=== PATIENT | female | born 1940 | race Caucasian/White ===

== ENCOUNTER 2016-10-22 19:35 | Inpatient (IN) ==
[2016-10-22] MEDS ORDERED: Ipratropium/Albuterol Neb 3 ML IH ONE (20:01)
--- NOTE | 2016-10-22 20:38 | Emergency Department Note ---
Disposition Clinical Impression: Pneumonia Qualifiers: Pneumonia type: due to unspecified organism Laterality: right Lung location: unspecified part of lung Qualified Code(s): J18.9 - Pneumonia, unspecified organism Disposition: Admitted As Inpatient Condition: Good Time of Disposition: 22:49 SOB HPI - General Chief Complaint: ED Shortness of Breath/Dyspnea Stated Complaint: "BHARGAVI/Pneumonia" Time Seen by Provider: 10/22/16 19:54 Source: patient Mode of arrival: ambulatory Limitations: no limitations Nursing Notes Reviewed: Yes Vital Signs Reviewed: Yes - History of Present Illness 76-year-old female presents with persistent productive cough and shortness of breath in the context of hospitalization for pneumonia 2 weeks ago. She was discharged with azithromycin and also given prednisone without significant improvement. She has significant antibiotic allergies which is why she is only taking azithromycin. She does not have fevers, but does complain of chills. She denies any chest pain. She denies nausea, vomiting, abdominal pain, change in urination or bowel movements, rashes, lower extremity swelling or pain. Patient admits to tobacco abuse and history of COPD. No alcohol or drug use. Pt Subjective Complaint: shortness of breath, cough - Related Data Home Medications Medication Instructions Recorded Confirmed Aspirin [Adult Low Dose Aspirin EC] 81 mg PO BID 05/30/15 10/22/16 Labetalol [Trandate] 300 mg PO BID 05/30/15 10/22/16 Sertraline [Zoloft] 100 mg PO HS 05/30/15 10/22/16 HydrALAZINE 25 mg PO BID 10/22/16 10/22/16 Oxygen 2.5 l NS CONT 10/22/16 10/22/16 Potassium Chloride [K-Tab ER] 10 meq PO DAILY 10/22/16 10/22/16 Triamterene/HCTZ 37.5/25mg 1 each PO DAILY 10/22/16 10/22/16 [Dyazide] Vitamin E (Dl,Tocopheryl Acet) 400 unit PO DAILY 10/22/16 10/22/16 [Vitamin E] Previous Rx's Medication Instructions Recorded Ipratropium/Albuterol Neb [Duoneb] 3 ml IH [id number] PRN #0 inhsol 07/20/16 Allopurinol [Zyloprim 100 MG] 200 mg PO DAILY #60 tablet 10/11/16 Ascorbic Acid [Vitamin C] 500 mg PO DAILY@0630 #30 tablet 10/11/16 CloNIDine HCl 0.3 mg PO BID #180 tablet 10/11/16 Cyanocobalamin (B-12) [Vitamin B12] 1,000 mcg PO DAILY #30 tablet 10/11/16 Ferrous Sulfate 325 mg PO DAILY@0630 #30 tablet 10/11/16 Allergies Allergy/AdvReac Type Severity Reaction Status Date / Time amlodipine [From Norvasc] Allergy Hives Verified 10/07/16 12:10 Amoxicillin Allergy Hives Verified 10/07/16 12:10 atorvastatin [From Lipitor] Allergy Hives Verified 10/07/16 12:10 cefdinir [From Omnicef] Allergy Hives Verified 10/07/16 12:10 cefuroxime [From Ceftin] Allergy Hives Verified 10/07/16 12:10 cephalexin [From Keflex] Allergy Hives Verified 10/07/16 12:10 ciprofloxacin [From Cipro] Allergy Hives Verified 10/07/16 12:10 doxycycline Allergy Hives Verified 10/07/16 12:10 fluoxetine [From Prozac] Allergy Hives Verified 10/07/16 12:10 iodine Allergy Hives Verified 10/07/16 12:10 levofloxacin [From Levaquin] Allergy Hives Verified 10/07/16 12:10 metoprolol Allergy Hives Verified 10/07/16 12:10 nifedipine Allergy Hives Verified 10/07/16 12:10 Paroxetine [From Paxil] Allergy Hives Verified 10/07/16 12:10 Prazosin Allergy Hives Verified 10/07/16 12:10 Saxagliptin [From Onglyza] Allergy Hives Verified 10/07/16 12:10 simvastatin [From Zocor] Allergy Hives Verified 10/07/16 12:10 sitagliptin [From Januvia] Allergy Hives Verified 10/07/16 12:10 sulfamethoxazole Allergy Hives Verified 10/07/16 12:10 [From Bactrim] trimethoprim [From Bactrim] Allergy Hives Verified 10/07/16 12:10 Oxycodone AdvReac Headache Verified 10/07/16 12:10 All systems ED: reviewed and negative except as stated. Constitutional: Denies: fever Cardiovascular: Denies: chest pain Respiratory: Reports: cough, dyspnea, wheezes Gastrointestinal: Denies: nausea, vomiting Neurological: Reports: weakness Endocrine: Reports: fatigue Past Medical History - Past Medical History Attestation: Yes The following information was validated with the patient. Source: patient Medical history: Reports: arthritis, asthma, cancer, CHF, COPD, GERD, hyperlipidemia, hypertension, kidney stones, malignancy, osteoporosis, peripheral artery disease, renal disease, venous stasis, other Surgical history: Reports: appendectomy, cancer surgery, cholecystectomy, knee replacement, other Psychiatric history: Reports: anxiety, depression, other MEDICAL OFFICE ASST history: Reports: no MEDICAL OFFICE ASST history - Social History Smoking Status: Former smoker Smokeless Tobacco Status: No Alcohol use: Reports: none Drug use: Reports: none Physical Exam - Head Head exam: atraumatic, normocephalic, normal inspection - Eye Eye exam: Present: normal appearance, PERRL, EOMI - ENT ENT exam: normal exam, normal oropharynx, mucous membranes moist - Neck Neck exam: Present: normal inspection, full ROM, trachea midline - Chest Chest inspection: Present: normal inspection, symmetric chest wall rise - Respiratory Lungs mild wheezing bilaterally with good air movement throughout Cardiovascular Cardiovascular exam: Present: regular rate, normal rhythm, normal heart sounds - Abdominal Exam Abdominal exam: Present: soft, Non-Tender. Absent: tenderness, distention, guarding, rebound, rigidity - Extremities Exam Extremities exam: Present: normal inspection, full ROM - Expanded Lower Extremity Exam Hip/Pelvis exam: Present: normal inspection, full ROM - Back Exam Back exam: Present: normal inspection, full ROM. Absent: tenderness, CVA tenderness (R), CVA tenderness (L) - Neurological Exam Neurological exam: Present: alert, oriented X3, CN II-XII intact - Psychiatric Psychiatric exam: Present: normal affect, normal mood - Skin Skin exam: Present: warm, dry, intact, normal color - General Limitations: no limitations General appearance: alert Course - Reevaluation(s) Reevaluation #1: CT scan shows pneumonia without any obvious mass. Patient failed outpatient antibiotics. She has normal vitals, but will need admitted for healthcare associated pneumonia given her recent hospitalization. Case discussed with hospitalist on-call Dr. Kirby. He would like aztreonam and vancomycin for antibiotics. Time: 22:50 Vital Signs Temperature 98.4 F 10/22/16 19:42 Pulse Rate 85 10/22/16 19:42 Respiratory Rate 20 10/22/16 19:42 Blood Pressure 200/76 10/22/16 19:42 O2 Sat by Pulse Oximetry 96 10/22/16 19:42 Temperature 97.8 F 10/23/16 15:55 Pulse Rate 58 10/23/16 15:55 Respiratory Rate 14 10/23/16 15:55 Blood Pressure 190/76 10/23/16 15:55 O2 Sat by Pulse Oximetry 98 10/23/16 15:55 Oxygen Delivery Oxygen Delivery Nasal Cannula Shortness of Breath/Dyspnea - Lab Data Result diagrams: 10/23/16 05:50 10/23/16 05:50 Lab Results 10/22/16 10/22/16 10/22/16 Range/Units 21:18 21:18 21:18 WBC 13.5 H (4.3-11.1) K/mcL RBC 4.30 (3.82-4.97) M/mcL Hgb 11.0 L (11.5-15.4) g/dL Hct 35.9 (35.3-44.9) % MCV 83.5 (83.0-100.0) fL MCH 25.6 L (28.0-33.3) pg MCHC 30.6 L (31.6-35.5) g/dL RDW 15.9 H (11.5-14.5) % Plt Count 163 (140-400) K/mcL MPV 11.0 (9.4-12.4) fL Immature Gran % 1.5 (0-4) % Seg Neutrophils % 80.8 % Lymphocytes % 10.3 % Monocytes % 7.3 % Eosinophils % 0.0 % Basophils % 0.1 % Neutrophils # 10.9 H (1.6-8.9) K/mcL Lymphocytes # 1.4 (0.6-4.6) K/mcL Monocytes # 1.0 (0.0-1.3) K/mcL Eosinophils # 0.0 (0.0-0.6) K/mcL Basophils # 0.0 (0.0-0.2) K/mcL PT (9.4-12.1) Seconds INR Sodium 140 (136-145) mEq/L Potassium 4.0 (3.5-4.5) mEq/L Chloride 101 (98-109) mEq/L Carbon Dioxide 27 (19-29) mEq/L BUN 33 H (7-20) mg/dL Creatinine 1.29 H (0.57-1.11) mg/dL Est GFR ( Amer) 49 L (> 60) Est GFR (Non-Af Amer) 40 L (> 60) BUN/Creatinine Ratio 26 (6-26) Glucose 155 H (70-99) mg/dL Calculated Osmolality 300 (280-300) Calcium 8.6 (8.6-10.8) mg/dL Troponin I 0.02 (0-0.03) ng/mL B-Natriuretic Peptide (0-100) pg/mL 10/22/16 10/23/16 10/23/16 Range/Units 21:18 05:50 05:50 WBC 11.7 H (4.3-11.1) K/mcL RBC 4.07 (3.82-4.97) M/mcL Hgb 10.3 L (11.5-15.4) g/dL Hct 33.9 L (35.3-44.9) % MCV 83.3 (83.0-100.0) fL MCH 25.3 L (28.0-33.3) pg MCHC 30.4 L (31.6-35.5) g/dL RDW 15.9 H (11.5-14.5) % Plt Count 128 L (140-400) K/mcL MPV 10.7 (9.4-12.4) fL Immature Gran % (0-4) % Seg Neutrophils % % Lymphocytes % % Monocytes % % Eosinophils % % Basophils % % Neutrophils # (1.6-8.9) K/mcL Lymphocytes # (0.6-4.6) K/mcL Monocytes # (0.0-1.3) K/mcL Eosinophils # (0.0-0.6) K/mcL Basophils # (0.0-0.2) K/mcL PT 11.5 (9.4-12.1) Seconds INR 1.1 Sodium (136-145) mEq/L Potassium (3.5-4.5) mEq/L Chloride (98-109) mEq/L Carbon Dioxide (19-29) mEq/L BUN (7-20) mg/dL Creatinine (0.57-1.11) mg/dL Est GFR ( Amer) (> 60) Est GFR (Non-Af Amer) (> 60) BUN/Creatinine Ratio (6-26) Glucose (70-99) mg/dL Calculated Osmolality (280-300) Calcium (8.6-10.8) mg/dL Troponin I (0-0.03) ng/mL B-Natriuretic Peptide 124 H (0-100) pg/mL 10/23/16 Range/Units 05:50 WBC (4.3-11.1) K/mcL RBC (3.82-4.97) M/mcL Hgb (11.5-15.4) g/dL Hct (35.3-44.9) % MCV (83.0-100.0) fL MCH (28.0-33.3) pg MCHC (31.6-35.5) g/dL RDW (11.5-14.5) % Plt Count (140-400) K/mcL MPV (9.4-12.4) fL Immature Gran % (0-4) % Seg Neutrophils % % Lymphocytes % % Monocytes % % Eosinophils % % Basophils % % Neutrophils # (1.6-8.9) K/mcL Lymphocytes # (0.6-4.6) K/mcL Monocytes # (0.0-1.3) K/mcL Eosinophils # (0.0-0.6) K/mcL Basophils # (0.0-0.2) K/mcL PT (9.4-12.1) Seconds INR Sodium 141 (136-145) mEq/L Potassium 3.1 L (3.5-4.5) mEq/L Chloride 102 (98-109) mEq/L Carbon Dioxide 30 H (19-29) mEq/L BUN 32 H (7-20) mg/dL Creatinine 1.12 H (0.57-1.11) mg/dL Est GFR ( Amer) 57 L (> 60) Est GFR (Non-Af Amer) 47 L (> 60) BUN/Creatinine Ratio 29 H (6-26) Glucose 119 H (70-99) mg/dL Calculated Osmolality 300 (280-300) Calcium 8.1 L (8.6-10.8) mg/dL Troponin I (0-0.03) ng/mL B-Natriuretic Peptide (0-100) pg/mL - Radiology Data Chest CT 10/22/16 20:13 IMPRESSION: Small region of ground-glass opacity posteriorly in the right upper lobe. Findings may be infectious or inflammatory. Recommend follow-up in 3 months to ensure resolution. Otherwise, no substantial change since the previous exam. Scattered calcified granuloma as well as scarring in the right middle lobe. A few 5 mm or less pulmonary nodules which are similar to previous exam. D/ / Izabela Walters MD / Izabela Walters MD Interpreting Provider: Izabela Walters MD - EKG Data EKG attestation: Yes I reviewed and interpreted this EKG. EKG results narrative: EKG shows normal sinus rhythm at 67 with normal axis and intervals. No ST elevation or depression. No T-wave inversions or flattening. Attestation Statement - Attestation Attestation: I examined this patient and my medical decision-making was reviewed with the ACQUISITION CONSULTANT/PA/Advanced Practice Nurse/Resident Physician. I agree with the documented findings, disposition and treatment plan as described except to the extent set forth below. Patient presents to the emergency department with a chief complaint of shortness of breath. Patient states she feels worse and she was discharged from [facility] 2 weeks ago. She has been taking Zithromax with no relief. On exam she is awake and alert. Diffuse expiratory wheezing. Abdomen soft. Plan. Cardiac workup. Steroids and DuoNeb's. Likely readmission. Check CT chest.
[2016-10-22 21:37] LABS: Basophils % 0.1 %; Hematocrit 35.9 % (35.3-44.9); Immature Granulocytes % 1.5 % (0-4); Lymphocytes # 1.4 K/mcL (0.6-4.6); Lymphocytes % 10.3 %; Mean Corpuscular HGB Conc 30.6 g/dL (31.6-35.5); Mean Corpuscular Hemoglobin 25.6 pg (28.0-33.3); Mean Corpuscular Volume 83.5 fL (83.0-100.0); Monocytes % 7.3 %; Neutrophils # 10.9 K/mcL (1.6-8.9); Platelet Count 163 K/mcL (140-400); Red Cell Distribution Width 15.9 % (11.5-14.5); Segmented Neutrophils % 80.8 %
[2016-10-22 21:51] LABS: Calcium 8.6 mg/dL (8.6-10.8)
[2016-10-22] MEDS ORDERED: Aztreonam 1,000 MG in D5% in Water (Mini-Bag+) 100 ML IVPB STA (22:39)
[2016-10-22] MEDS ORDERED: Vancomycin (wt based) 1,000 MG VIAL IV STA (22:40)
[2016-10-22] MEDS ORDERED: Vancomycin 1,500 MG in D5% in Water 250 ML IVPB ONE (23:40)
--- NOTE | 2016-10-23 01:49 | Internal Med History&Physical ---
Date of Encounter: 10/23/16 Time of Encounter: 01:47 Assessment and Plan (1) Acute exacerbation of chronic obstructive airways disease Current visit: No Status: Acute Given her wheezing, increased oxygen demands and sputum, she likely has exacerbation of COPD Start on IV steroids, scheduled and PRN breathing treatments, and supplemental oxygen She is requesting Mucinex to help her expel sputum, which we will start (2) HCAP (healthcare-associated pneumonia) Current visit: Yes Status: Acute Her pneumonia still persists in the right lower lobe and she is at risk for HCAP given her recent hospitalization 2 weeks ago at [facility] Given her complicated allergy list, will start patient on Vancomycin and Aztreonam for MRSA and pseudmonas coverage Cultures obtained, await sensitivities prior to de-escalation She met 1/4 SIRS criteria with her WBC (3) CKD (chronic kidney disease) stage 3, GFR 30-59 ml/min Current visit: Yes Status: Chronic Stable, patient's Cr at 1.29 near her baseline Continue to trend kidney function, avoid nephrotoxic agents (4) CAD (coronary artery disease), [place] coronary artery Current visit: No Status: Chronic Stable, no current chest pain and negative troponin Will continue home dose of ASA and Labetalol Qualifiers: [place] vs. transplanted heart: [place] heart Associated angina: without angina Qualified Code(s): I25.10 - Atherosclerotic heart disease of [place] coronary artery without angina pectoris (5) Hypertension Current visit: No Status: Chronic Blood pressure slightly elevated since admission Will continue home of Hydralazine, Clonidine, and Labetalol Qualifiers: Hypertension type: essential hypertension Qualified Code(s): I10 - Essential (primary) hypertension (6) DVT prophylaxis Current visit: Yes Status: Acute Heparin 5000 units BID Internal Medicine - H&P: HPI Chief complaint: Shortness of breath Admitted From: Home Plans for Post Hospital Care: Home History of present illness: Ms. Howard is a 76 year old female presents with shortness of breath over the past 5 weeks. She describes a persistent productive cough and increased shortness of breath which caused her to be hospitalized 2 weeks ago at [facility]. She was found to have bilateral lower lobe pneumonia and was treated with Zithromax while inpatient and additionally was given oral Zithromax and prednisone upon discharge. She claims that she never felt better during her hospital stay and she continued to worsen throughout these last 2 weeks after being discharged. She does have history of COPD and uses 2 L of oxygen at home day and night. She also has breathing treatments which do help her, although only temporarily. Patient also complains of low-grade fever of 99.5 a few days ago associated with nausea and vomiting. She does admit to having a productive cough, but is unable to describe the sputum appearance as she swallows them. Patient denies any chest pain, lightheadedness, headaches, diarrhea, constipation, or history of blood clots. She lives alone and is independent with ADL. She uses an electric wheelchair for mobility as she cannot walk due arthritis and has a history of frequent falls in the past. Past Med Surg Social Fam HX - Past Medical History Medical history: arthritis, asthma, cancer, CHF, COPD, diabetes, GERD, hyperlipidemia, hypertension, kidney stones, malignancy, osteoporosis, peripheral artery disease, renal disease, venous stasis, other Psychiatric history: anxiety, depression - Past Surgical History Surgical History: appendectomy, cancer surgery, cholecystectomy, knee replacement, other - Social History Smoking Status: Former smoker Smokeless Tobacco Status: No Alcohol use: none Drug use: none - Family History Mother Name: MAURICIO Family Member Ethnicity: Non- Living Status: Age at : 62 Cause of : COMPLICATIONS FROM HEART SX Hx Family Cardiac Disorders: Yes Hx Family Respiratory Disorders: No Hx Family Cancer: No Hx Family GI Disorders: No Hx Family Endocrine Disorder: No Hx Family Neuromuscular Disorders: No Hx Family Neurologic Disorders: No Hx Family HEENT Disorders: No Hx Family Autoimmune Disorders: No Internal Medicine - H&P: Meds Aspirin [Adult Low Dose Aspirin EC] 81 mg PO BID 05/30/15 [History] Labetalol [Trandate] 300 mg PO BID 05/30/15 [History] Sertraline [Zoloft] 100 mg PO HS 05/30/15 [History] Ipratropium/Albuterol Neb [Duoneb] 3 ml IH [id number] PRN #0 inhsol 07/20/16 [Rx] Allopurinol [Zyloprim 100 MG] 200 mg PO DAILY #60 tablet 10/11/16 [Rx] Ascorbic Acid [Vitamin C] 500 mg PO DAILY@0630 #30 tablet 10/11/16 [Rx] CloNIDine HCl 0.3 mg PO BID #180 tablet 10/11/16 [Rx] Cyanocobalamin (B-12) [Vitamin B12] 1,000 mcg PO DAILY #30 tablet 10/11/16 [Rx] Ferrous Sulfate 325 mg PO DAILY@0630 #30 tablet 10/11/16 [Rx] HydrALAZINE 25 mg PO BID 10/22/16 [History] Oxygen 2.5 l NS CONT 10/22/16 [History] Potassium Chloride [K-Tab ER] 10 meq PO DAILY 10/22/16 [History] Triamterene/HCTZ 37.5/25mg [Dyazide] 1 each PO DAILY 10/22/16 [History] Vitamin E (Dl,Tocopheryl Acet) [Vitamin E] 400 unit PO DAILY 10/22/16 [History] Allergies amlodipine [From Norvasc] Allergy (Verified 10/07/16 12:10) Hives Amoxicillin Allergy (Verified 10/07/16 12:10) Hives atorvastatin [From Lipitor] Allergy (Verified 10/07/16 12:10) Hives cefdinir [From Omnicef] Allergy (Verified 10/07/16 12:10) Hives cefuroxime [From Ceftin] Allergy (Verified 10/07/16 12:10) Hives cephalexin [From Keflex] Allergy (Verified 10/07/16 12:10) Hives ciprofloxacin [From Cipro] Allergy (Verified 10/07/16 12:10) Hives doxycycline Allergy (Verified 10/07/16 12:10) Hives fluoxetine [From Prozac] Allergy (Verified 10/07/16 12:10) Hives iodine Allergy (Verified 10/07/16 12:10) Hives levofloxacin [From Levaquin] Allergy (Verified 10/07/16 12:10) Hives metoprolol Allergy (Verified 10/07/16 12:10) Hives nifedipine Allergy (Verified 10/07/16 12:10) Hives Paroxetine [From Paxil] Allergy (Verified 10/07/16 12:10) Hives Prazosin Allergy (Verified 10/07/16 12:10) Hives Saxagliptin [From Onglyza] Allergy (Verified 10/07/16 12:10) Hives simvastatin [From Zocor] Allergy (Verified 10/07/16 12:10) Hives sitagliptin [From Januvia] Allergy (Verified 10/07/16 12:10) Hives sulfamethoxazole [From Bactrim] Allergy (Verified 10/07/16 12:10) Hives trimethoprim [From Bactrim] Allergy (Verified 10/07/16 12:10) Hives Oxycodone Adverse Reaction (Verified 10/07/16 12:10) Headache All Systems PM: A 10-system review of systems was performed and is negative for pertinent findings except as documented above in the HPI. - Constitutional Constitutional: chills, fever(s), falls, no night sweats - EENT Eyes: no change in vision, no discharge, no pain, no photophobia Ears: no ear discharge, no ear pain, no tinnitus Nose, mouth and throat: no dysphagia, no nasal discharge, no neck pain, no sore throat - Cardiovascular Cardiovascular ROS IM: dyspnea, dyspnea on exertion, edema, no chest pain, no diaphoresis, no irregular heart rhythm, no lightheadedness, no palpitations, no syncope - Respiratory Respiratory: cough, wheezing, chest congestion, excessive phlegm production, no dyspnea, no pain with cough - Gastrointestinal Gastrointestinal: no abdominal pain, no diarrhea, no hematemesis, no hematochezia, no melena, no nausea, no vomiting - Genitourinary Genitourinary: no change in urinary stream, no dysuria, no flank pain, no hematuria - Musculoskeletal Musculoskeletal ROS IM: no numbness, no tingling - Integumentary Integumentary IM: no rash, no unusual bruising - Neurological Neurological ROS: no confusion, no convulsions, no focal weakness, no numbness, no tingling, no tremor(s) - Hematologic/Lymphatic Hematologic/Lymphatic: no easy bruising - Constitutional Vitals: Temp Pulse Resp BP Pulse Ox 98.5 F 74 16 160/75 97 10/23/16 01:05 10/23/16 01:05 10/23/16 01:05 10/23/16 01:05 10/23/16 01:05 General appearance: Present: cooperative, pleasant, no acute distress, obese, answers questions appropriately - Head Head exam: Present: atraumatic, normocephalic - Eye Eye exam: Present: PERRL, conjuntiva pink, sclera anicteric - Neck Neck exam general surgery: Present: supple, trachea midline. Absent: lymphadenopathy - Respiratory Respiratory exam: Present: wheezes (R > L). Absent: accessory muscle use, rales , respiratory distress, rhonchi - Cardiovascular Cardiovascular exam: Present: RRR, +S1, +S2. Absent: diastolic murmur, gallop, rubs, systolic murmur - GI/Abdominal GI/Abdominal exam: Present: normal bowel sounds, soft, no peritoneal signs. Absent: distended, guarding, hernia, rebound, rigid, tenderness - Extremities Exam Extremities exam: Present: pedal edema (2+ pitting BL LE), warm, radial pulses palpable and symetrical. Absent: calf tenderness, cyanotic - Neurological Exam Neurological exam: Present: alert, no focal deficits. Absent: facial droop, speech deficit - Skin Skin exam: Present: dry, intact Internal Med - H&P Results - Labs CBC & Chem 7: 10/22/16 21:18 10/22/16 21:18
[2016-10-23] MEDS ORDERED: Ondansetron ODT 4 MG TAB.RAPDIS SL PRN (02:03)
[2016-10-23] MEDS ORDERED: Acetaminophen 325 MG TABLET PO PRN (02:03)
[2016-10-23] MEDS ORDERED: Naloxone 0.4 MG/ML INJ IVP PRN (02:03)
[2016-10-23] MEDS ORDERED: Albuterol 2.5 MG/3 ML NEBULIZER IH PRN (02:07)
--- NOTE | 2016-10-23 03:15 | Event Note ---
Date of Encounter: 10/23/16 Time of Encounter: 03:15 Patients examined with medical advisor. Agree with assessment and plan
[2016-10-23] MEDS ORDERED: Vancomycin 1,250 MG in D5% in Water 250 ML IVPB SCH (04:00)
[2016-10-23] MEDS: Ipratropium/Albuterol Neb 3 ML IH SCH ×4 (04:05→22:07)
[2016-10-23] MEDS: Ascorbic Acid 500 MG TABLET PO SCH (05:14)
[2016-10-23] MEDS: *HR* Heparin 5,000 UNIT/ML VIAL SQ SCH ×2 (05:14→16:52)
[2016-10-23 06:09] LABS: Hematocrit 33.9 % (35.3-44.9); Hemoglobin 10.3 g/dL (11.5-15.4); Mean Corpuscular HGB Conc 30.4 g/dL (31.6-35.5); Mean Corpuscular Hemoglobin 25.3 pg (28.0-33.3); Mean Corpuscular Volume 83.3 fL (83.0-100.0); Mean Platelet Volume 10.7 fL (9.4-12.4); Platelet Count 128 K/mcL (140-400); Red Blood Count 4.07 M/mcL (3.82-4.97); Red Cell Distribution Width 15.9 % (11.5-14.5)
[2016-10-23 06:29] LABS: Calcium 8.1 mg/dL (8.6-10.8); Potassium 3.1 mEq/L (3.5-4.5)
[2016-10-23 06:44] LABS: INR 1.1; Prothrombin Time 11.5 Seconds (9.4-12.1)
[2016-10-23] MEDS: Aztreonam 1,000 MG in D5% in Water (Mini-Bag+) 100 ML IVPB SCH ×3 (07:40→23:17)
[2016-10-23] MEDS: Aspirin Enteric Coated 81 MG Tablet PO SCH ×2 (07:41→21:35)
[2016-10-23] MEDS: methylPREDNISolone 125 MG/2 ML VIAL IVP SCH ×3 (07:41→23:17)
[2016-10-23] MEDS: cloNIDine HCl 0.1 MG TABLET PO SCH ×2 (07:41→21:35)
[2016-10-23] MEDS: Cyanocobalamin (B-12) 1,000 MCG TABLET PO SCH (07:41)
[2016-10-23] MEDS ORDERED: hydrALAZINE 25 MG TABLET PO SCH (09:00)
--- NOTE | 2016-10-23 09:53 | Internal Med Progress Note ---
<AmadouMurtaza paredes - Last Filed: 10/23/16 15:53> Date of Encounter: 10/23/16 Time of Encounter: 09:00 - Assessment and plan (1) HCAP (healthcare-associated pneumonia) Current Visit: Yes Status: Acute Assessment and plan: Patient was recently at [place] for pneumonia 2 weeks ago. She came in with fever, productive cough. Chest CT showed small region of ground glass opacity posteriorly in the right upper lobe, along with nodules. Continue vancomycin and Aztreonam. blood cultures x2 pending. induced sputum culture pending. (2) Acute exacerbation of chronic obstructive airways disease Current Visit: No Status: Acute Assessment and plan: Etiology likely secondary to HCAP DuoNebs scheduled Q6HR Solumedrol 80mg Q8HR with low dose sliding scale insulin, ACHS accuchecks. incentive spirometry supplemental oxygen. (3) CKD (chronic kidney disease) stage 3, GFR 30-59 ml/min Current Visit: Yes Status: Chronic Assessment and plan: Stable, Cr at baseline Continue to monitor. (4) CAD (coronary artery disease), [place] coronary artery Current Visit: No Status: Chronic Assessment and plan: Continue home med ASA and lebatolol. Chest pain free. troponins negative. Qualifiers: [place] vs. transplanted heart: [place] heart Associated angina: without angina Qualified Code(s): I25.10 - Atherosclerotic heart disease of [place] coronary artery without angina pectoris (5) Hypertension Current Visit: No Status: Chronic Assessment and plan: continue home med clonidine, hydralazine, lebatolol. Qualifiers: Hypertension type: essential hypertension Qualified Code(s): I10 - Essential (primary) hypertension (6) DVT prophylaxis Current Visit: Yes Status: Acute Assessment and plan: Heparin SQ - Subjective Interval history: 76 year old female evaluated at bedside. She reports some nausea, but no vomiting, diarrhea, fever, chills. Patient was sitting up on the chair resting comfortably. - Constitutional Vitals: Temp Pulse Resp BP Pulse Ox 98.0 F 72 16 188/79 95 10/23/16 06:53 10/23/16 06:53 10/23/16 06:53 10/23/16 06:53 10/23/16 06:53 General appearance: Present: cooperative, A&O X 3, pleasant, no acute distress, obese, answers questions appropriately - Head Head exam: Present: atraumatic, normocephalic - Neck Neck exam general surgery: Present: supple, trachea midline - Respiratory Respiratory exam: Present: rales, rhonchi, wheezes - Cardiovascular Cardiovascular exam: Present: systolic murmur - GI/Abdominal GI/Abdominal exam: Present: hernia (umbillical), normal bowel sounds, soft. Absent: guarding, tenderness Additional comments: scars present from previous surgeries. - Extremities Exam Extremities exam: Absent: cyanotic, pedal edema - Neurological Exam Neurological exam: Present: alert, oriented X3, no focal deficits - Psychiatric Psychiatric exam: Present: normal affect, normal mood Internal Medicine: Result - Labs CBC & Chem 7: 10/23/16 05:50 10/23/16 05:50 - ABG Interpretation ABG results: PT/INR, D-dimer PT 11.5 Seconds (9.4-12.1) 10/23/16 05:50 Consult Discharge Plan - Plan Referrals: Gisselle Jeffery, AUDIT LEAD [Primary Care Provider] - <Jamar Mejia - Last Filed: 10/23/16 17:54> - Constitutional Vitals: Temp Pulse Resp BP Pulse Ox 97.8 F 58 16 190/76 98 10/23/16 15:55 10/23/16 15:55 10/23/16 16:42 10/23/16 15:55 10/23/16 16:42 Internal Medicine: Result - Labs CBC & Chem 7: 10/23/16 05:50 10/23/16 05:50 - ABG Interpretation ABG results: PT/INR, D-dimer PT 11.5 Seconds (9.4-12.1) 10/23/16 05:50 - Attending Attestation I examined this patient and my medical decision-making was reviewed with the RASPER MACHINE OPERATOR/PA/Advanced Practice Nurse/Resident Physician. I agree with the documented findings, disposition and treatment plan as described except to the extent set forth below 76 year old female Patient is being managed for COPDE and HCAP She has a PMH of arthritis, asthma, CHFpEF, COPD, diabetes, GERD, hyperlipidemia , hypertension, kidney stones, malignancy, osteoporosis, peripheral artery disease, renal disease, venous stasis She is seen at bedside, sitting out of bed to chair with the team She reports clinical improvement Physical exam remarkable for diffuse corase breath sounds and rhonchi in RUL Labs and Imaging reviewed. Continue current management, follow microbiology Obtain sputum and send for culture She is high risk due to Vancomycin which needs serum level monitoring for toxicity
[2016-10-23] MEDS ORDERED: D5% in Water 1,000 ML IV PRN (10:54)
[2016-10-23] MEDS ORDERED: Dextrose Gel 15 GM PO PRN ×2 (10:54)
[2016-10-23] MEDS ORDERED: *HR* Dextrose 50 % in Water (Syg) 50 ML SYRINGE IVP PRN (10:54)
[2016-10-23] MEDS: Insulin LISPRO 300 UNITS/3 ML VIAL SQ SCH ×3 (11:31→21:30)
[2016-10-23] MEDS: Budesonide/Formoterol 160/4.5 MDI IH SCH ×2 (11:44→22:08)
--- NOTE | 2016-10-23 13:51 | Electrocardiograph Report ---
[place] [id number] Test Date: 2016-10-22 Pat Name: Sherice Howard Department: 105 Room: [facility] Gender: F Fnp: : 1940 Requested By: Josh Waterman Order Number: [id number] Reading MD: Grant Angulo MD Measurements Intervals [place] Rate: 67 P: 62 LA: 142 QRS: 85 QRSD: 97 T: 48 QT: 409 QTc: 424 Interpretive Statements SINUS RHYTHM Poor R wave progression Electronically Signed On 10-23-2016 13:50:10 EST by Grant Angulo MD
[2016-10-23] MEDS: hydrALAZINE 25 MG TABLET PO SCH ×2 (14:13→21:35)
[2016-10-23] MEDS: Vancomycin 1,000 MG in D5% in Water 250 ML IVPB SCH (23:58)
[2016-10-24] MEDS: Ipratropium/Albuterol Neb 3 ML IH SCH ×4 (04:21→22:41)
[2016-10-24 05:26] LABS: Basophils % 0.1 %; Hematocrit 39.2 % (35.3-44.9); Immature Granulocytes % 2.1 % (0-4); Lymphocytes # 0.7 K/mcL (0.6-4.6); Lymphocytes % 4.9 %; Mean Corpuscular HGB Conc 30.6 g/dL (31.6-35.5); Mean Corpuscular Hemoglobin 25.2 pg (28.0-33.3); Mean Corpuscular Volume 82.2 fL (83.0-100.0); Mean Platelet Volume 10.8 fL (9.4-12.4); Monocytes # 0.1 K/mcL (0.0-1.3); Neutrophils # 13.1 K/mcL (1.6-8.9); Platelet Count 153 K/mcL (140-400); Red Blood Count 4.77 M/mcL (3.82-4.97); Segmented Neutrophils % 91.9 %
[2016-10-24] MEDS: Ascorbic Acid 500 MG TABLET PO SCH (05:29)
[2016-10-24] MEDS: *HR* Heparin 5,000 UNIT/ML VIAL SQ SCH ×2 (05:29→16:54)
[2016-10-24 05:35] LABS: Calcium 8.6 mg/dL (8.6-10.8); Magnesium 1.7 mg/dL (1.6-2.6); Potassium 4.1 mEq/L (3.5-4.5)
--- NOTE | 2016-10-24 08:54 | Internal Med Progress Note ---
<AmadouMurtaza paredes - Last Filed: 10/24/16 08:48> Date of Encounter: 10/24/16 Time of Encounter: 08:58 - Assessment and plan (1) HCAP (healthcare-associated pneumonia) Current Visit: Yes Status: Acute Assessment and plan: Patient was recently at [place] for pneumonia 2 weeks ago. She came in with fever, productive cough. Chest CT showed small region of ground glass opacity posteriorly in the right upper lobe, along with nodules. Continue vancomycin and Aztreonam. blood cultures x2 pending. induced sputum culture pending. 10/24 Preliminary blood cultures showed no growth. Prelim sputum culture showed gram positive cocci. lowered IV steroids to 40 Q12 vancomycin, Atreonam day 2. (2) Acute exacerbation of chronic obstructive airways disease Current Visit: No Status: Acute Assessment and plan: Etiology likely secondary to HCAP DuoNebs scheduled Q6HR Solumedrol 40 A12 with low dose sliding scale insulin, ACHS accuchecks. incentive spirometry supplemental oxygen. (3) CKD (chronic kidney disease) stage 3, GFR 30-59 ml/min Current Visit: Yes Status: Chronic Assessment and plan: Stable, Cr at baseline Continue to monitor. (4) CAD (coronary artery disease), [place] coronary artery Current Visit: No Status: Chronic Assessment and plan: Continue home med ASA and lebatolol. Chest pain free. troponins negative. Qualifiers: [place] vs. transplanted heart: [place] heart Associated angina: without angina Qualified Code(s): I25.10 - Atherosclerotic heart disease of [place] coronary artery without angina pectoris (5) Hypertension Current Visit: No Status: Chronic Assessment and plan: continue home med clonidine, hydralazine, lebatolol. Have added IV hydralazine PRN Qualifiers: Hypertension type: essential hypertension Qualified Code(s): I10 - Essential (primary) hypertension (6) DVT prophylaxis Current Visit: Yes Status: Acute Assessment and plan: Heparin SQ - Subjective Interval history: 76 year old female evaluated at bedside. SHe denies nausea, vomiting, diarrhea, fever, chills. She also denies shortness of breath and lightheadedness. - Constitutional Vitals: Temp Pulse Resp BP Pulse Ox 97.6 F 95 16 156/76 94 L 10/24/16 07:20 10/24/16 07:20 10/24/16 07:20 10/24/16 07:20 10/24/16 07:20 General appearance: Present: cooperative, A&O X 3, pleasant, no acute distress, obese, answers questions appropriately - Head Head exam: Present: atraumatic, normocephalic - Neck Neck exam general surgery: Present: supple, trachea midline - Respiratory Respiratory exam: Present: rhonchi, wheezes - Cardiovascular Cardiovascular exam: Present: RRR - GI/Abdominal GI/Abdominal exam: Present: normal bowel sounds, soft. Absent: tenderness - Extremities Exam Additional comments: trace lower extremity bilateral edema. - Neurological Exam Neurological exam: Present: alert, oriented X3, no focal deficits Internal Medicine: Result - Labs CBC & Chem 7: 10/24/16 04:55 10/24/16 04:55 Labs: Short CBC 10/24/16 Range/Units 04:55 WBC 14.2 H (4.3-11.1) K/mcL Hgb 12.0 D (11.5-15.4) g/dL Hct 39.2 (35.3-44.9) % Plt Count 153 (140-400) K/mcL Neutrophils # 13.1 H (1.6-8.9) K/mcL BMP 10/24/16 04:55 Sodium 137 Potassium 4.1 D Chloride 99 Carbon Dioxide 28 BUN 38 H Creatinine 1.12 H Glucose 209 H Calcium 8.6 - ABG Interpretation ABG results: PT/INR, D-dimer PT 11.5 Seconds (9.4-12.1) 10/23/16 05:50 Consult Discharge Plan - Plan Referrals: Gisselle Jeffery, FINANCIAL QUANTITATIVE ANALYST [Primary Care Provider] - <Jamar Mejia - Last Filed: 10/24/16 16:57> - Constitutional Vitals: Temp Pulse Resp BP Pulse Ox 98.5 F 89 16 136/68 96 10/24/16 15:33 10/24/16 15:33 10/24/16 15:33 10/24/16 15:33 10/24/16 15:33 Internal Medicine: Result - Labs CBC & Chem 7: 10/24/16 04:55 10/24/16 04:55 Labs: Short CBC 10/24/16 Range/Units 04:55 WBC 14.2 H (4.3-11.1) K/mcL Hgb 12.0 D (11.5-15.4) g/dL Hct 39.2 (35.3-44.9) % Plt Count 153 (140-400) K/mcL Neutrophils # 13.1 H (1.6-8.9) K/mcL BMP 10/24/16 04:55 Sodium 137 Potassium 4.1 D Chloride 99 Carbon Dioxide 28 BUN 38 H Creatinine 1.12 H Glucose 209 H Calcium 8.6 - ABG Interpretation ABG results: PT/INR, D-dimer PT 11.5 Seconds (9.4-12.1) 10/23/16 05:50 - Attending Attestation I examined this patient and my medical decision-making was reviewed with the HAND VIOLIN MAKER/PA/Advanced Practice Nurse/Resident Physician. I agree with the documented findings, disposition and treatment plan as described except to the extent set forth below 76 year old female Patient is being managed for COPDE and HCAP She has a PMH of arthritis, asthma, CHFpEF, COPD, diabetes, GERD, hyperlipidemia , hypertension, kidney stones, malignancy, osteoporosis, peripheral artery disease, renal disease, venous stasis She is seen at bedside, sitting out of bed to chair She reports clinical improvement Physical exam remarkable for diffuse coarse breath sounds and rhonchi in RUL Labs and Imaging reviewed. Worsening leukocytosis, possibly from steroids as patient looks clinically stable Continue current management, taper steroids, follow microbiology She is high risk due to Vancomycin which needs serum level monitoring for toxicity
[2016-10-24] MEDS: Insulin LISPRO 300 UNITS/3 ML VIAL SQ SCH ×4 (09:07→21:33)
[2016-10-24] MEDS: Aztreonam 1,000 MG in D5% in Water (Mini-Bag+) 100 ML IVPB SCH ×2 (09:07→15:17)
[2016-10-24] MEDS: Aspirin Enteric Coated 81 MG Tablet PO SCH ×2 (09:08→21:11)
[2016-10-24] MEDS: Cyanocobalamin (B-12) 1,000 MCG TABLET PO SCH (09:08)
[2016-10-24] MEDS: hydrALAZINE 25 MG TABLET PO SCH ×3 (09:08→21:11)
[2016-10-24] MEDS: cloNIDine HCl 0.1 MG TABLET PO SCH ×2 (09:09→21:11)
[2016-10-24] MEDS: methylPREDNISolone 125 MG/2 ML VIAL IVP SCH ×2 (09:31→21:11)
[2016-10-24] MEDS: Budesonide/Formoterol 160/4.5 MDI IH SCH ×2 (11:32→22:41)
[2016-10-24] MEDS: Benzonatate 100 MG CAPSULE PO PRN (15:42)
[2016-10-25] MEDS: Aztreonam 1,000 MG in D5% in Water (Mini-Bag+) 100 ML IVPB SCH ×2 (00:02→07:48)
[2016-10-25] MEDS: Vancomycin 1,000 MG in D5% in Water 250 ML IVPB SCH (00:05)
[2016-10-25] MEDS: Benzonatate 100 MG CAPSULE PO PRN ×3 (00:49→14:50)
[2016-10-25] MEDS: Ipratropium/Albuterol Neb 3 ML IH SCH ×4 (04:19→21:06)
[2016-10-25 04:47] LABS: Basophils % 0.1 %; Hematocrit 35.4 % (35.3-44.9); Immature Granulocytes % 1.4 % (0-4); Lymphocytes # 0.7 K/mcL (0.6-4.6); Lymphocytes % 3.7 %; Mean Corpuscular HGB Conc 31.1 g/dL (31.6-35.5); Mean Corpuscular Hemoglobin 25.8 pg (28.0-33.3); Mean Corpuscular Volume 82.9 fL (83.0-100.0); Mean Platelet Volume 11.5 fL (9.4-12.4); Monocytes # 0.5 K/mcL (0.0-1.3); Monocytes % 2.5 %; Neutrophils # 16.8 K/mcL (1.6-8.9); Platelet Count 169 K/mcL (140-400); Red Blood Count 4.27 M/mcL (3.82-4.97); Red Cell Distribution Width 16.4 % (11.5-14.5); Segmented Neutrophils % 92.3 %
[2016-10-25] MEDS: *HR* Heparin 5,000 UNIT/ML VIAL SQ SCH ×2 (04:52→16:49)
[2016-10-25] MEDS: Ascorbic Acid 500 MG TABLET PO SCH (04:57)
[2016-10-25 05:18] LABS: Calcium 8.1 mg/dL (8.6-10.8); Potassium 4.2 mEq/L (3.5-4.5)
[2016-10-25] MEDS: predniSONE 20 MG TABLET PO SCH (07:47)
[2016-10-25] MEDS: hydrALAZINE 25 MG TABLET PO SCH ×3 (07:47→20:19)
[2016-10-25] MEDS: Cyanocobalamin (B-12) 1,000 MCG TABLET PO SCH (07:48)
[2016-10-25] MEDS: Insulin LISPRO 300 UNITS/3 ML VIAL SQ SCH ×4 (07:48→20:21)
[2016-10-25] MEDS: cloNIDine HCl 0.1 MG TABLET PO SCH ×2 (07:48→20:20)
[2016-10-25] MEDS: Aspirin Enteric Coated 81 MG Tablet PO SCH ×2 (07:48→20:19)
[2016-10-25] MEDS: Acetylcysteine 10% 2 ML INHSOL IH SCH ×3 (11:46→21:07)
[2016-10-25] MEDS: Budesonide/Formoterol 160/4.5 MDI IH SCH ×2 (11:46→21:06)
--- NOTE | 2016-10-25 14:39 | Internal Med Progress Note ---
<AmadouMurtaza paredes - Last Filed: 10/25/16 14:37> Date of Encounter: 10/25/16 Time of Encounter: 09:45 - Assessment and plan (1) HCAP (healthcare-associated pneumonia) Current Visit: Yes Status: Acute Assessment and plan: Patient was recently at [place] for pneumonia 2 weeks ago. She came in with fever, productive cough. Chest CT showed small region of ground glass opacity posteriorly in the right upper lobe, along with nodules. Continue vancomycin and Aztreonam. blood cultures x2 pending. induced sputum culture pending. 10/24 Preliminary blood cultures showed no growth. Prelim sputum culture showed gram positive cocci. lowered IV steroids to 40 Q12 vancomycin, Atreonam day 2. 10/25: sputum culture report showed presumptively identified as S.aureus species. vanc/aztronam stopped, Linezolid started. (2) Acute exacerbation of chronic obstructive airways disease Current Visit: No Status: Acute Assessment and plan: Etiology likely secondary to HCAP DuoNebs scheduled Q6HR low dose sliding scale insulin, ACHS accuchecks. incentive spirometry supplemental oxygen. 10/25: solumedrol stopped, patient started on Prednisone PO daily. (3) CKD (chronic kidney disease) stage 3, GFR 30-59 ml/min Current Visit: Yes Status: Chronic Assessment and plan: Cr increaed to 1.5 today, likely due to vancomycin. (4) CAD (coronary artery disease), [place] coronary artery Current Visit: No Status: Chronic Assessment and plan: Continue home med ASA and lebatolol. Chest pain free. troponins negative. Qualifiers: [place] vs. transplanted heart: [place] heart Associated angina: without angina Qualified Code(s): I25.10 - Atherosclerotic heart disease of [place] coronary artery without angina pectoris (5) Hypertension Current Visit: No Status: Chronic Assessment and plan: continue home med clonidine, hydralazine, lebatolol. Have added IV hydralazine PRN Qualifiers: Hypertension type: essential hypertension Qualified Code(s): I10 - Essential (primary) hypertension (6) DVT prophylaxis Current Visit: Yes Status: Acute Assessment and plan: Heparin SQ - Subjective Interval history: 76 year old female evaluated at bedside. patient was sitting up in her chair and eating breakfast during examination. - Constitutional Vitals: Temp Pulse Resp BP Pulse Ox 97.5 F L 70 18 111/66 93 L 10/25/16 11:36 10/25/16 11:36 10/25/16 11:46 10/25/16 11:36 10/25/16 11:46 General appearance: Present: cooperative, A&O X 3, pleasant, no acute distress, obese, answers questions appropriately - Head Head exam: Present: atraumatic, normocephalic - Neck Neck exam general surgery: Present: supple, trachea midline - Respiratory Respiratory exam: Present: rhonchi, wheezes - Cardiovascular Cardiovascular exam: Present: RRR, +S1, +S2 - GI/Abdominal GI/Abdominal exam: Present: normal bowel sounds, soft. Absent: distended, tenderness - Extremities Exam Additional comments: trace edema present. - Neurological Exam Neurological exam: Present: alert, oriented X3 Internal Medicine: Result - Labs CBC & Chem 7: 10/25/16 04:29 10/25/16 04:29 Labs: Short CBC 10/25/16 Range/Units 04:29 WBC 18.2 H (4.3-11.1) K/mcL Hgb 11.0 L (11.5-15.4) g/dL Hct 35.4 (35.3-44.9) % Plt Count 169 (140-400) K/mcL Neutrophils # 16.8 H (1.6-8.9) K/mcL BMP 10/25/16 04:29 Sodium 136 Potassium 4.2 Chloride 100 Carbon Dioxide 25 BUN 56 H D Creatinine 1.50 H Glucose 229 H Calcium 8.1 L - ABG Interpretation ABG results: PT/INR, D-dimer PT 11.5 Seconds (9.4-12.1) 10/23/16 05:50 Consult Discharge Plan - Plan Referrals: Gisselle Jeffery, DUMPCART DRIVER [Primary Care Provider] - <Jamar Mejia - Last Filed: 10/25/16 16:38> - Assessment and plan (1) Acute kidney injury superimposed on CKD Current Visit: No Status: Acute Assessment and plan: Possibly drug induced from Vancomycin Hold Vancomycin - Constitutional Vitals: Temp Pulse Resp BP Pulse Ox 97.9 F 83 24 126/66 98 10/25/16 14:43 10/25/16 14:43 10/25/16 15:49 10/25/16 14:43 10/25/16 15:49 Internal Medicine: Result - Labs CBC & Chem 7: 10/25/16 04:29 10/25/16 04:29 Labs: Short CBC 10/25/16 Range/Units 04:29 WBC 18.2 H (4.3-11.1) K/mcL Hgb 11.0 L (11.5-15.4) g/dL Hct 35.4 (35.3-44.9) % Plt Count 169 (140-400) K/mcL Neutrophils # 16.8 H (1.6-8.9) K/mcL BMP 10/25/16 04:29 Sodium 136 Potassium 4.2 Chloride 100 Carbon Dioxide 25 BUN 56 H D Creatinine 1.50 H Glucose 229 H Calcium 8.1 L - ABG Interpretation ABG results: PT/INR, D-dimer PT 11.5 Seconds (9.4-12.1) 10/23/16 05:50 - Attending Attestation I examined this patient and my medical decision-making was reviewed with the CHICKEN CUTTER/PA/Advanced Practice Nurse/Resident Physician. I agree with the documented findings, disposition and treatment plan as described except to the extent set forth below 76 year old female Patient is being managed for COPDE and HCAP She has a PMH of arthritis, asthma, CHFpEF, COPD, diabetes, GERD, hyperlipidemia , hypertension, kidney stones, malignancy, osteoporosis, peripheral artery disease, renal disease, venous stasis She is seen at bedside, sitting out of bed to chair She reports clinical improvement Physical exam remarkable for diffuse coarse breath sounds and rhonchi in RUL Labs and Imaging reviewed. Worsening leukocytosis, possibly from steroids as patient looks clinically stable Sputum culture with gram positive cocci, sensitivity is pending Patient's creatinine today is 1.50(1.12 on 10/24) and her GFR 34 (47 on 10/24) Due to MARTIN, Will stop vancomycin, will switch to linezolid Due to sputum growing GPC preliminary reading of STAPH not STREP, will hold aztreonam BP is controlled, continue same meds
[2016-10-25] MEDS: Linezolid 600 MG TABLET PO SCH (20:20)
[2016-10-26] MEDS: Ipratropium/Albuterol Neb 3 ML IH SCH ×4 (04:45→22:38)
[2016-10-26] MEDS: Acetylcysteine 10% 2 ML INHSOL IH SCH ×4 (04:46→22:38)
[2016-10-26 05:37] LABS: Basophils % 0.1 %; Hematocrit 35.4 % (35.3-44.9); Immature Granulocytes % 1.2 % (0-4); Lymphocytes # 1.3 K/mcL (0.6-4.6); Lymphocytes % 9.6 %; Mean Corpuscular HGB Conc 31.1 g/dL (31.6-35.5); Mean Corpuscular Hemoglobin 25.9 pg (28.0-33.3); Mean Corpuscular Volume 83.3 fL (83.0-100.0); Mean Platelet Volume 10.9 fL (9.4-12.4); Monocytes % 7.3 %; Neutrophils # 11.4 K/mcL (1.6-8.9); Platelet Count 151 K/mcL (140-400); Red Blood Count 4.25 M/mcL (3.82-4.97); Red Cell Distribution Width 16.8 % (11.5-14.5); Segmented Neutrophils % 81.8 %
[2016-10-26 05:51] LABS: Calcium 7.9 mg/dL (8.6-10.8); Potassium 3.7 mEq/L (3.5-4.5)
[2016-10-26] MEDS: *HR* Heparin 5,000 UNIT/ML VIAL SQ SCH ×2 (06:12→17:08)
[2016-10-26] MEDS: Ascorbic Acid 500 MG TABLET PO SCH (06:13)
[2016-10-26] MEDS: Insulin LISPRO 300 UNITS/3 ML VIAL SQ SCH ×4 (07:52→21:10)
[2016-10-26] MEDS: cloNIDine HCl 0.1 MG TABLET PO SCH ×2 (09:28→21:10)
[2016-10-26] MEDS: Linezolid 600 MG TABLET PO SCH ×2 (09:28→21:10)
[2016-10-26] MEDS: Cyanocobalamin (B-12) 1,000 MCG TABLET PO SCH (09:29)
[2016-10-26] MEDS: Aspirin Enteric Coated 81 MG Tablet PO SCH ×2 (09:30→21:10)
[2016-10-26] MEDS: predniSONE 20 MG TABLET PO SCH (09:30)
[2016-10-26] MEDS: hydrALAZINE 25 MG TABLET PO SCH ×3 (09:30→21:09)
--- NOTE | 2016-10-26 09:42 | Internal Med Progress Note ---
Date of Encounter: 10/26/16 Time of Encounter: 09:39 - Assessment and plan (1) HCAP (healthcare-associated pneumonia) Current Visit: Yes Status: Acute Assessment and plan: Patient was recently at [place] for pneumonia 2 weeks ago. She came in with fever, productive cough. Chest CT showed small region of ground glass opacity posteriorly in the right upper lobe, along with nodules. sputum culture report showed presumptively identified as S.aureus species. This will be day 3 of antibiotics. Day 2 of linezolid Continue Linezolid. Patient has allergies to other antibiotics that Staphylococcus aureus is sensitive to. (2) CKD (chronic kidney disease) stage 3, GFR 30-59 ml/min Current Visit: Yes Status: Chronic Assessment and plan: Patient and creatinine is from 1.1-1.2. In the past 2 days she has had worsening of her creatinine likely secondary to vancomycin use. Vancomycin was discontinued. Today at 1.41 We will continue monitoring. Avoid nephrotoxic drugs. (3) Acute exacerbation of chronic obstructive airways disease Current Visit: No Status: Acute Assessment and plan: Etiology likely secondary to HCAP DuoNebs scheduled Q6HR incentive spirometry supplemental oxygen. Continue prednisone (4) CAD (coronary artery disease), [place] coronary artery Current Visit: No Status: Chronic Assessment and plan: Continue home med ASA and lebatolol. Chest pain free. troponins negative. Qualifiers: [place] vs. transplanted heart: [place] heart Associated angina: without angina Qualified Code(s): I25.10 - Atherosclerotic heart disease of [place] coronary artery without angina pectoris (5) Hypertension Current Visit: No Status: Chronic Assessment and plan: Controlled continue home med clonidine, hydralazine, lebatolol. Have added IV hydralazine PRN Qualifiers: Hypertension type: essential hypertension Qualified Code(s): I10 - Essential (primary) hypertension (6) DVT prophylaxis Current Visit: Yes Status: Acute Assessment and plan: Heparin SQ - Subjective Interval history: Patient has no complaints this morning. - Constitutional Vitals: Temp Pulse Resp BP Pulse Ox 98.4 F 56 16 148/97 98 10/26/16 06:58 10/26/16 06:58 10/26/16 06:58 10/26/16 06:58 10/26/16 06:58 General appearance: Present: cooperative, A&O X 3, pleasant, no acute distress, obese, answers questions appropriately - Respiratory Respiratory exam: Present: rhonchi, wheezes Additional comments: Improved from yesterday - Cardiovascular Cardiovascular exam: Present: RRR, +S1, +S2. Absent: diastolic murmur, gallop, rubs, systolic murmur - GI/Abdominal GI/Abdominal exam: Present: normal bowel sounds, soft, no peritoneal signs. Absent: distended, tenderness - Extremities Exam Extremities exam: Present: pedal edema (Trace), radial pulses palpable and symetrical. Absent: tenderness Internal Medicine: Result - Labs CBC & Chem 7: 10/26/16 05:17 10/26/16 05:17 Labs: Short CBC 10/26/16 Range/Units 05:17 WBC 14.0 H (4.3-11.1) K/mcL Hgb 11.0 L (11.5-15.4) g/dL Hct 35.4 (35.3-44.9) % Plt Count 151 (140-400) K/mcL Neutrophils # 11.4 H (1.6-8.9) K/mcL BMP 10/26/16 05:17 Sodium 140 Potassium 3.7 Chloride 102 Carbon Dioxide 27 BUN 64 H Creatinine 1.41 H Glucose 147 H Calcium 7.9 L - ABG Interpretation ABG results: PT/INR, D-dimer PT 11.5 Seconds (9.4-12.1) 10/23/16 05:50 Consult Discharge Plan - Plan Referrals: Gisselle Jeffery, CONTROL PANEL OPERATOR CRUDE UNIT [Primary Care Provider] -
[2016-10-26] MEDS: Budesonide/Formoterol 160/4.5 MDI IH SCH ×2 (10:34→22:38)
--- NOTE | 2016-10-26 14:19 | Discharge Summary ---
Date of Encounter: 10/26/16 Time of Encounter: 14:11 - Discharge Diagnosis (1) HCAP (healthcare-associated pneumonia) Priority: Primary Status: Acute (2) CKD (chronic kidney disease) stage 3, GFR 30-59 ml/min Priority: Secondary Status: Chronic (3) Acute exacerbation of chronic obstructive airways disease Priority: Secondary Status: Acute (4) CAD (coronary artery disease), [place] coronary artery Priority: Secondary Status: Chronic Qualifiers: [place] vs. transplanted heart: [place] heart Associated angina: without angina Qualified Code(s): I25.10 - Atherosclerotic heart disease of [place] coronary artery without angina pectoris (5) Hypertension Priority: Secondary Status: Chronic Qualifiers: Hypertension type: essential hypertension Qualified Code(s): I10 - Essential (primary) hypertension (6) DVT prophylaxis Priority: Secondary Status: Acute - Discharge Medications Prescriptions: Linezolid [Zyvox] 600 mg PO BID #20 tablet PredniSONE 40 mg PO DAILY #4 tablet Home Medications: Aspirin [Adult Low Dose Aspirin EC] 81 mg PO BID 05/30/15 [History] Labetalol [Trandate] 300 mg PO BID 05/30/15 [History] Sertraline [Zoloft] 100 mg PO HS 05/30/15 [History] Ipratropium/Albuterol Neb [Duoneb] 3 ml IH [id number] PRN #0 inhsol 07/20/16 [Rx] Allopurinol [Zyloprim 100 MG] 200 mg PO DAILY #60 tablet 10/11/16 [Rx] Ascorbic Acid [Vitamin C] 500 mg PO DAILY@0630 #30 tablet 10/11/16 [Rx] CloNIDine HCl 0.3 mg PO BID #180 tablet 10/11/16 [Rx] Cyanocobalamin (B-12) [Vitamin B12] 1,000 mcg PO DAILY #30 tablet 10/11/16 [Rx] Ferrous Sulfate 325 mg PO DAILY@0630 #30 tablet 10/11/16 [Rx] HydrALAZINE 25 mg PO BID 10/22/16 [History] Oxygen 2.5 l NS CONT 10/22/16 [History] Potassium Chloride [K-Tab ER] 10 meq PO DAILY 10/22/16 [History] Triamterene/HCTZ 37.5/25mg [Dyazide] 1 each PO DAILY 10/22/16 [History] Vitamin E (Dl,Tocopheryl Acet) [Vitamin E] 400 unit PO DAILY 10/22/16 [History] Linezolid [Zyvox] 600 mg PO BID #20 tablet 10/26/16 [Rx] PredniSONE 40 mg PO DAILY #4 tablet 10/26/16 [Rx] Allergies/Adverse Reactions: Allergies amlodipine [From Norvasc] Allergy (Verified 10/07/16 12:10) Hives Amoxicillin Allergy (Verified 10/07/16 12:10) Hives atorvastatin [From Lipitor] Allergy (Verified 10/07/16 12:10) Hives cefdinir [From Omnicef] Allergy (Verified 10/07/16 12:10) Hives cefuroxime [From Ceftin] Allergy (Verified 10/07/16 12:10) Hives cephalexin [From Keflex] Allergy (Verified 10/07/16 12:10) Hives ciprofloxacin [From Cipro] Allergy (Verified 10/07/16 12:10) Hives doxycycline Allergy (Verified 10/07/16 12:10) Hives fluoxetine [From Prozac] Allergy (Verified 10/07/16 12:10) Hives iodine Allergy (Verified 10/07/16 12:10) Hives levofloxacin [From Levaquin] Allergy (Verified 10/07/16 12:10) Hives metoprolol Allergy (Verified 10/07/16 12:10) Hives nifedipine Allergy (Verified 10/07/16 12:10) Hives Paroxetine [From Paxil] Allergy (Verified 10/07/16 12:10) Hives Prazosin Allergy (Verified 10/07/16 12:10) Hives Saxagliptin [From Onglyza] Allergy (Verified 10/07/16 12:10) Hives simvastatin [From Zocor] Allergy (Verified 10/07/16 12:10) Hives sitagliptin [From Januvia] Allergy (Verified 10/07/16 12:10) Hives sulfamethoxazole [From Bactrim] Allergy (Verified 10/07/16 12:10) Hives trimethoprim [From Bactrim] Allergy (Verified 10/07/16 12:10) Hives Oxycodone Adverse Reaction (Verified 10/07/16 12:10) Headache Date of admission: 10/23/16 08:15 Primary care physician: Gisselle Jeffery CNP Consults: 10/23/16 15:53 Consult to Respiratory Therapy [CONS] Stat Reason for Consult: please do an induced sputum culture. Call Completed: Yes Discharging clinician: Chavo Govea Anticipated date of discharge: 10/26/16 - Patient Status Disposition: Home, Self-Care Condition: Good Functional capacity at discharge: uses cane/walker - Discharge Instructions Follow Up With: Gisselle Jeffery CNP [Primary Care Provider] - - Diet and Activity Activity: as per physical therapy, wear oxygen at all times (2L) Diet: advance to your usual diet Hospital course: Ms. Howard is a 76 year old female presented with sob for 5 weeks. She was hospialized two weeks ago at [facility] and found to have bilateral lower lobe pneumonia and treated with zithormax. She never got better and presented to [facility]. She was admitted and treated for HCAP. She was stared on vancomycin and aztreonam for psuedomonal coverage. She also recieved O2 supplementation, steroids and bronchodialators. Sputum culutres positive for MSSA. She was transitioned to linezolid. Her sob improved. Leukocytosis is resolving (now 14) . Tody patient has minimal wheezing on exam, cough has resolved. She is able to ambulate and has good oral intake. SHe is on her home dose of O2. She can follow up with PCP. - Time Spent with Patient Total time spent providing and/or coordinating discharge services: - Constitutional Vitals: Temp Pulse Resp BP Pulse Ox 97.7 F 59 18 107/56 99 10/26/16 10:38 10/26/16 10:38 10/26/16 10:40 10/26/16 10:38 10/26/16 10:40 General appearance: Present: cooperative, A&O X 3, pleasant, no acute distress, obese, answers questions appropriately
[2016-10-26] MEDS ORDERED: Doxycycline 100 MG CAPSULE PO SCH ×2 (21:00)
[2016-10-27] MEDS: Ipratropium/Albuterol Neb 3 ML IH SCH ×2 (04:19→09:45)
[2016-10-27] MEDS: Acetylcysteine 10% 2 ML INHSOL IH SCH ×2 (04:19→09:45)
[2016-10-27] MEDS: Ascorbic Acid 500 MG TABLET PO SCH (06:26)
[2016-10-27] MEDS: *HR* Heparin 5,000 UNIT/ML VIAL SQ SCH (06:26)
[2016-10-27 06:42] VITALS: BP 146/73
[2016-10-27 06:50] LABS: Calcium 7.8 mg/dL (8.6-10.8); Potassium 3.8 mEq/L (3.5-4.5)
[2016-10-27 07:03] LABS: Hematocrit 33.4 % (35.3-44.9); Hemoglobin 10.2 g/dL (11.5-15.4); Immature Granulocytes % 1.7 % (0-4); Lymphocytes % 8.5 %; Mean Corpuscular HGB Conc 30.5 g/dL (31.6-35.5); Mean Corpuscular Hemoglobin 25.2 pg (28.0-33.3); Mean Corpuscular Volume 82.5 fL (83.0-100.0); Mean Platelet Volume 11.1 fL (9.4-12.4); Monocytes # 0.8 K/mcL (0.0-1.3); Monocytes % 6.8 %; Neutrophils # 9.3 K/mcL (1.6-8.9); Platelet Count 138 K/mcL (140-400); Red Blood Count 4.05 M/mcL (3.82-4.97); Red Cell Distribution Width 16.6 % (11.5-14.5)
--- NOTE | 2016-10-27 07:53 | Internal Med Progress Note ---
<Chavo Govea - Last Filed: 10/27/16 07:51> Date of Encounter: 10/27/16 Time of Encounter: 07:51 - Assessment and plan (1) HCAP (healthcare-associated pneumonia) Status: Acute Assessment and plan: Patient was recently at [facility] for pneumonia 2 weeks ago. She came in with fever, productive cough. Chest CT showed small region of ground glass opacity posteriorly in the right upper lobe, along with nodules. sputum culture report showed presumptively identified as S.aureus species. This will be day 4 of antibiotics. Day 3 of linezolid Continue Linezolid. Patient has allergies to other antibiotics that Staphylococcus aureus is sensitive to. d/c today (2) CKD (chronic kidney disease) stage 3, GFR 30-59 ml/min Status: Chronic Assessment and plan: Patient and creatinine is from 1.1-1.2. In the past 2 days she has had worsening of her creatinine likely secondary to vancomycin use. Vancomycin was discontinued. Today at 1.45 We will continue monitoring. Avoid nephrotoxic drugs. outpatient BMP (3) Acute exacerbation of chronic obstructive airways disease Status: Resolved Assessment and plan: Etiology likely secondary to HCAP DuoNebs scheduled Q6HR incentive spirometry supplemental oxygen. Continue prednisone resolved. (4) CAD (coronary artery disease), [place] coronary artery Status: Chronic Assessment and plan: Continue home med ASA and lebatolol. Chest pain free. troponins negative. Qualifiers: [place] vs. transplanted heart: [place] heart Associated angina: without angina Qualified Code(s): I25.10 - Atherosclerotic heart disease of [place] coronary artery without angina pectoris (5) Hypertension Status: Chronic Assessment and plan: Controlled continue home med clonidine, hydralazine, lebatolol. d/c on home meds. Qualifiers: Hypertension type: essential hypertension Qualified Code(s): I10 - Essential (primary) hypertension (6) DVT prophylaxis Status: Acute Assessment and plan: Heparin SQ - Subjective Interval history: Patient has no complaints this morning. - Constitutional Vitals: Temp Pulse Resp BP Pulse Ox 97.8 F 64 16 146/73 99 10/27/16 06:42 10/27/16 06:42 10/27/16 06:42 10/27/16 06:42 10/27/16 06:42 General appearance: Present: cooperative, A&O X 3, pleasant, no acute distress, obese, answers questions appropriately - Head Head exam: Present: atraumatic, normocephalic - Eye Eye exam: Present: PERRL, conjuntiva pink, sclera anicteric - Neck Neck exam general surgery: Present: supple, trachea midline. Absent: lymphadenopathy - Respiratory Respiratory exam: Present: CTAB. Absent: accessory muscle use, rales, rhonchi, wheezes - Cardiovascular Cardiovascular exam: Present: RRR, +S1, +S2. Absent: diastolic murmur, gallop, rubs, systolic murmur - GI/Abdominal GI/Abdominal exam: Present: normal bowel sounds, soft, no peritoneal signs. Absent: distended, tenderness - Extremities Exam Extremities exam: Present: warm, radial pulses palpable and symetrical. Absent : calf tenderness, cyanotic, pedal edema - Neurological Exam Neurological exam: Present: CN II-XII intact, oriented X3, no focal deficits. Absent: pronater drift, facial droop, speech deficit - Skin Skin exam: Present: dry, intact Internal Medicine: Result - Labs CBC & Chem 7: 10/27/16 05:15 10/27/16 05:15 Labs: Short CBC 10/27/16 Range/Units 05:15 WBC 11.2 H (4.3-11.1) K/mcL Hgb 10.2 L (11.5-15.4) g/dL Hct 33.4 L (35.3-44.9) % Plt Count 138 L (140-400) K/mcL Neutrophils # 9.3 H (1.6-8.9) K/mcL BMP 10/27/16 05:15 Sodium 138 Potassium 3.8 Chloride 102 Carbon Dioxide 25 BUN 64 H Creatinine 1.54 H Glucose 169 H Calcium 7.8 L - ABG Interpretation ABG results: PT/INR, D-dimer PT 11.5 Seconds (9.4-12.1) 10/23/16 05:50 Consult Discharge Plan - Plan Instructions: Prednisone (By mouth), Linezolid (By mouth) Referrals: Gisselle Jeffery, STRETCHING MACHINE OPERATOR [Primary Care Provider] - Prescriptions: Linezolid [Zyvox] 600 mg PO BID #20 tablet PredniSONE 40 mg PO DAILY #4 tablet <Jamar Mejia - Last Filed: 10/27/16 11:46> - Assessment and plan (1) Acute kidney injury superimposed on CKD Status: Acute - Constitutional Vitals: Temp Pulse Resp BP Pulse Ox 97.8 F 64 16 146/73 99 10/27/16 06:42 10/27/16 06:42 10/27/16 06:42 10/27/16 06:42 10/27/16 08:30 Internal Medicine: Result - Labs CBC & Chem 7: 10/27/16 05:15 10/27/16 05:15 Labs: Short CBC 10/27/16 Range/Units 05:15 WBC 11.2 H (4.3-11.1) K/mcL Hgb 10.2 L (11.5-15.4) g/dL Hct 33.4 L (35.3-44.9) % Plt Count 138 L (140-400) K/mcL Neutrophils # 9.3 H (1.6-8.9) K/mcL BMP 10/27/16 05:15 Sodium 138 Potassium 3.8 Chloride 102 Carbon Dioxide 25 BUN 64 H Creatinine 1.54 H Glucose 169 H Calcium 7.8 L - ABG Interpretation ABG results: PT/INR, D-dimer PT 11.5 Seconds (9.4-12.1) 10/23/16 05:50 - Attending Attestation I examined this patient and my medical decision-making was reviewed with the [employer]/PA/Advanced Practice Nurse/Resident Physician. I agree with the documented findings, disposition and treatment plan as described except to the extent set forth below. Patient seen at bedside, much more improved, has no new complains, CTAB, stable for discharge home Rest as in resident's documentation.
[2016-10-27] MEDS: Cyanocobalamin (B-12) 1,000 MCG TABLET PO SCH (08:33)
[2016-10-27] MEDS: Insulin LISPRO 300 UNITS/3 ML VIAL SQ SCH (08:33)
[2016-10-27] MEDS: Aspirin Enteric Coated 81 MG Tablet PO SCH (08:34)
[2016-10-27] MEDS: cloNIDine HCl 0.1 MG TABLET PO SCH (08:34)
[2016-10-27] MEDS: Linezolid 600 MG TABLET PO SCH (08:35)
[2016-10-27] MEDS: predniSONE 20 MG TABLET PO SCH (08:35)
[2016-10-27] MEDS: hydrALAZINE 25 MG TABLET PO SCH (08:35)
[2016-10-27] MEDS: Benzonatate 100 MG CAPSULE PO PRN (08:43)
[2016-10-27] MEDS: Budesonide/Formoterol 160/4.5 MDI IH SCH (09:45)
[2016-10-27] MEDS ORDERED: Aminoglycoside Consult 1 EACH MC ONE (11:14)
--- NOTE | 2016-10-28 16:21 | Event Note ---
Date of Encounter: 10/28/16 Time of Encounter: 08:00 I have called this patient's insurance company for pre-authorization for Zyvox And as at this time, i have not had a feedback Patient has MSSA pneumonia sensitive to Augmentin I called the patient to verify what her adverse reaction to Augmentin is, she states "maybe itching" I will go ahead and prescribe augementin po 875mg po bid in place of Zyvox for the main time Patient understands the risks of this
== END 2016-10-27 11:15 | disposition home or self-care (01) | DRG 190 ==
LOC: 3NENU 19:35 → EMEROO 19:35 → SUATTDRO 22:47 → 3NENU 10-23 00:05
PROVIDERS: ADMIT Hospitalist; ATTEND Internal Medicine

== ENCOUNTER 2017-07-17 04:55 | Inpatient (IN) ==
--- NOTE | 2017-07-17 09:49 | Internal Med History&Physical ---
Date of Encounter: 07/17/17 Time of Encounter: 09:42 Assessment and Plan (1) Community acquired pneumonia Current visit: No Status: Acute 77/female Was no [facility] emergency room for worsening shortness of breath. Underwent CT scan of the chest which shows left-sided multifocal pneumonia. Polyphonic wheezing associated with accessory muscles of respiration in use. CT chest: Left-sided multifocal pneumonia. Patient is allergic to multiple antibiotics. [facility] emergency room started patient on aztreonam/azithromycin. Blood cultures were drawn at [facility] emergency room. Plan: Admit as inpatient. Continue aztreonam/azithromycin. Intravenous Solu-Medrol 40 mg every 8. Inhaled bronchodilators with DuoNeb every 4 hours. Close monitoring of the respiratory status. If clinically worsens then we will get an ABG. Plan of care explained to the patient at length. Qualifiers: Laterality: left Lung location: unspecified part of lung Qualified Code(s ): J18.9 - Pneumonia, unspecified organism (2) Acute exacerbation of chronic obstructive airways disease Current visit: No Status: Resolved See above (3) CAD (coronary artery disease), [place] coronary artery Current visit: No Status: Chronic Patient is known to have a coronary artery disease. Patient is stable at this point from the CAD point of view. Patient does not have any active chest pain. Qualifiers: [place] vs. transplanted heart: [place] heart Associated angina: without angina Qualified Code(s): I25.10 - Atherosclerotic heart disease of [place] coronary artery without angina pectoris (4) Type 2 diabetes mellitus Current visit: No Status: Chronic Patient is known to have a diabetes mellitus. We will continue with subcutaneous insulin orders set. We will follow the recommendations from the order Set. Qualifiers: Diabetes mellitus complication status: with kidney complications Diabetes mellitus complication detail: with chronic kidney disease Diabetes mellitus retirement insulin use: unspecified terminal block assembler insulin use status Chronic kidney disease stage: stage 3 (moderate) Qualified Code(s): E11.22 - Type 2 diabetes mellitus with diabetic chronic kidney disease; N18.3 - Chronic kidney disease, stage 3 (moderate); N18.3 - Chronic kidney disease, stage 3 (moderate) (5) Hypokalemia Current visit: No Status: Resolved replaced. (6) Dyslipidemia Current visit: No Status: Chronic statin DVT prophylaxis: Medical decision making: This patient has a moderate to severe risk of worsening in spite of being on appropriate antibiotics due to the underlying chronic complexity of the comorbid condition Internal Medicine - H&P: HPI Chief complaint: Shortness of breath Admitted From: Intrahospital Transfer Plans for Post Hospital Care: Home History of present illness: Ms. Howard, she is a 77-year-old female, who was in a [facility] emergency room for worsening shortness of breath last night. Patient was seen couple of days back by her primary care doctor and primary care doctor started patient on oral antibiotics along with steroids and informed patient that if she does not get better then to follow-up with the emergency department. Patient slept well last night around 10 PM and superintendent terminal around 3 AM patient realizes that short of breath along with that she is coughing mucopurulent expectoration. This short of breath as not acute onset it was ongoing for past 2-3 days. But it worsened since last evening. Patient called her son for help. Patient was taken to the [facility] emergency room by her son for further evaluation. Patient was evaluated in the [facility]. Basic labs were drawn. X- ray chest was done. X-ray chest was suggestive of a multifocal pneumonia. She underwent CT scan of the chest [facility] and that confirmed the finding. Labs from [facility] as follows. WBC: 17.7, hemoglobin: 11.8, platelet: 148, sodium: 141, potassium: 3, BUN: 31, creatinine: 1.39, lactic acid was not elevated. patient was given aztreonam/azithromycin and was transferred to this hospital for further evaluation. Past Med Surg Social Fam HX - Past Medical History Medical history: arthritis, asthma, cancer, CHF, COPD, diabetes, hyperlipidemia , hypertension, kidney stones, malignancy, osteoporosis, peripheral artery disease, renal disease, venous stasis Psychiatric history: anxiety, depression - Past Surgical History Surgical History: appendectomy, cancer surgery, cholecystectomy, knee replacement - Social History Smoking Status: Former smoker Smokeless Tobacco Status: No Alcohol use: none Drug use: none - Family History Mother Adopted: No Family Member Ethnicity: Non- Living Status: Hx Family Cardiac Disorders: Yes (Open heart surgery, valve problem.) Hx Family Respiratory Disorders: No Hx Family Cancer: No Hx Family GI Disorders: No Hx Family Endocrine Disorder: No Hx Family Neuromuscular Disorders: No Hx Family Neurologic Disorders: No Hx Family HEENT Disorders: No Hx Family Autoimmune Disorders: No Internal Medicine - H&P: Meds Labetalol [Trandate] 200 mg PO BID 05/30/15 [History] cloNIDine HCl [CloNIDine HCl] 0.3 mg PO BID #180 tablet 10/11/16 [Rx] Oxygen 2 l NS AD 10/22/16 [History] hydrALAZINE [HydrALAZINE] 25 mg PO BID 10/22/16 [History] Allopurinol [Zyloprim 100 MG] 100 mg PO DAILY 01/16/17 [History] Albuterol Sulfate [Ventolin Hfa] 2 puff IH Q6H PRN 07/17/17 [History] Aspirin 81 mg PO BID 07/17/17 [History] Fluticasone Propionate Nasal [Flonase] 2 spr NS QAM 07/17/17 [History] Fluticasone/Salmeterol [Advair 250-50 Diskus] 1 puff IH BID 07/17/17 [History] Furosemide [Lasix] 20 mg PO DAILY 07/17/17 [History] Potassium Chloride [K-Tab ER] 40 meq PO DAILY 07/17/17 [History] PredniSONE [Deltasone] See Taper PO AD 07/17/17 [History] Sertraline [Zoloft] 100 mg PO DAILY 07/17/17 [History] Triamterene/HCTZ 37.5/25mg [Dyazide] 1 tab PO DAILY 07/17/17 [History] 3 Allergy/AdvReac Type Severity Reaction Status Date / Time Amoxicillin Allergy Rash Verified 07/17/17 09:42 atorvastatin [From Lipitor] Allergy See Verified 07/17/17 09:42 Comments cephalexin [From Keflex] Allergy See Verified 07/17/17 09:42 Comments iodine Allergy SHAKING Verified 07/17/17 09:42 levofloxacin [From Levaquin] Allergy LIP Verified 07/17/17 09:42 SWELLING sitagliptin [From Januvia] Allergy Difficulty Verified 07/17/17 09:42 Breathing sulfamethoxazole Allergy Rash Verified 07/17/17 09:42 [From Bactrim] trimethoprim [From Bactrim] Allergy Rash Verified 07/17/17 09:42 amlodipine [From Norvasc] AdvReac SEE COMMENT Verified 07/17/17 09:42 cefuroxime [From Ceftin] AdvReac MUSCLE Verified 07/17/17 09:42 CRAMPS fluoxetine [From Prozac] AdvReac SEE COMMENT Verified 07/17/17 09:42 metoprolol AdvReac Dizziness Verified 07/17/17 09:42 nifedipine AdvReac Headache Verified 07/17/17 09:42 Oxycodone AdvReac Headache Verified 07/12/17 23:21 Paroxetine [From Paxil] AdvReac CHILLS AND Verified 07/17/17 09:42 ITCH Prazosin AdvReac TACHYCARDIA Verified 07/17/17 09:42 Saxagliptin [From Onglyza] AdvReac UNKNOWN Verified 07/17/17 09:42 PER PT sertraline [From Zoloft] AdvReac Hallucinati Verified 07/17/17 02:25 ng simvastatin [From Zocor] AdvReac MUSCLE Verified 07/17/17 09:42 WEAKNESS All Systems PM: A 10-system review of systems was performed and is negative for pertinent findings except as documented above in the HPI. - Constitutional Constitutional: no chills, no fever(s), no night sweats - EENT Eyes: no change in vision, no discharge, no pain, no photophobia Ears: no ear discharge, no ear pain, no tinnitus Nose, mouth and throat: no dysphagia, no nasal discharge, no neck pain, no sore throat - Cardiovascular Cardiovascular ROS IM: no chest pain, no diaphoresis, no dyspnea, no lightheadedness, no palpitations, no syncope - Respiratory Respiratory: cough, dyspnea, stridor, excessive phlegm production, change in phlegm color, no wheezing - Gastrointestinal Gastrointestinal: no abdominal pain, no diarrhea, no hematemesis, no hematochezia, no melena, no nausea, no vomiting - Genitourinary Genitourinary: no change in urinary stream, no dysuria, no flank pain, no hematuria - Musculoskeletal Musculoskeletal ROS IM: no numbness, no tingling - Integumentary Integumentary IM: no rash, no unusual bruising - Neurological Neurological ROS: no confusion, no convulsions, no focal weakness, no numbness, no tingling, no tremor(s) - Hematologic/Lymphatic Hematologic/Lymphatic: no easy bruising - Constitutional Vitals: Temp Pulse Resp BP Pulse Ox 98.2 F 68 20 158/72 95 07/17/17 07:45 07/17/17 07:45 07/17/17 07:45 07/17/17 07:45 07/17/17 07:45 General appearance: Present: A&O X 3, pleasant, no acute distress, answers questions appropriately - Head Head exam: Present: atraumatic, normocephalic - Eye Eye exam: Present: PERRL, conjuntiva pink, sclera anicteric Pupils: Present: PERRL - Neck Neck exam general surgery: Present: supple, trachea midline. Absent: lymphadenopathy - Respiratory Respiratory exam: Present: accessory muscle use, CTAB, rhonchi, wheezes. Absent : rales - Cardiovascular Cardiovascular exam: Present: RRR, +S1, +S2. Absent: diastolic murmur, gallop, rubs, systolic murmur - GI/Abdominal GI/Abdominal exam: Present: normal bowel sounds, soft, no peritoneal signs. Absent: distended, tenderness - Extremities Exam Extremities exam: Present: warm, radial pulses palpable and symmetrical. Absent : calf tenderness, cyanotic, pedal edema - Neurological Exam Neurological exam: Present: CN II-XII intact, oriented X3, no focal deficits. Absent: pronater drift, facial droop, speech deficit - Skin Skin exam: Present: dry, intact
[2017-07-17] MEDS ORDERED: Naloxone 0.4 MG/ML INJ IVP PRN (09:51)
[2017-07-17] MEDS ORDERED: *HR* Morphine 2 MG/ML SYRINGE IVP PRN (10:54)
[2017-07-17] MEDS: *HR* Morphine 2 MG/ML SYRINGE IVP PRN (12:11)
[2017-07-17] MEDS: Ipratropium/Albuterol Neb 3 ML IH PRN ×3 (12:30→19:53)
[2017-07-17] MEDS: MethylPREDNISolone 40 MG/ML VIAL IVP SCH (16:36)
[2017-07-17] MEDS: Aztreonam 1,000 MG in Water for inj. (sterile) 10 ML IVP SCH (16:38)
--- NOTE | 2017-07-17 19:36 | Event Note ---
Date of Encounter: 07/17/17 Time of Encounter: 19:35 I was informed about elevated troponin in the morning. Noted that the next troponin is negative. THis elevated troponin is likely secondary to demand ischemia.
[2017-07-17] MEDS: *HR* Heparin 5,000 UNIT/ML VIAL SQ SCH (19:56)
[2017-07-17] MEDS: cloNIDine HCl 0.1 MG TABLET PO SCH (20:17)
[2017-07-17] MEDS: Aspirin 81 MG TAB.CHEW PO SCH (20:18)
[2017-07-17] MEDS: hydrALAZINE 25 MG TABLET PO SCH (20:18)
[2017-07-18] MEDS: Aztreonam 1,000 MG in Water for inj. (sterile) 10 ML IVP SCH ×4 (00:34→23:16)
[2017-07-18] MEDS: *HR* Heparin 5,000 UNIT/ML VIAL SQ SCH ×4 (00:36→23:30)
[2017-07-18] MEDS: MethylPREDNISolone 40 MG/ML VIAL IVP SCH ×4 (00:36→23:30)
[2017-07-18 03:54] LABS: Basophils % 0.1 %; Hemoglobin 11.3 g/dL (11.5-15.4); Immature Granulocytes % 1.1 % (0-4); Lymphocytes # 0.5 K/mcL (0.6-4.6); Lymphocytes % 3.5 %; Mean Corpuscular HGB Conc 30.5 g/dL (31.6-35.5); Mean Corpuscular Hemoglobin 26.8 pg (28.0-33.3); Mean Corpuscular Volume 87.7 fL (83.0-100.0); Mean Platelet Volume 10.9 fL (9.4-12.4); Monocytes # 0.2 K/mcL (0.0-1.3); Monocytes % 1.7 %; Neutrophils # 12.5 K/mcL (1.6-8.9); Platelet Count 117 K/mcL (140-400); Red Blood Count 4.22 M/mcL (3.82-4.97); Red Cell Distribution Width 15.7 % (11.5-14.5); Segmented Neutrophils % 93.6 %
[2017-07-18 03:56] LABS: INR 1.2; Prothrombin Time 12.5 Seconds (9.4-12.1)
[2017-07-18 03:59] LABS: Activated Partial Thrombo Time 25.6 Seconds (26.0-36.0)
[2017-07-18 04:09] LABS: Albumin 2.4 g/dL (3.5-5.0); Albumin/Globulin Ratio 0.7 (1.1-2.2); Bilirubin,Total 0.2 mg/dL (0.2-1.2); Calcium 8.1 mg/dL (8.6-10.8); Chol/HDL Ratio 4.1 (0-4.9); Globulin 3.6 g/dL (2.4-3.5); Potassium 3.6 mEq/L (3.5-4.5)
[2017-07-18] MEDS: Azithromycin 500 MG in D5% in Water 250 ML IVPB SCH (05:28)
[2017-07-18] MEDS: cloNIDine HCl 0.1 MG TABLET PO SCH ×2 (09:04→20:17)
[2017-07-18] MEDS: Furosemide 20 MG TABLET PO SCH ×2 (09:04→09:23)
[2017-07-18] MEDS: Aspirin 81 MG TAB.CHEW PO SCH ×2 (09:05→20:17)
[2017-07-18] MEDS: hydrALAZINE 25 MG TABLET PO SCH ×2 (09:05→20:17)
--- NOTE | 2017-07-18 09:48 | Internal Med Progress Note ---
Date of Encounter: 07/18/17 Time of Encounter: 09:46 - Assessment and plan (1) Community acquired pneumonia Current Visit: No Status: Acute Assessment and plan: Patient does have left lower lobe community-acquired pneumonia. Blood cultures negative so far. Aztreonam/Azithromycin: Day 2 We will continue present antibiotics. We will repeat labs tomorrow: Watch for renal function. Qualifiers: Laterality: left Lung location: unspecified part of lung Qualified Code(s ): J18.9 - Pneumonia, unspecified organism (2) Acute exacerbation of chronic obstructive airways disease Current Visit: No Status: Resolved Assessment and plan: Patient has acute exacerbation of her chronic obstructive disease likely secondary to the left lower lobe pneumonia. Patient is presently on antibiotics as mentioned above. Patient is receiving Solu-Medrol 40 mg every 8 hours. Patient is receiving inhaled bronchodilators every 4 hours. Plan: At this point we will add Tessalon Perles. We will continue present treatment. We will start tapering steroids from tomorrow if she has a clinical significant improvement. Plan discussed with the patient and she verbalized understanding. (3) CAD (coronary artery disease), [place] coronary artery Current Visit: No Status: Chronic Assessment and plan: Patient is known to have a coronary artery disease. Noted that her troponin was elevated. But the successive troponins were within normal limits. This elevated troponin is likely secondary to demand ischemia. Patient does not need cardiology evaluation at this point. Qualifiers: [place] vs. transplanted heart: [place] heart Associated angina: without angina Qualified Code(s): I25.10 - Atherosclerotic heart disease of [place] coronary artery without angina pectoris (4) Type 2 diabetes mellitus Current Visit: No Status: Chronic Assessment and plan: Patient is known to have type 2 diabetes mellitus. Presently we are monitoring her sugars with the subcut insulin order set protocol We will follow the recommendations from the protocol. Qualifiers: Diabetes mellitus complication status: with kidney complications Diabetes mellitus complication detail: with chronic kidney disease Diabetes mellitus chcf insulin use: unspecified keno terminal operator insulin use status Chronic kidney disease stage: stage 3 (moderate) Qualified Code(s): E11.22 - Type 2 diabetes mellitus with diabetic chronic kidney disease; N18.3 - Chronic kidney disease, stage 3 (moderate); N18.3 - Chronic kidney disease, stage 3 (moderate) (5) Hypokalemia Current Visit: No Status: Resolved Assessment and plan: Resolved Patient informed us that she does not take Lasix at home. We will discontinue Lasix. (6) Dyslipidemia Current Visit: No Status: Chronic (7) DVT prophylaxis Current Visit: Yes Status: Acute Assessment and plan: Heparin Medical decision making: This patient is a moderate to severe risk of worsening in spite of eating an appropriate medication due to the complex nature of her underlying comorbid conditions. - Subjective Interval history: Patient seen and examined. Chart reviewed. Patient is comfortably lying in bed. Patient feels a little better as compared to yesterday. Patient denies chest pain, abdominal pain, nausea, vomiting, dizziness and diarrhea. - Constitutional Vitals: Temp Pulse Resp BP Pulse Ox 98.2 F 86 19 163/86 96 07/18/17 07:00 07/18/17 07:00 07/18/17 07:00 07/18/17 07:00 07/18/17 09:15 General appearance: Present: A&O X 3, pleasant, no acute distress, answers questions appropriately - Head Head exam: Present: atraumatic, normocephalic - Eye Eye exam: Present: PERRL, conjuntiva pink, sclera anicteric Pupils: Present: PERRL - Neck Neck exam general surgery: Present: supple, trachea midline. Absent: lymphadenopathy - Respiratory Respiratory exam: Present: CTAB, wheezes. Absent: accessory muscle use, rales, rhonchi Additional comments: Patient is still using accessory muscles of respiration. - Cardiovascular Cardiovascular exam: Present: RRR, +S1, +S2. Absent: diastolic murmur, gallop, rubs, systolic murmur - GI/Abdominal GI/Abdominal exam: Present: normal bowel sounds, soft, no peritoneal signs. Absent: distended, tenderness - Extremities Exam Extremities exam: Present: warm, radial pulses palpable and symmetrical. Absent : calf tenderness, cyanotic, pedal edema - Neurological Exam Neurological exam: Present: CN II-XII intact, oriented X3, no focal deficits. Absent: pronater drift, facial droop, speech deficit - Skin Skin exam: Present: dry, intact Internal Medicine: Result - Labs CBC & Chem 7: 07/18/17 03:10 07/18/17 03:10 Labs: Short CBC 07/17/17 07/17/17 07/17/17 Range/Units 10:15 15:32 22:13 WBC (4.3-11.1) K/mcL RBC (3.82-4.97) M/mcL Hgb (11.5-15.4) g/dL Hct (35.3-44.9) % MCV (83.0-100.0) fL MCH (28.0-33.3) pg MCHC (31.6-35.5) g/dL RDW (11.5-14.5) % Plt Count (140-400) K/mcL MPV (9.4-12.4) fL Immature Gran % (0-4) % Seg Neutrophils % % Lymphocytes % % Monocytes % % Eosinophils % % Basophils % % Neutrophils # (1.6-8.9) K/mcL Lymphocytes # (0.6-4.6) K/mcL Monocytes # (0.0-1.3) K/mcL Eosinophils # (0.0-0.6) K/mcL Basophils # (0.0-0.2) K/mcL PT (9.4-12.1) Seconds INR APTT (26.0-36.0) Seconds Sodium (136-145) mEq/L Potassium (3.5-4.5) mEq/L Chloride (98-109) mEq/L Carbon Dioxide (19-29) mEq/L BUN (7-20) mg/dL Creatinine (0.57-1.11) mg/dL Est GFR ( Amer) (> 60) Est GFR (Non-Af Amer) (> 60) BUN/Creatinine Ratio (6-26) Glucose (70-99) mg/dL Calculated Osmolality (280-300) Calcium (8.6-10.8) mg/dL Phosphorus (2.3-4.7) mg/dL Magnesium (1.6-2.6) mg/dL Total Bilirubin (0.2-1.2) mg/dL AST (5-34) Units/L ALT (0-55) Units/L Alkaline Phosphatase (38-126) Units/L Troponin I 0.05 H* 0.03 0.02 (0-0.03) ng/mL B-Natriuretic Peptide (0-100) pg/mL Serum Total Protein (6.0-8.3) g/dL Albumin (3.5-5.0) g/dL Globulin (2.4-3.5) g/dL Albumin/Globulin Ratio (1.1-2.2) Triglycerides (< 150) mg/dL Cholesterol (< 200) mg/dL LDL Cholesterol, Calc (0-99) mg/dL VLDL Cholesterol, Calc (< 31) mg/dL HDL Cholesterol (40-59) mg/dL Cholesterol/HDL Ratio (0-4.9) 07/18/17 07/18/17 07/18/17 Range/Units 03:10 03:10 03:10 WBC 13.3 H (4.3-11.1) K/mcL RBC 4.22 (3.82-4.97) M/mcL Hgb 11.3 L (11.5-15.4) g/dL Hct 37.0 (35.3-44.9) % MCV 87.7 (83.0-100.0) fL MCH 26.8 L (28.0-33.3) pg MCHC 30.5 L (31.6-35.5) g/dL RDW 15.7 H (11.5-14.5) % Plt Count 117 L (140-400) K/mcL MPV 10.9 (9.4-12.4) fL Immature Gran % 1.1 (0-4) % Seg Neutrophils % 93.6 % Lymphocytes % 3.5 % Monocytes % 1.7 % Eosinophils % 0.0 % Basophils % 0.1 % Neutrophils # 12.5 H (1.6-8.9) K/mcL Lymphocytes # 0.5 L (0.6-4.6) K/mcL Monocytes # 0.2 (0.0-1.3) K/mcL Eosinophils # 0.0 (0.0-0.6) K/mcL Basophils # 0.0 (0.0-0.2) K/mcL PT 12.5 H (9.4-12.1) Seconds INR 1.2 APTT 25.6 L (26.0-36.0) Seconds Sodium 139 (136-145) mEq/L Potassium 3.6 (3.5-4.5) mEq/L Chloride 100 (98-109) mEq/L Carbon Dioxide 31 H (19-29) mEq/L BUN 35 H (7-20) mg/dL Creatinine 1.67 H (0.57-1.11) mg/dL Est GFR ( Amer) 36 L (> 60) Est GFR (Non-Af Amer) 30 L (> 60) BUN/Creatinine Ratio 21 (6-26) Glucose 397 H (70-99) mg/dL Calculated Osmolality 313 H (280-300) Calcium 8.1 L (8.6-10.8) mg/dL Phosphorus 4.0 (2.3-4.7) mg/dL Magnesium 2.0 (1.6-2.6) mg/dL Total Bilirubin 0.2 (0.2-1.2) mg/dL AST 9 (5-34) Units/L ALT 11 (0-55) Units/L Alkaline Phosphatase 117 (38-126) Units/L Troponin I (0-0.03) ng/mL B-Natriuretic Peptide (0-100) pg/mL Serum Total Protein 6.0 (6.0-8.3) g/dL Albumin 2.4 L D (3.5-5.0) g/dL Globulin 3.6 H (2.4-3.5) g/dL Albumin/Globulin Ratio 0.7 L (1.1-2.2) Triglycerides 160 H (< 150) mg/dL Cholesterol 248 H (< 200) mg/dL LDL Cholesterol, Calc 155 H (0-99) mg/dL VLDL Cholesterol, Calc 32 H (< 31) mg/dL HDL Cholesterol 61 H (40-59) mg/dL Cholesterol/HDL Ratio 4.1 (0-4.9) 07/18/17 Range/Units 03:10 WBC (4.3-11.1) K/mcL RBC (3.82-4.97) M/mcL Hgb (11.5-15.4) g/dL Hct (35.3-44.9) % MCV (83.0-100.0) fL MCH (28.0-33.3) pg MCHC (31.6-35.5) g/dL RDW (11.5-14.5) % Plt Count (140-400) K/mcL MPV (9.4-12.4) fL Immature Gran % (0-4) % Seg Neutrophils % % Lymphocytes % % Monocytes % % Eosinophils % % Basophils % % Neutrophils # (1.6-8.9) K/mcL Lymphocytes # (0.6-4.6) K/mcL Monocytes # (0.0-1.3) K/mcL Eosinophils # (0.0-0.6) K/mcL Basophils # (0.0-0.2) K/mcL PT (9.4-12.1) Seconds INR APTT (26.0-36.0) Seconds Sodium (136-145) mEq/L Potassium (3.5-4.5) mEq/L Chloride (98-109) mEq/L Carbon Dioxide (19-29) mEq/L BUN (7-20) mg/dL Creatinine (0.57-1.11) mg/dL Est GFR ( Amer) (> 60) Est GFR (Non-Af Amer) (> 60) BUN/Creatinine Ratio (6-26) Glucose (70-99) mg/dL Calculated Osmolality (280-300) Calcium (8.6-10.8) mg/dL Phosphorus (2.3-4.7) mg/dL Magnesium (1.6-2.6) mg/dL Total Bilirubin (0.2-1.2) mg/dL AST (5-34) Units/L ALT (0-55) Units/L Alkaline Phosphatase (38-126) Units/L Troponin I (0-0.03) ng/mL B-Natriuretic Peptide 265 H (0-100) pg/mL Serum Total Protein (6.0-8.3) g/dL Albumin (3.5-5.0) g/dL Globulin (2.4-3.5) g/dL Albumin/Globulin Ratio (1.1-2.2) Triglycerides (< 150) mg/dL Cholesterol (< 200) mg/dL LDL Cholesterol, Calc (0-99) mg/dL VLDL Cholesterol, Calc (< 31) mg/dL HDL Cholesterol (40-59) mg/dL Cholesterol/HDL Ratio (0-4.9) BMP 07/18/17 03:10 Sodium 139 Potassium 3.6 Chloride 100 Carbon Dioxide 31 H BUN 35 H Creatinine 1.67 H Glucose 397 H Calcium 8.1 L Cardiac Enzymes 07/17/17 07/17/17 07/17/17 Range/Units 10:15 15:32 22:13 Troponin I 0.05 H* 0.03 0.02 (0-0.03) ng/mL Liver Function 07/18/17 Range/Units 03:10 Total Bilirubin 0.2 (0.2-1.2) mg/dL AST 9 (5-34) Units/L ALT 11 (0-55) Units/L Alkaline Phosphatase 117 (38-126) Units/L Albumin 2.4 L D (3.5-5.0) g/dL - ABG Interpretation ABG results: PT/INR, D-dimer PT 12.5 Seconds (9.4-12.1) H 07/18/17 03:10 Consult Discharge Plan - Plan Referrals: Gisselle Jeffery, HOSTLER HELPER [Primary Care Provider] -
[2017-07-18] MEDS: *HR* Morphine 2 MG/ML SYRINGE IVP PRN (10:22)
[2017-07-18] MEDS: Benzonatate 100 MG CAPSULE PO PRN (10:23)
[2017-07-18] MEDS: Ipratropium/Albuterol Neb 3 ML IH PRN ×3 (11:12→19:34)
[2017-07-19] MEDS: Azithromycin 500 MG in D5% in Water 250 ML IVPB SCH (03:51)
[2017-07-19] MEDS: Ipratropium/Albuterol Neb 3 ML IH PRN ×3 (03:58→19:59)
[2017-07-19] MEDS: Benzonatate 100 MG CAPSULE PO PRN (04:23)
[2017-07-19 04:56] LABS: Albumin 2.5 g/dL (3.5-5.0); Albumin/Globulin Ratio 0.7 (1.1-2.2); Bilirubin,Total 0.2 mg/dL (0.2-1.2); Calcium 8.5 mg/dL (8.6-10.8); Globulin 3.8 g/dL (2.4-3.5); Potassium 3.7 mEq/L (3.5-4.5); Total Protein 6.3 g/dL (6.0-8.3)
[2017-07-19 05:01] LABS: Basophils % 0.3 %; Hemoglobin 10.9 g/dL (11.5-15.4); Immature Granulocytes % 2.7 % (0-4); Lymphocytes # 0.6 K/mcL (0.6-4.6); Mean Corpuscular HGB Conc 30.3 g/dL (31.6-35.5); Mean Corpuscular Hemoglobin 26.2 pg (28.0-33.3); Mean Corpuscular Volume 86.5 fL (83.0-100.0); Mean Platelet Volume 11.4 fL (9.4-12.4); Monocytes # 0.5 K/mcL (0.0-1.3); Monocytes % 3.4 %; Neutrophils # 14.2 K/mcL (1.6-8.9); Platelet Count 148 K/mcL (140-400); Red Blood Count 4.16 M/mcL (3.82-4.97); Red Cell Distribution Width 15.4 % (11.5-14.5); Segmented Neutrophils % 89.6 %
[2017-07-19] MEDS: *HR* Heparin 5,000 UNIT/ML VIAL SQ SCH ×2 (07:43→16:46)
[2017-07-19] MEDS: hydrALAZINE 25 MG TABLET PO SCH ×2 (07:45→22:23)
[2017-07-19] MEDS: cloNIDine HCl 0.1 MG TABLET PO SCH ×2 (07:45→22:23)
[2017-07-19] MEDS: Aztreonam 1,000 MG in Water for inj. (sterile) 10 ML IVP SCH ×2 (07:46→22:23)
[2017-07-19] MEDS: Aspirin 81 MG TAB.CHEW PO SCH ×2 (07:46→22:23)
[2017-07-19] MEDS: MethylPREDNISolone 40 MG/ML VIAL IVP SCH ×2 (07:49→16:46)
[2017-07-19] MEDS: ALPRAZolam 0.25 MG TABLET PO PRN (09:25)
--- NOTE | 2017-07-19 10:11 | Internal Med Progress Note ---
Date of Encounter: 07/19/17 Time of Encounter: 10:07 - Assessment and plan (1) Community acquired pneumonia Current Visit: No Status: Acute Assessment and plan: Patient does have left lower lobe community-acquired pneumonia. Blood cultures negative so far. Aztreonam/Azithromycin: Day 2 We will continue present antibiotics. We will repeat labs tomorrow: Watch for renal function. 07/19/2017. Left lower lobe community-acquired pneumonia. Blood cultures drawn at the referring facility did not grow any organism. Aztreonam/azithromycin: Day 3 We will continue present antibiotics. Renal function stable. I explained at length to patient and her daughter regarding nature of illness. I kaden that illustrated diagrams on the board and explained about COPD. Patient appreciated efforts to explain her in detail Qualifiers: Laterality: left Lung location: unspecified part of lung Qualified Code(s ): J18.9 - Pneumonia, unspecified organism (2) Acute exacerbation of chronic obstructive airways disease Current Visit: No Status: Resolved Assessment and plan: Patient has acute exacerbation of her chronic obstructive disease likely secondary to the left lower lobe pneumonia. Patient is presently on antibiotics as mentioned above. Patient is receiving Solu-Medrol 40 mg every 8 hours. Patient is receiving inhaled bronchodilators every 4 hours. Plan: At this point we will add Tessalon Perles. We will continue present treatment. We will start tapering steroids from tomorrow if she has a clinical significant improvement. Plan discussed with the patient and she verbalized understanding. 07/19/2017. Day 2 of hospitalization. Presently on antibiotics/steroids/bronchodilators. Patient's cough is much better as compared to yesterday. She still has persistent wheezing and using accessory muscles of respiration. We will continue same dose of steroid today. We will reassess her tomorrow and then we will plan regarding tapering of steroids. Plan discussed with the patient/her daughter. The verbalize understanding (3) CAD (coronary artery disease), [place] coronary artery Current Visit: No Status: Chronic Assessment and plan: Patient is known to have a coronary artery disease. Noted that her troponin was elevated. But the successive troponins were within normal limits. This elevated troponin is likely secondary to demand ischemia. Patient does not need cardiology evaluation at this point. 07/19/2017. We will get echocardiogram done. Qualifiers: [place] vs. transplanted heart: [place] heart Associated angina: without angina Qualified Code(s): I25.10 - Atherosclerotic heart disease of [place] coronary artery without angina pectoris (4) Type 2 diabetes mellitus Current Visit: No Status: Chronic Assessment and plan: Patient is known to have type 2 diabetes mellitus. Presently we are monitoring her sugars with the subcut insulin order set protocol We will follow the recommendations from the protocol. Qualifiers: Diabetes mellitus complication status: with kidney complications Diabetes mellitus complication detail: with chronic kidney disease Diabetes mellitus mcc insulin use: unspecified mcc insulin use status Chronic kidney disease stage: stage 3 (moderate) Qualified Code(s): E11.22 - Type 2 diabetes mellitus with diabetic chronic kidney disease; N18.3 - Chronic kidney disease, stage 3 (moderate); N18.3 - Chronic kidney disease, stage 3 (moderate) (5) Hypokalemia Current Visit: No Status: Resolved Assessment and plan: Resolved Patient informed us that she does not take Lasix at home. We will discontinue Lasix. 07/19/2017 Potassium: 3.7 Renal function stable (6) Dyslipidemia Current Visit: No Status: Chronic (7) DVT prophylaxis Current Visit: Yes Status: Acute Assessment and plan: Heparin Medical decision making: This patient is a moderate to severe risk of worsening in spite of eating an appropriate medication due to the complex nature of her underlying comorbid conditions. - Subjective Interval history: Patient seen and examined. Chart reviewed. Patient is comfortably lying in bed. Patient feels a little better as compared to yesterday. Patient denies chest pain, abdominal pain, nausea, vomiting, dizziness and diarrhea. 07/19/2017. Patient seen and examined. Chart reviewed. Patient is comfortably sitting in chair. Patient's family at bedside. Patient still complains of shortness of breath. Patient denies chest pain, nausea, vomiting, dizziness - Constitutional Vitals: Temp Pulse Resp BP Pulse Ox 97.4 F L 96 16 170/92 94 07/19/17 06:54 07/19/17 06:54 07/19/17 06:54 07/19/17 06:54 07/19/17 06:54 General appearance: Present: A&O X 3, pleasant, no acute distress, answers questions appropriately - Head Head exam: Present: atraumatic, normocephalic - Eye Eye exam: Present: PERRL, conjuntiva pink, sclera anicteric Pupils: Present: PERRL - Neck Neck exam general surgery: Present: supple, trachea midline. Absent: lymphadenopathy - Respiratory Respiratory exam: Present: CTAB. Absent: accessory muscle use, rales, rhonchi, wheezes - Cardiovascular Cardiovascular exam: Present: RRR, +S1, +S2. Absent: diastolic murmur, gallop, rubs, systolic murmur - GI/Abdominal GI/Abdominal exam: Present: normal bowel sounds, soft, no peritoneal signs. Absent: distended, tenderness - Extremities Exam Extremities exam: Present: warm, radial pulses palpable and symmetrical. Absent : calf tenderness, cyanotic, pedal edema - Neurological Exam Neurological exam: Present: CN II-XII intact, oriented X3, no focal deficits. Absent: pronater drift, facial droop, speech deficit - Skin Skin exam: Present: dry, intact Internal Medicine: Result - Labs CBC & Chem 7: 07/19/17 04:09 07/19/17 04:09 Labs: Short CBC 07/19/17 Range/Units 04:09 WBC 15.8 H (4.3-11.1) K/mcL Hgb 10.9 L (11.5-15.4) g/dL Hct 36.0 (35.3-44.9) % Plt Count 148 (140-400) K/mcL Neutrophils # 14.2 H (1.6-8.9) K/mcL BMP 07/19/17 04:09 Sodium 138 Potassium 3.7 Chloride 97 L Carbon Dioxide 28 BUN 42 H Creatinine 1.63 H Glucose 474 H Calcium 8.5 L Liver Function 07/19/17 Range/Units 04:09 Total Bilirubin 0.2 (0.2-1.2) mg/dL AST 9 (5-34) Units/L ALT 12 (0-55) Units/L Alkaline Phosphatase 123 (38-126) Units/L Albumin 2.5 L (3.5-5.0) g/dL - ABG Interpretation ABG results: PT/INR, D-dimer PT 12.5 Seconds (9.4-12.1) H 07/18/17 03:10 Consult Discharge Plan - Plan Additional Instructions: pcp requested Referrals: Gisselle Jeffery, BUSINESS EXCELLENCE LEADER [Primary Care Provider] -
[2017-07-20] MEDS: MethylPREDNISolone 40 MG/ML VIAL IVP SCH ×4 (00:17→23:52)
[2017-07-20] MEDS: *HR* Heparin 5,000 UNIT/ML VIAL SQ SCH ×4 (00:17→23:50)
[2017-07-20 03:04] LABS: Hematocrit 34.1 % (35.3-44.9); Hemoglobin 10.7 g/dL (11.5-15.4); Immature Platelets 5.6 % (1.1-6.1); Mean Corpuscular HGB Conc 31.4 g/dL (31.6-35.5); Mean Corpuscular Volume 86.1 fL (83.0-100.0); Mean Platelet Volume 11.5 fL (9.4-12.4); Nucleated Red Blood Cells 0.1 /100 WBC (0); Platelet Count 149 K/mcL (140-400); Red Blood Count 3.96 M/mcL (3.82-4.97); Red Cell Distribution Width 15.4 % (11.5-14.5)
[2017-07-20 03:26] LABS: Lymphocytes # 0.9 K/mcL (0.6-4.6); Monocytes # 0.3 K/mcL (0.0-1.3); Platelet Estimate Normal (Normal); Reactive Lymphocytes Present (Not Present)
[2017-07-20 03:30] LABS: Albumin 2.5 g/dL (3.5-5.0); Albumin/Globulin Ratio 0.8 (1.1-2.2); Bilirubin,Total 0.2 mg/dL (0.2-1.2); Calcium 8.9 mg/dL (8.6-10.8); Globulin 3.3 g/dL (2.4-3.5); Potassium 4.3 mEq/L (3.5-4.5); Total Protein 5.8 g/dL (6.0-8.3)
[2017-07-20] MEDS: Azithromycin 500 MG in D5% in Water 250 ML IVPB SCH (03:56)
[2017-07-20] MEDS: Ipratropium/Albuterol Neb 3 ML IH PRN ×5 (04:26→20:11)
[2017-07-20] MEDS: cloNIDine HCl 0.1 MG TABLET PO SCH ×2 (10:09→22:09)
[2017-07-20] MEDS: hydrALAZINE 25 MG TABLET PO SCH ×2 (10:10→22:09)
[2017-07-20] MEDS: Aspirin 81 MG TAB.CHEW PO SCH ×2 (10:10→22:09)
[2017-07-20] MEDS: Aztreonam 1,000 MG in Water for inj. (sterile) 10 ML IVP SCH ×2 (10:11→18:39)
--- NOTE | 2017-07-20 13:53 | Internal Med Progress Note ---
Date of Encounter: 07/20/17 Time of Encounter: 13:51 - Assessment and plan (1) Community acquired pneumonia Current Visit: No Status: Acute Assessment and plan: Patient does have left lower lobe community-acquired pneumonia. Blood cultures negative so far. Aztreonam/Azithromycin: Day 2 We will continue present antibiotics. We will repeat labs tomorrow: Watch for renal function. 07/19/2017. Left lower lobe community-acquired pneumonia. Blood cultures drawn at the referring facility did not grow any organism. Aztreonam/azithromycin: Day 3 We will continue present antibiotics. Renal function stable. I explained at length to patient and her daughter regarding nature of illness. I kaden that illustrated diagrams on the board and explained about COPD. Patient appreciated efforts to explain her in detail 07/20/2017 Left lower lobe community-acquired pneumonia. Blood cultures negative so far. We will discontinue azithromycin as she received 3 days of the same. We will continue aztreonam for another 2 days. Noted that she has mild elevated in creatinine. Echocardiogram: Ejection fraction 55%. No regional wall motion abnormality. Noted that patient's blood pressure was mildly elevated this morning and intravenous hydralazine was given. Home blood pressure medication: Clonidine 0.3 mg twice a day/hydralazine 25 mg twice a day/labetalol 200 mg twice a day Reason for elevated blood pressures can be multifactorial: Plan: Will continue aztreonam for now. Repeat labs tomorrow. If renal function persistently worsened then we might need help from nephrology. Elevated blood pressure likely secondary to the anxiety. We will monitor her very closely. I had a long discussion with the patient's family/daughter this morning. Along with me RN Jose was present. Explained patient was daughter at length regarding the diagnosis and management plan. All questions answered. Qualifiers: Laterality: left Lung location: unspecified part of lung Qualified Code(s ): J18.9 - Pneumonia, unspecified organism (2) Acute exacerbation of chronic obstructive airways disease Current Visit: No Status: Resolved Assessment and plan: Patient has acute exacerbation of her chronic obstructive disease likely secondary to the left lower lobe pneumonia. Patient is presently on antibiotics as mentioned above. Patient is receiving Solu-Medrol 40 mg every 8 hours. Patient is receiving inhaled bronchodilators every 4 hours. Plan: At this point we will add Tessalon Perles. We will continue present treatment. We will start tapering steroids from tomorrow if she has a clinical significant improvement. Plan discussed with the patient and she verbalized understanding. 07/19/2017. Day 2 of hospitalization. Presently on antibiotics/steroids/bronchodilators. Patient's cough is much better as compared to yesterday. She still has persistent wheezing and using accessory muscles of respiration. We will continue same dose of steroid today. We will reassess her tomorrow and then we will plan regarding tapering of steroids. Plan discussed with the patient/her daughter. The verbalize understanding 07/20/2017 Date 3 of hospitalization. Presently on aztreonam/Solu-Medrol/bronchodilators. Patient claims that her cough/shortness of breath is much better as compared to yesterday. We will continue present treatment for now. (3) CAD (coronary artery disease), [place] coronary artery Current Visit: No Status: Chronic Assessment and plan: Patient is known to have a coronary artery disease. Noted that her troponin was elevated. But the successive troponins were within normal limits. This elevated troponin is likely secondary to demand ischemia. Patient does not need cardiology evaluation at this point. 07/19/2017. We will get echocardiogram done. 07/20/2017 See above echocardiogram result Qualifiers: [place] vs. transplanted heart: [place] heart Associated angina: without angina Qualified Code(s): I25.10 - Atherosclerotic heart disease of [place] coronary artery without angina pectoris (4) Type 2 diabetes mellitus Current Visit: No Status: Chronic Assessment and plan: Patient is known to have type 2 diabetes mellitus. Presently we are monitoring her sugars with the subcut insulin order set protocol We will follow the recommendations from the protocol. Qualifiers: Diabetes mellitus complication status: with kidney complications Diabetes mellitus complication detail: with chronic kidney disease Diabetes mellitus adjunct faculty for medical terminology insulin use: unspecified adjunct faculty for medical terminology insulin use status Chronic kidney disease stage: stage 3 (moderate) Qualified Code(s): E11.22 - Type 2 diabetes mellitus with diabetic chronic kidney disease; N18.3 - Chronic kidney disease, stage 3 (moderate); N18.3 - Chronic kidney disease, stage 3 (moderate) (5) Hypokalemia Current Visit: No Status: Resolved Assessment and plan: Resolved Patient informed us that she does not take Lasix at home. We will discontinue Lasix. 07/19/2017 Potassium: 3.7 Renal function stable (6) Dyslipidemia Current Visit: No Status: Chronic (7) DVT prophylaxis Current Visit: Yes Status: Acute Assessment and plan: Heparin Medical decision making: This patient is a moderate to severe risk of worsening in spite of eating an appropriate medication due to the complex nature of her underlying comorbid conditions. - Subjective Interval history: Patient seen and examined. Chart reviewed. Patient is comfortably lying in bed. Patient feels a little better as compared to yesterday. Patient denies chest pain, abdominal pain, nausea, vomiting, dizziness and diarrhea. 07/19/2017. Patient seen and examined. Chart reviewed. Patient is comfortably sitting in chair. Patient's family at bedside. Patient still complains of shortness of breath. Patient denies chest pain, nausea, vomiting, dizziness 07/20/2017 Patient seen and examined. Chart reviewed. Patient is comfortably lying on the bed. Apparently patient was agitated last night. Patient's daughter at bedside. Patient claims that she is feeling better in terms of her breathing and cough. Patient has a lot of anxiety issues. - Constitutional Vitals: Temp Pulse Resp BP Pulse Ox 98.2 F 74 17 184/98 99 07/20/17 11:29 07/20/17 11:29 07/20/17 11:29 07/20/17 11:29 07/20/17 11:29 General appearance: Present: A&O X 3, pleasant, no acute distress, answers questions appropriately - Head Head exam: Present: atraumatic, normocephalic - Eye Eye exam: Present: PERRL, conjuntiva pink, sclera anicteric Pupils: Present: PERRL - Neck Neck exam general surgery: Present: supple, trachea midline. Absent: lymphadenopathy - Respiratory Respiratory exam: Present: CTAB. Absent: accessory muscle use, rales, rhonchi, wheezes - Cardiovascular Cardiovascular exam: Present: RRR, +S1, +S2. Absent: diastolic murmur, gallop, rubs, systolic murmur - GI/Abdominal GI/Abdominal exam: Present: normal bowel sounds, soft, no peritoneal signs. Absent: distended, tenderness - Extremities Exam Extremities exam: Present: warm, radial pulses palpable and symmetrical. Absent : calf tenderness, cyanotic, pedal edema - Neurological Exam Neurological exam: Present: CN II-XII intact, oriented X3, no focal deficits. Absent: pronater drift, facial droop, speech deficit - Skin Skin exam: Present: dry, intact Internal Medicine: Result - Labs CBC & Chem 7: 07/20/17 02:40 07/20/17 02:40 Labs: Short CBC 07/20/17 Range/Units 02:40 WBC 14.1 H (4.3-11.1) K/mcL Hgb 10.7 L (11.5-15.4) g/dL Hct 34.1 L (35.3-44.9) % Plt Count 149 (140-400) K/mcL Neutrophils # 13.0 H (1.6-8.9) K/mcL BMP 07/20/17 02:40 Sodium 137 Potassium 4.3 Chloride 98 Carbon Dioxide 27 BUN 48 H Creatinine 1.84 H Glucose 423 H Calcium 8.9 Liver Function 07/20/17 Range/Units 02:40 Total Bilirubin 0.2 (0.2-1.2) mg/dL AST 8 (5-34) Units/L ALT 12 (0-55) Units/L Alkaline Phosphatase 111 (38-126) Units/L Albumin 2.5 L (3.5-5.0) g/dL - ABG Interpretation ABG results: PT/INR, D-dimer PT 12.5 Seconds (9.4-12.1) H 07/18/17 03:10 - Impressions Impressions Echocardiogram 07/19/17 09:55 Impressions: LVEF 60%. Normal LV chamber size and function. Mild concentric left ventricular hypertrophy. Mild left ventricular diastolic dysfunction. Normal right ventricular structure and function. Mild aortic stenosis. Mean gradient 14 mmHg. Unable to estimate RVSP due to lack of TR jet. Left Ventricular Wall Motion: Rest Echo Findings All wall segments showed normal motion. Findings: Study Quality * Technically adequate exam. ECG Findings * Normal sinus rhythm. Left Ventricle * LVEF 60%. * Normal LV chamber size and function. * Mild concentric left ventricular hypertrophy. * Mild left ventricular diastolic dysfunction. Right Ventricle * Normal right ventricular structure and function. Left Atrium * Mildly dilated left atrium. Right Atrium * Mildly dilated right atrium. Interatrial Septum * Interatrial septum not well evaluated. Aortic Valve * Trileaflet aortic valve. * Mildly calcified aortic valve leaflets. * No aortic regurgitation. * Mild aortic stenosis. Mitral Valve * Mild to moderate posterior mitral annular calcification. * Mildly calcified anterior mitral valve leaflet. * Trace mitral regurgitation. * No mitral stenosis. Tricuspid Valve * Normal tricuspid valve structure and function. * No tricuspid regurgitation. * Unable to estimate RVSP due to lack of TR jet. Pulmonic Valve * Normal pulmonic valve structure and function. * No pulmonic regurgitation. Aorta * Normally sized aortic root. Pericardium * The pericardium appears normal. IVC * Normal IVC dimensions and inspiratory collapse. Pulmonary Artery * Normal visualized portions of the main pulmonary artery. Consult Discharge Plan - Plan Additional Instructions: pcp requested Referrals: Gisselle Jeffery, ASSISTANT PROFESSOR OF CHEMISTRY [Primary Care Provider] -
[2017-07-20] MEDS ORDERED: Aztreonam 1,000 MG in Water for inj. (sterile) 10 ML IVP SCH (16:00)
[2017-07-21 02:45] LABS: Hematocrit 35.8 % (35.3-44.9); Hemoglobin 11.2 g/dL (11.5-15.4); Mean Corpuscular HGB Conc 31.3 g/dL (31.6-35.5); Mean Corpuscular Hemoglobin 26.5 pg (28.0-33.3); Mean Corpuscular Volume 84.6 fL (83.0-100.0); Mean Platelet Volume 10.9 fL (9.4-12.4); Platelet Count 158 K/mcL (140-400); Red Blood Count 4.23 M/mcL (3.82-4.97); Red Cell Distribution Width 15.3 % (11.5-14.5)
[2017-07-21 02:57] LABS: Albumin 2.5 g/dL (3.5-5.0); Albumin/Globulin Ratio 0.7 (1.1-2.2); Bilirubin,Total 0.4 mg/dL (0.2-1.2); Calcium 8.6 mg/dL (8.6-10.8); Globulin 3.6 g/dL (2.4-3.5); Potassium 4.9 mEq/L (3.5-4.5); Total Protein 6.1 g/dL (6.0-8.3)
[2017-07-21 03:08] LABS: Lymphocytes # 1.6 K/mcL (0.6-4.6); Monocytes # 0.3 K/mcL (0.0-1.3); Neutrophils # 13.6 K/mcL (1.6-8.9); Platelet Estimate Normal (Normal)
[2017-07-21] MEDS: Aztreonam 1,000 MG in Water for inj. (sterile) 10 ML IVP SCH ×3 (03:17→18:25)
[2017-07-21] MEDS ORDERED: hydrALAZINE 10 MG TABLET PO PRN (05:05)
[2017-07-21] MEDS: cloNIDine HCl 0.1 MG TABLET PO SCH ×2 (07:20→20:43)
[2017-07-21] MEDS: Aspirin 81 MG TAB.CHEW PO SCH ×2 (07:20→20:43)
[2017-07-21] MEDS: hydrALAZINE 25 MG TABLET PO SCH ×2 (07:21→17:08)
[2017-07-21] MEDS: *HR* Heparin 5,000 UNIT/ML VIAL SQ SCH ×2 (07:21→17:08)
[2017-07-21] MEDS: MethylPREDNISolone 40 MG/ML VIAL IVP SCH (07:21)
[2017-07-21] MEDS ORDERED: D5% in Water 1,000 ML IVC PRN (09:53)
[2017-07-21] MEDS ORDERED: *HR* Dextrose 50 % in Water (Syg) 50 ML SYRINGE IVP PRN (09:53)
[2017-07-21] MEDS ORDERED: Dextrose Gel 15 GM PO PRN ×2 (09:53)
[2017-07-21] MEDS ORDERED: Insulin DETEMIR 100 UNIT/ML X5UNITS SQ ONE (09:57)
--- NOTE | 2017-07-21 10:01 | Nephrology Consult Note ---
Date of Encounter: 07/21/17 Time of Encounter: 09:59 Assessment and Plan (1) Benign hypertension with chronic kidney disease, stage III Current Visit: Yes Status: Acute Patient has a clinical picture of acute kidney injury superimposed on stage III chronic kidney disease in the setting of poorly controlled hypertension. She is currently admitted to the hospital for a COPD exacerbation. Current antihypertensive regimen includes clonidine, labetalol, and hydralazine. We will make some additional changes to her blood pressure regimen and try and improve her blood pressure control. She does have multiple drug allergies and this will limit our options. (2) Acute kidney injury superimposed on CKD Current Visit: No Status: Acute (3) Acute exacerbation of chronic obstructive airways disease Current Visit: No Status: Resolved History of Present Illness - History of Present Illness This is a 77-year-old female admitted with a COPD exacerbation. During the patient's hospitalization as she has exhibited difficult control hypertension. She has a long-standing history of hypertension. She was last seen in the office back in March at which time her blood pressure was 140/72. Patient also has a history of stage III chronic kidney disease in the setting of hypertension and diabetes. Baseline creatinine is 1.2-1.5. Here in the hospital her creatinine has gone up to 1.85. Patient's main complaint is that of wheezing, shortness of breath, cough and sputum production. She is currently being treated for COPD exacerbation with intravenous steroids as well as antibiotics. Past Med Surg Social Fam HX - Past Medical History Medical history: arthritis, asthma, cancer, CHF, COPD, diabetes, hyperlipidemia , hypertension, kidney stones, malignancy, osteoporosis, peripheral artery disease, renal disease, venous stasis Psychiatric history: anxiety, depression - Past Surgical History Surgical History: appendectomy, cancer surgery, cholecystectomy, knee replacement - Social History Smoking Status: Former smoker Smokeless Tobacco Status: No Alcohol use: none Drug use: none - Family History Mother Adopted: No Family Member Ethnicity: Non- Living Status: Hx Family Cardiac Disorders: Yes (Open heart surgery, valve problem.) Hx Family Respiratory Disorders: No Hx Family Cancer: No Hx Family GI Disorders: No Hx Family Endocrine Disorder: No Hx Family Neuromuscular Disorders: No Hx Family Neurologic Disorders: No Hx Family HEENT Disorders: No Hx Family Autoimmune Disorders: No Medications and Allergies Labetalol [Trandate] 200 mg PO BID 05/30/15 [History] cloNIDine HCl [CloNIDine HCl] 0.3 mg PO BID #180 tablet 10/11/16 [Rx] Oxygen 2 l NS AD 10/22/16 [History] hydrALAZINE [HydrALAZINE] 25 mg PO BID 10/22/16 [History] Allopurinol [Zyloprim 100 MG] 100 mg PO DAILY 01/16/17 [History] Albuterol Sulfate [Ventolin Hfa] 2 puff IH Q6H PRN 07/17/17 [History] Aspirin 81 mg PO BID 07/17/17 [History] Fluticasone Propionate Nasal [Flonase] 2 spr NS QAM 07/17/17 [History] Fluticasone/Salmeterol [Advair 250-50 Diskus] 1 puff IH BID 07/17/17 [History] Furosemide [Lasix] 20 mg PO DAILY 07/17/17 [History] Potassium Chloride [K-Tab ER] 40 meq PO DAILY 07/17/17 [History] PredniSONE [Deltasone] See Taper PO AD 07/17/17 [History] Sertraline [Zoloft] 100 mg PO DAILY 07/17/17 [History] Triamterene/HCTZ 37.5/25mg [Dyazide] 1 tab PO DAILY 07/17/17 [History] 3 Allergy/AdvReac Type Severity Reaction Status Date / Time Amoxicillin Allergy Rash Verified 07/17/17 09:42 atorvastatin [From Lipitor] Allergy See Verified 07/17/17 09:42 Comments cephalexin [From Keflex] Allergy See Verified 07/17/17 09:42 Comments iodine Allergy SHAKING Verified 07/17/17 09:42 levofloxacin [From Levaquin] Allergy LIP Verified 07/17/17 09:42 SWELLING sitagliptin [From Januvia] Allergy Difficulty Verified 07/17/17 09:42 Breathing sulfamethoxazole Allergy Rash Verified 07/17/17 09:42 [From Bactrim] trimethoprim [From Bactrim] Allergy Rash Verified 07/17/17 09:42 amlodipine [From Norvasc] AdvReac SEE COMMENT Verified 07/17/17 09:42 cefuroxime [From Ceftin] AdvReac MUSCLE Verified 07/17/17 09:42 CRAMPS fluoxetine [From Prozac] AdvReac SEE COMMENT Verified 07/17/17 09:42 metoprolol AdvReac Dizziness Verified 07/17/17 09:42 nifedipine AdvReac Headache Verified 07/17/17 09:42 Oxycodone AdvReac Headache Verified 07/12/17 23:21 Paroxetine [From Paxil] AdvReac CHILLS AND Verified 07/17/17 09:42 ITCH Prazosin AdvReac TACHYCARDIA Verified 07/17/17 09:42 Saxagliptin [From Onglyza] AdvReac UNKNOWN Verified 07/17/17 09:42 PER PT sertraline [From Zoloft] AdvReac Hallucinati Verified 07/17/17 02:25 ng simvastatin [From Zocor] AdvReac MUSCLE Verified 07/17/17 09:42 WEAKNESS Review of Systems Constitutional: as per HPI Eyes: bilateral: blurred vision (patient denies), diplopia (patient denies) Nose, mouth and throat: no dizziness, no headache(s) Cardiovascular: dyspnea, dyspnea on exertion Respiratory: cough, dyspnea, dyspnea on exertion, chest congestion, excessive phlegm production Gastrointestinal: no abdominal pain, no change in bowel habits Menstruation: as per HPI Musculoskeletal: no muscle weakness, no numbness Integumentary: no hirsutism, no striae Neurological: as per HPI Psychiatric: no depression, no difficulty concentrating Endocrine: as per HPI Hematologic/Lymphatic: no easy bruising, no lymphadenopathy Exam - Vital Signs Vital signs: Initial Vital Signs Temp Pulse Resp BP Pulse Ox 98.2 F 68 20 158/72 95 07/17/17 07:45 07/17/17 07:45 07/17/17 07:45 07/17/17 07:45 07/17/17 07:45 Vital Signs - Last 8 Hours Temp Pulse Resp BP Pulse Ox 07/21/17 07:00 64 18 142/80 97 07/21/17 04:52 97.9 F 62 15 190/64 98 Intake and Output 07/20/17 07/21/17 07/21/17 23:59 07:59 15:59 Intake Total 240 / 240 120 / 120 Output Total 300 / 300 Balance -60 / -60 120 / 120 Intake: Oral 240 / 240 120 / 120 Output: Urine 300 / 300 Other: Meal Dinner Breakfast Percent of Meal Consumed 90% 100% Weight 78.9 kg Blood Glucose* 435 Patient Weight 07/21/17 23:59 Weight 78.9 kg - General Appearance Exam: Patient is alert and oriented. She is in no acute distress. Lungs bilateral rhonchi and wheezing. Heart regular rate and rhythm. Abdomen shows normal bowel sounds a bruise masses, megaly or tenderness. There is no lower extremity swelling. Results - Lab Results 07/21/17 02:26 07/21/17 02:26 Most recent lab results Calcium 8.6 mg/dL (8.6-10.8) 07/21/17 02:26 Phosphorus 4.0 mg/dL (2.3-4.7) 07/18/17 03:10 Magnesium 2.0 mg/dL (1.6-2.6) 07/18/17 03:10 Consult Discharge Plan - Plan Additional Instructions: pcp requested Referrals: Gisselle Jeffery CNP [Primary Care Provider] -
[2017-07-21 11:56] LABS: Hemoglobin A1C 7.8 %
[2017-07-21] MEDS: Insulin LISPRO 300 UNITS/3 ML VIAL SQ SCH ×3 (12:18→23:05)
--- NOTE | 2017-07-21 15:48 | Internal Med Progress Note ---
Date of Encounter: 07/21/17 Time of Encounter: 10:00 - Assessment and plan (1) Community acquired pneumonia Current Visit: Yes Status: Acute Assessment and plan: Continue aztreonam and will place patient on doxycycline. Given patient's multiple allergies, we are limited in choice of antibiotics. Would recommend completing antibiotic therapy with IV aztreonam and oral doxycycline for total of 7 days. Today is day 5. Moderate risk for complications. Qualifiers: Laterality: left Lung location: unspecified part of lung Qualified Code(s ): J18.9 - Pneumonia, unspecified organism (2) Acute exacerbation of chronic obstructive airways disease Current Visit: Yes Status: Acute Assessment and plan: With underlying pneumonia. Clinically getting better. Mild wheezing today. Continue bronchodilators. Tapering steroids. (3) CAD (coronary artery disease), [place] coronary artery Current Visit: Yes Status: Chronic Assessment and plan: No chest pain. Continue aspirin, labetalol. Qualifiers: [place] vs. transplanted heart: [place] heart Associated angina: without angina Qualified Code(s): I25.10 - Atherosclerotic heart disease of [place] coronary artery without angina pectoris (4) CKD (chronic kidney disease) stage 3, GFR 30-59 ml/min Current Visit: Yes Status: Chronic Assessment and plan: Patient with chronic kidney disease stage III. Creatinine slightly above baseline. Most likely due to Dyazide use. We will stop this medication. We will consult nephrology for recommendations. (5) Hypertension Current Visit: Yes Status: Chronic Assessment and plan: Uncontrolled. Blood pressure was severely elevated this morning likely due to anxiety. Will stop Dyazide for now due to renal dysfunction. We will consult nephrology for help in managing hypertension given the patient's multiple allergies. Continue to monitor blood pressure closely. Continue hydralazine IV when necessary. Qualifiers: Hypertension type: essential hypertension Qualified Code(s): I10 - Essential (primary) hypertension (6) Hypokalemia Current Visit: No Status: Resolved (7) Type 2 diabetes mellitus Current Visit: Yes Status: Chronic Assessment and plan: Blood sugars are uncontrolled. We will place patient on long-acting insulin and sliding scale coverage. Her A1c is 7.8%. Qualifiers: Diabetes mellitus complication status: with kidney complications Diabetes mellitus complication detail: with chronic kidney disease Diabetes mellitus [facility] insulin use: unspecified joint terminal attack controller insulin use status Chronic kidney disease stage: stage 3 (moderate) Qualified Code(s): E11.22 - Type 2 diabetes mellitus with diabetic chronic kidney disease; N18.3 - Chronic kidney disease, stage 3 (moderate); N18.3 - Chronic kidney disease, stage 3 (moderate) - Subjective Interval history: Patient is awake and alert. Feels better overall but is concerned with some nursing issues overnight. Denies any chest pain at this time. No palpitations. Shortness of breath is improving. Does have good urine output. - Constitutional Vitals: Temp Pulse Resp BP Pulse Ox 97.9 F 64 18 142/78 97 07/21/17 04:52 07/21/17 07:00 07/21/17 07:00 07/21/17 15:18 07/21/17 07:00 General appearance: Present: A&O X 3, pleasant, no acute distress, answers questions appropriately - Respiratory Respiratory exam: Present: CTAB. Absent: accessory muscle use, rales, rhonchi, wheezes - Cardiovascular Cardiovascular exam: Present: RRR, +S1, +S2. Absent: diastolic murmur, gallop, rubs, systolic murmur - GI/Abdominal GI/Abdominal exam: Present: normal bowel sounds, soft, no peritoneal signs. Absent: distended, tenderness - Extremities Exam Extremities exam: Present: warm, radial pulses palpable and symmetrical. Absent : calf tenderness, cyanotic, pedal edema - Neurological Exam Neurological exam: Present: alert, oriented X3, no focal deficits. Absent: facial droop, speech deficit Internal Medicine: Result - Labs CBC & Chem 7: 07/21/17 02:26 07/21/17 02:26 Labs: Short CBC 07/21/17 Range/Units 02:26 WBC 15.5 H (4.3-11.1) K/mcL Hgb 11.2 L (11.5-15.4) g/dL Hct 35.8 (35.3-44.9) % Plt Count 158 (140-400) K/mcL Neutrophils # 13.6 H (1.6-8.9) K/mcL BMP 07/21/17 02:26 Sodium 132 L Potassium 4.9 H Chloride 95 L Carbon Dioxide 26 BUN 59 H Creatinine 1.85 H Glucose 498 H Calcium 8.6 Liver Function 07/21/17 Range/Units 02:26 Total Bilirubin 0.4 (0.2-1.2) mg/dL AST 8 (5-34) Units/L ALT 13 (0-55) Units/L Alkaline Phosphatase 111 (38-126) Units/L Albumin 2.5 L (3.5-5.0) g/dL - ABG Interpretation ABG results: PT/INR, D-dimer PT 12.5 Seconds (9.4-12.1) H 07/18/17 03:10 Consult Discharge Plan - Plan Additional Instructions: pcp requested Referrals: Gisselle Jeffery, AUTOMATIC DISPENSER MECHANIC [Primary Care Provider] -
[2017-07-21] MEDS: Benzonatate 100 MG CAPSULE PO PRN (18:09)
[2017-07-21] MEDS: ALPRAZolam 0.25 MG TABLET PO PRN (18:31)
[2017-07-21] MEDS: Doxycycline 100 MG CAPSULE PO SCH ×2 (20:43→20:58)
[2017-07-22] MEDS: Aztreonam 1,000 MG in Water for inj. (sterile) 10 ML IVP SCH ×3 (02:23→18:06)
[2017-07-22] MEDS: *HR* Heparin 5,000 UNIT/ML VIAL SQ SCH ×3 (02:23→18:06)
[2017-07-22] MEDS: hydrALAZINE 25 MG TABLET PO SCH ×3 (02:24→18:07)
[2017-07-22 03:39] LABS: Albumin 2.4 g/dL (3.5-5.0); Albumin/Globulin Ratio 0.8 (1.1-2.2); Bilirubin,Total 0.3 mg/dL (0.2-1.2); Calcium 8.4 mg/dL (8.6-10.8); Globulin 3.1 g/dL (2.4-3.5); Potassium 4.7 mEq/L (3.5-4.5); Total Protein 5.5 g/dL (6.0-8.3)
[2017-07-22 03:41] LABS: Basophils # 0.1 K/mcL (0.0-0.2); Basophils % 0.3 %; Hematocrit 33.1 % (35.3-44.9); Hemoglobin 10.6 g/dL (11.5-15.4); Immature Granulocytes % 6.6 % (0-4); Lymphocytes # 1.3 K/mcL (0.6-4.6); Lymphocytes % 7.8 %; Mean Corpuscular Volume 84.4 fL (83.0-100.0); Mean Platelet Volume 10.8 fL (9.4-12.4); Monocytes # 1.5 K/mcL (0.0-1.3); Monocytes % 8.9 %; Neutrophils # 13.1 K/mcL (1.6-8.9); Platelet Count 133 K/mcL (140-400); Red Blood Count 3.92 M/mcL (3.82-4.97); Red Cell Distribution Width 15.6 % (11.5-14.5); Segmented Neutrophils % 76.4 %
[2017-07-22 04:27] LABS: Platelet Estimate Normal (Normal); Reactive Lymphocytes Present (Not Present); Toxic Granulation Present (Not Present)
--- NOTE | 2017-07-22 07:53 | Nephrology Progress Note ---
Date of Encounter: 07/22/17 Time of Encounter: 07:52 - Assessment and Plan (1) Benign hypertension with chronic kidney disease, stage III Current Visit: Yes Status: Acute Patient's blood pressures under better control. We will not make any changes today. Her renal function is improved back towards her usual baseline. We will continue to monitor the patient. (2) Acute kidney injury superimposed on CKD Current Visit: No Status: Acute (3) Acute exacerbation of chronic obstructive airways disease Current Visit: Yes Status: Acute Subjective Interval history: Patient reports she is coughing more and has more sputum production. Her blood pressure is under better control most recently 143/71. Creatinine is improved from 1.85 down to 1.37 which is close to the patient's baseline. Objective - Vital Signs Vital signs: Vital Signs Temp Pulse Resp BP Pulse Ox 07/22/17 04:00 97.6 F 59 16 143/71 96 07/21/17 21:00 96 15 160/84 94 07/21/17 20:52 96 07/21/17 16:00 70 18 96 07/21/17 15:18 142/78 Intake and Output 07/21/17 07/21/17 07/22/17 15:59 23:59 07:59 Intake Total 250 / 250 10 / 10 0 / 0 Output Total 6600 / 6600 0 / 0 Balance 250 / 250 -6590 / -6590 0 / 0 Intake: IV Fluids 10 / 10 Azactam 1,000 MG In Water for 10 10 inj. (sterile) 10 ML @ 150 mls/ hr IVP Q8H [facility] Rx#:[id number] Oral 240 / 240 0 / 0 0 / 0 Output: Urine 6600 / 6600 0 / 0 Other: Meal Lunch Percent of Meal Consumed 100% # Voids 1 Weight 83.7 kg Blood Glucose* 408 261 Patient Weight 07/22/17 23:59 Weight 83.7 kg - General Appearance Exam: Patient is alert and oriented. She is in no acute distress. Lungs continues to demonstrate bilateral wheezing and rhonchi. Heart regular rate and rhythm. Abdomen is benign. There is no lower extremity swelling. - Lab 07/22/17 03:06 07/22/17 03:06 Most recent lab results Calcium 8.4 mg/dL (8.6-10.8) L 07/22/17 03:06 Phosphorus 4.0 mg/dL (2.3-4.7) 07/18/17 03:10 Magnesium 2.0 mg/dL (1.6-2.6) 07/18/17 03:10 Consult Discharge Plan - Plan Additional Instructions: pcp requested Referrals: Gisselle Jeffery, DRY WALL APPLICATOR [Primary Care Provider] -
[2017-07-22] MEDS: predniSONE 10 MG TABLET PO SCH (08:30)
[2017-07-22] MEDS: Insulin LISPRO 300 UNITS/3 ML VIAL SQ SCH ×4 (08:34→20:51)
[2017-07-22] MEDS: Aspirin 81 MG TAB.CHEW PO SCH ×2 (08:35→20:50)
[2017-07-22] MEDS: cloNIDine HCl 0.1 MG TABLET PO SCH ×2 (08:35→20:50)
[2017-07-22] MEDS: Doxycycline 100 MG CAPSULE PO SCH (08:36)
--- NOTE | 2017-07-22 11:53 | Internal Med Progress Note ---
Date of Encounter: 07/22/17 Time of Encounter: 11:50 - Assessment and plan (1) Community acquired pneumonia Current Visit: Yes Status: Acute Assessment and plan: Continue aztreonam (Day 6/7) Pt refusing doxycycline and claiming to have an allergy this this medication as well Pt will benefit for an leasing specialist evaluation as outpatient Pt's care plan and management was discussed in great detail with the patient and daughter. Qualifiers: Laterality: left Lung location: unspecified part of lung Qualified Code(s ): J18.9 - Pneumonia, unspecified organism (2) Acute exacerbation of chronic obstructive airways disease Current Visit: Yes Status: Acute Assessment and plan: With underlying pneumonia. Clinically getting better. Noted to have wheezing today, repeat CXR negative for any acute process Continue bronchodilators. Tapering steroids. (3) CAD (coronary artery disease), [place] coronary artery Current Visit: Yes Status: Chronic Assessment and plan: No chest pain. Continue aspirin, labetalol. Qualifiers: [place] vs. transplanted heart: [place] heart Associated angina: without angina Qualified Code(s): I25.10 - Atherosclerotic heart disease of [place] coronary artery without angina pectoris (4) CKD (chronic kidney disease) stage 3, GFR 30-59 ml/min Current Visit: Yes Status: Chronic Assessment and plan: Patient with chronic kidney disease stage III. C Nephrology on board and consultation appreciated Renal function at baseline (5) Hypertension Current Visit: Yes Status: Chronic Assessment and plan: Added Hydralazine PO by nephrology BP better controlled continue home dose of clonidine and Labetalol Qualifiers: Hypertension type: essential hypertension Qualified Code(s): I10 - Essential (primary) hypertension (6) Type 2 diabetes mellitus Current Visit: Yes Status: Chronic Assessment and plan: Blood sugars are uncontrolled. Noted to require 32units of additional insulin coverage in the last 24 hours started Levemir 16units SQ daily continue sliding scale insulin algorithm monitor FS and BG ADA diet Qualifiers: Diabetes mellitus complication status: with kidney complications Diabetes mellitus complication detail: with chronic kidney disease Diabetes mellitus fpc insulin use: unspecified termite exterminator helper insulin use status Chronic kidney disease stage: stage 3 (moderate) Qualified Code(s): E11.22 - Type 2 diabetes mellitus with diabetic chronic kidney disease; N18.3 - Chronic kidney disease, stage 3 (moderate); N18.3 - Chronic kidney disease, stage 3 (moderate) (7) DVT prophylaxis Current Visit: Yes Status: Acute Assessment and plan: Heparin SQ - Subjective Interval history: Patient seen and examined at bedside. Resting in bed and saturating well on room air. Denies any shortness of breath States she did not get much sleep last night due to which she was noted to be somnolent throughout my evaluation. She awakens easily, follows commands, and is AAO x 3. Pt revisited and seen with daughter present at bedside. Sitting in bed and eating dinner. She is unhappy with the hospital care as she claims to not have daily linen changes and no one offered to give her a bath. - Constitutional Vitals: Temp Pulse Resp BP Pulse Ox 97.2 F L 65 14 140/82 94 07/22/17 09:00 07/22/17 09:00 07/22/17 09:00 07/22/17 09:00 07/22/17 09:00 General appearance: Present: A&O X 3, pleasant, no acute distress, answers questions appropriately - Head Head exam: Present: atraumatic, normocephalic - Eye Eye exam: Present: conjuntiva pink, sclera anicteric - Respiratory Respiratory exam: Absent: respiratory distress, wheezes - Cardiovascular Cardiovascular exam: Present: RRR, +S1, +S2. Absent: diastolic murmur, gallop, rubs, systolic murmur - GI/Abdominal GI/Abdominal exam: Present: normal bowel sounds, soft, no peritoneal signs. Absent: distended, tenderness - Extremities Exam Extremities exam: Present: pedal edema (trace pedal edema bilaterally ), warm, radial pulses palpable and symmetrical. Absent: calf tenderness - Neurological Exam Neurological exam: Present: alert, oriented X3 - Psychiatric Psychiatric exam: Present: normal affect, normal mood Internal Medicine: Result - Labs CBC & Chem 7: 07/22/17 03:06 07/22/17 03:06 Labs: Short CBC 07/22/17 Range/Units 03:06 WBC 17.2 H (4.3-11.1) K/mcL Hgb 10.6 L (11.5-15.4) g/dL Hct 33.1 L (35.3-44.9) % Plt Count 133 L (140-400) K/mcL Neutrophils # 13.1 H (1.6-8.9) K/mcL BMP 12/05/17 03:06 Sodium 136 Potassium 4.7 H Chloride 100 Carbon Dioxide 28 BUN 57 H Creatinine 1.37 H Glucose 175 H Calcium 8.4 L Liver Function 07/22/17 Range/Units 03:06 Total Bilirubin 0.3 (0.2-1.2) mg/dL AST 11 (5-34) Units/L ALT 14 (0-55) Units/L Alkaline Phosphatase 97 (38-126) Units/L Albumin 2.4 L (3.5-5.0) g/dL - ABG Interpretation ABG results: PT/INR, D-dimer PT 12.5 Seconds (9.4-12.1) H 07/18/17 03:10 Consult Discharge Plan - Plan Additional Instructions: pcp requested Referrals: Gisselle Jeffery, COPIER TECHNICIAN [Primary Care Provider] -
[2017-07-22] MEDS: Insulin DETEMIR 100 UNIT/ML X5UNITS SQ SCH ×2 (14:33→18:01)
[2017-07-22] MEDS: ALPRAZolam 0.25 MG TABLET PO PRN (14:34)
[2017-07-22] MEDS ORDERED: Ipratropium/Albuterol Neb 3 ML IH PRN (17:43)
[2017-07-22] MEDS: Ipratropium/Albuterol Neb 3 ML IH SCH ×2 (20:30→23:30)
[2017-07-23] MEDS: hydrALAZINE 25 MG TABLET PO SCH ×2 (01:12→08:06)
[2017-07-23] MEDS: *HR* Heparin 5,000 UNIT/ML VIAL SQ SCH ×2 (01:12→08:07)
[2017-07-23] MEDS: Aztreonam 1,000 MG in Water for inj. (sterile) 10 ML IVP SCH ×2 (01:13→09:00)
[2017-07-23] MEDS: ALPRAZolam 0.25 MG TABLET PO PRN ×2 (01:13→10:02)
[2017-07-23] MEDS: Ipratropium/Albuterol Neb 3 ML IH SCH ×4 (04:36→14:56)
[2017-07-23 05:09] LABS: Basophils # 0.1 K/mcL (0.0-0.2); Basophils % 0.4 %; Eosinophils % 0.1 %; Hematocrit 33.7 % (35.3-44.9); Hemoglobin 10.6 g/dL (11.5-15.4); Immature Granulocytes % 7.3 % (0-4); Lymphocytes # 1.8 K/mcL (0.6-4.6); Lymphocytes % 10.6 %; Mean Corpuscular HGB Conc 31.5 g/dL (31.6-35.5); Mean Corpuscular Hemoglobin 26.6 pg (28.0-33.3); Mean Corpuscular Volume 84.7 fL (83.0-100.0); Mean Platelet Volume 11.5 fL (9.4-12.4); Monocytes # 1.3 K/mcL (0.0-1.3); Monocytes % 7.5 %; Neutrophils # 12.7 K/mcL (1.6-8.9); Platelet Count 136 K/mcL (140-400); Red Blood Count 3.98 M/mcL (3.82-4.97); Red Cell Distribution Width 15.7 % (11.5-14.5); Segmented Neutrophils % 74.1 %
[2017-07-23 05:19] LABS: Calcium 8.5 mg/dL (8.6-10.8); Magnesium 2.1 mg/dL (1.6-2.6); Phosphorous 3.9 mg/dL (2.3-4.7); Potassium 4.1 mEq/L (3.5-4.5)
[2017-07-23 06:04] LABS: Platelet Estimate Slight Decrease (Normal)
--- NOTE | 2017-07-23 07:05 | Electrocardiograph Report ---
[place] [id number] Test Date: 2017-07-20 Pat Name: Sherice Howard Department: 111 Room: 2NE20 Gender: F Airplane Dispatcher: : [id number] Requested By: Huy Donaldson Order Number: [id number] Reading MD: Chayo Anton Measurements Intervals [place] Rate: 81 P: DE: 0 QRS: 62 QRSD: 103 T: 77 QT: 402 QTc: 439 Interpretive Statements ATRIAL FIBRILLATION NONSPECIFIC T-WAVE ABNORMALITY ABNORMAL RHYTHM ECG Electronically Signed On 07-23-2017 7:03:17 EST by Chayo Anton
[2017-07-23 07:17] VITALS: BP 132/68
--- NOTE | 2017-07-23 07:44 | Event Note ---
Date of Encounter: 07/23/17 Time of Encounter: 07:43 The patient's blood pressure is under better control. Serum creatinine is at the patient's baseline. Nephrology will sign off. Please call again if needed.
[2017-07-23] MEDS: Insulin LISPRO 300 UNITS/3 ML VIAL SQ SCH ×2 (08:07→12:04)
[2017-07-23] MEDS: predniSONE 10 MG TABLET PO SCH (08:48)
[2017-07-23] MEDS: Aspirin 81 MG TAB.CHEW PO SCH (08:48)
[2017-07-23] MEDS: cloNIDine HCl 0.1 MG TABLET PO SCH (08:48)
[2017-07-23] MEDS: Insulin DETEMIR 100 UNIT/ML X5UNITS SQ SCH (08:51)
--- NOTE | 2017-07-23 12:38 | Discharge Summary ---
Date of Encounter: 07/23/17 Time of Encounter: 11:45 - Discharge Diagnosis (1) Community acquired pneumonia Priority: Primary Status: Acute Qualifiers: Laterality: left Lung location: unspecified part of lung Qualified Code(s ): J18.9 - Pneumonia, unspecified organism (2) Acute exacerbation of chronic obstructive airways disease Priority: Primary Status: Acute (3) CAD (coronary artery disease), [place] coronary artery Priority: Secondary Status: Chronic Qualifiers: [place] vs. transplanted heart: [place] heart Associated angina: without angina Qualified Code(s): I25.10 - Atherosclerotic heart disease of [place] coronary artery without angina pectoris (4) CKD (chronic kidney disease) stage 3, GFR 30-59 ml/min Priority: Secondary Status: Chronic (5) Hypertension Priority: Secondary Status: Chronic Qualifiers: Hypertension type: essential hypertension Qualified Code(s): I10 - Essential (primary) hypertension (6) Type 2 diabetes mellitus Priority: Secondary Status: Chronic Qualifiers: Diabetes mellitus complication status: with kidney complications Diabetes mellitus complication detail: with chronic kidney disease Diabetes mellitus jail insulin use: unspecified truck terminal manager insulin use status Chronic kidney disease stage: stage 3 (moderate) Qualified Code(s): E11.22 - Type 2 diabetes mellitus with diabetic chronic kidney disease; N18.3 - Chronic kidney disease, stage 3 (moderate); N18.3 - Chronic kidney disease, stage 3 (moderate) (7) DVT prophylaxis Priority: Secondary Status: Acute - Discharge Medications Prescriptions: hydrALAZINE [HydrALAZINE] 50 mg PO Q8HR #90 tablet Benzonatate [Tessalon] 100 mg PO TID PRN #15 capsule PRN Reason: Cough Home Medications: Labetalol [Trandate] 200 mg PO BID 05/30/15 [History] cloNIDine HCl [CloNIDine HCl] 0.3 mg PO BID #180 tablet 10/11/16 [Rx] Oxygen 2 l NS AD 10/22/16 [History] Allopurinol [Zyloprim 100 MG] 100 mg PO DAILY 01/16/17 [History] Albuterol Sulfate [Ventolin Hfa] 2 puff IH Q6H PRN 07/17/17 [History] Aspirin 81 mg PO BID 07/17/17 [History] Fluticasone Propionate Nasal [Flonase] 2 spr NS QAM 07/17/17 [History] Fluticasone/Salmeterol [Advair 250-50 Diskus] 1 puff IH BID 07/17/17 [History] Furosemide [Lasix] 20 mg PO DAILY 07/17/17 [History] Potassium Chloride [K-Tab ER] 40 meq PO DAILY 07/17/17 [History] PredniSONE [Deltasone] See Taper PO AD 07/17/17 [History] Sertraline [Zoloft] 100 mg PO DAILY 07/17/17 [History] Benzonatate [Tessalon] 100 mg PO TID PRN #15 capsule 07/23/17 [Rx] hydrALAZINE [HydrALAZINE] 50 mg PO Q8HR #90 tablet 07/23/17 [Rx] Allergies/Adverse Reactions: 3 Allergy/AdvReac Type Severity Reaction Status Date / Time Amoxicillin Allergy Rash Verified 07/17/17 09:42 atorvastatin [From Lipitor] Allergy See Verified 07/17/17 09:42 Comments cephalexin [From Keflex] Allergy See Verified 07/17/17 09:42 Comments doxycycline Allergy See Verified 07/22/17 07:35 Comments iodine Allergy SHAKING Verified 07/17/17 09:42 levofloxacin [From Levaquin] Allergy LIP Verified 07/17/17 09:42 SWELLING sitagliptin [From Januvia] Allergy Difficulty Verified 07/17/17 09:42 Breathing sulfamethoxazole Allergy Rash Verified 07/17/17 09:42 [From Bactrim] trimethoprim [From Bactrim] Allergy Rash Verified 07/17/17 09:42 amlodipine [From Norvasc] AdvReac SEE COMMENT Verified 07/17/17 09:42 cefuroxime [From Ceftin] AdvReac MUSCLE Verified 07/17/17 09:42 CRAMPS fluoxetine [From Prozac] AdvReac SEE COMMENT Verified 07/17/17 09:42 metoprolol AdvReac Dizziness Verified 07/17/17 09:42 nifedipine AdvReac Headache Verified 07/17/17 09:42 Oxycodone AdvReac Headache Verified 07/12/17 23:21 Paroxetine [From Paxil] AdvReac CHILLS AND Verified 07/17/17 09:42 ITCH Prazosin AdvReac TACHYCARDIA Verified 07/17/17 09:42 Saxagliptin [From Onglyza] AdvReac UNKNOWN Verified 07/17/17 09:42 PER PT sertraline [From Zoloft] AdvReac Hallucinati Verified 07/17/17 02:25 ng simvastatin [From Zocor] AdvReac MUSCLE Verified 07/17/17 09:42 WEAKNESS Date of admission: 07/17/17 09:51 Primary care physician: Gisselle Jeffery CNP Consults: 07/21/17 07:40 Consult to Nephrology [CONS] Routine Consulting Provider: [facility] Reason for Consult: MARTIN on CKD and Accelerated Hypertension Time Notified: 07:40 Call Completed: Yes Discharging clinician: Yamile Cam Anticipated date of discharge: 07/23/17 - Patient Status Disposition: Home, Self-Care Condition: Good Functional capacity at discharge: uses cane/walker Overall status at discharge: patient is back to baseline - Discharge Instructions Instructions: Diabetic Hypoglycemia (GEN), Diabetes Mellitus Type 2 in Adults ( DC), Community-acquired Pneumonia (GEN) Follow Up With: Gisselle Jeffery CNP [Primary Care Provider] - Uday Mendoza MD [Partnered Physician] - Additional Instructions: Please follow up with your primary care physician within five days after your discharge from the hospital. Please follow up with nephrology within one to two weeks after your discharge from the hospital. Your home medications have been changed as follows: 1. Hydralazine has been increased to 50mg three times a day. 2. Dyazide has been discontinued 3. Prednisone taper has been added. Take Prednisone 20mg once a day for three days followed by Prednisone 10mg once a day for three days. Please resume all other home medications as prescribed by your primary care physician. - Diet and Activity Activity: increase activity as tolerated Diet: diabetic diet, low fat, low cholesterol, low salt diet Hospital course: Ms. Howard is a 77 year old female with PMH of COPD, DM,HTN, CHF, HLD, CKD who was admitted for COPD exacerbation secondary to PNA. Pt was started on IV steroids and IV abx. Given her extensive drug allergy list she was only able to take IV abx. She responded well to therapy and has been transitioned to prednisone taper. She has completed abx therapy for her PNA. She is currently saturating well on room air. Her hospital course was also complicated by Acute on chronic kidney injury which was likely secondary to her home dose of Dyazide , nephrology was consulted. Her home dose of dyazide was discontinued and Hydralazine dose was increased to 50mg q8h for better BP control. At this time, she is hemodynamically stable and saturating well on room air. She has been unhappy with the staff in regards to daily change of her linens and daily baths. She will be discharged to home today. - Time Spent with Patient Total time spent providing and/or coordinating discharge services: Greater than 30 minutes - Constitutional Vitals: Temp Pulse Resp BP Pulse Ox 97.9 F 57 18 132/68 91 07/23/17 07:00 07/23/17 07:00 07/23/17 11:36 07/23/17 07:00 07/23/17 11:36 General appearance: Present: A&O X 3, pleasant, no acute distress, answers questions appropriately - Head Head exam: Present: atraumatic, normocephalic - Eye Eye exam: Present: conjuntiva pink, sclera anicteric - Respiratory Respiratory exam: Present: CTAB. Absent: accessory muscle use, rales, respiratory distress, wheezes - Cardiovascular Cardiovascular exam: Present: RRR, +S1, +S2. Absent: diastolic murmur, gallop, rubs, systolic murmur - GI/Abdominal GI/Abdominal exam: Present: normal bowel sounds, soft, no peritoneal signs. Absent: distended, tenderness - Extremities Exam Extremities exam: Present: warm, radial pulses palpable and symmetrical. Absent : calf tenderness - Neurological Exam Neurological exam: Present: alert, oriented X3
== END 2017-07-23 15:33 | disposition home or self-care (01) | DRG 194 ==
LOC: 2NENU → SUATTDRO 09:51
PROVIDERS: ADMIT Internal Medicine; ATTEND Internal Medicine

== ENCOUNTER 2017-08-12 01:44 | Inpatient (IN) ==
[2017-08-12] MEDS ORDERED: Ondansetron 4 MG/2 ML VIAL IVP PRN (04:28)
[2017-08-12] MEDS ORDERED: Acetaminophen 325 MG TABLET PO PRN (04:28)
[2017-08-12] MEDS ORDERED: Nitroglycerin 1 INCH/GM PACKET TP ONE (04:32)
[2017-08-12] MEDS ORDERED: Dextrose Gel 15 GM/37.5 ML TUBE PO PRN ×2 (04:33)
[2017-08-12] MEDS ORDERED: *HR* Dextrose 50 % in Water (Syg) 50 ML SYRINGE IVP PRN (04:33)
[2017-08-12] MEDS ORDERED: D5% in Water 1,000 ML IVC PRN (04:33)
[2017-08-12] MEDS ORDERED: Ipratropium/Albuterol Neb 3 ML IH PRN (04:36)
[2017-08-12] MEDS ORDERED: Azithromycin 500 MG in D5% in Water 250 ML IVPB SCH (05:00)
--- NOTE | 2017-08-12 05:03 | Internal Med History&Physical ---
Date of Encounter: 08/12/17 Time of Encounter: 04:00 Assessment and Plan (1) CHF exacerbation Current visit: Yes Status: Acute Pt was on hold lasix b/o concern of renal function. She has elevated BNP and CXR shows pulmonary congestion. Increased SOB. Consider CHF exacerbation. - Place pt on lasix 40mg iv daily. - Closely monitor renal function. - Strict I/O - Fluid restriction diet - Recent Echo shows EF 60% Qualifiers: Congestive heart failure type: diastolic Qualified Code(s): I50.33 - Acute on chronic diastolic (congestive) heart failure (2) Acute exacerbation of chronic obstructive airways disease Current visit: No Status: Acute Pt has Hx of COPD on home O2. Worsen SOB with CO2 retention on ABG. Consider COPD exacerbation. - Will place pt on azithromycin, steroid, and duoneb. - Cont BiPAP supportive treatment now. - Closely monitor pulse oxymetry. (3) DVT prophylaxis Current visit: No Status: Acute Heparin SC. (4) Elevated troponin Current visit: No Status: Acute Mild elevated troponin on CKD and CHF pt, Pt has no chest pain. EKG unremarkable. consider demand ischemia. However, second troponin mildly increased. - Will cont cardiac monitoring. - Track 2 more sets of troponin. - Consider cardiac consult if troponin significantly elevated. (5) Uncontrolled hypertension Current visit: No Status: Acute Pt has high BP to 190 in [facility] ER. - Will d/c clonidine - Will increase Labetolol to 400mg po tid. - Give one inch of nitro paste now. - Hydralazine 10mg iv q6h prn for SBP > 160 (6) CKD (chronic kidney disease) stage 3, GFR 30-59 ml/min Current visit: No Status: Chronic Stable Cr level. Closely monitor renal function. Avoid nephrotoxic med (use low dose lasix for CHF but will hold if renal function not tolerate) (7) Type 2 diabetes mellitus Current visit: No Status: Chronic Pt is not taking med at home. Place her on SSI given pt is also on steroid.. Qualifiers: Diabetes mellitus complication status: with kidney complications Diabetes mellitus complication detail: with chronic kidney disease Diabetes mellitus assistant terminal manager insulin use: unspecified assisted insulin use status Chronic kidney disease stage: stage 3 (moderate) Qualified Code(s): E11.22 - Type 2 diabetes mellitus with diabetic chronic kidney disease; N18.3 - Chronic kidney disease, stage 3 (moderate); N18.3 - Chronic kidney disease, stage 3 (moderate) Internal Medicine - H&P: HPI Chief complaint: Shortness of breath Admitted From: Home Plans for Post Hospital Care: Home History of present illness: Ms. Howard is a 77 year old female with history of diabetes, hypertension, COPD on home med, left renal cancer S/P nephrectomy, presents to [facility] emergency room for shortness of breath. Patient said she was admitted in hospital for pneumonia in June. After discharge, she feels weak and continuous having shortness of breath. Patient takes lasix previously but was discontinued later b/o concern for renal function. Pt has uncontrolled HTN and was placed on hydralazine 50mg po tid, which was also discontinued 4 days ago [address] [facility] ER with concern of side effects of weakness. Pt has increased SOB today. No fever. Mild cough, nonproductive. Pt denies chest pain but c/o some tightness. Pt has mild nausea, no vomiting, no diaphoresis. Pt c/o mild abd distention/edema, she can pass gas and had BM today. In [facility] ER, ABG shows CO2 retention. Elevated BNP with CXR shows pulmonary vascular congestion. Pt also has mild elevated troponin. Pt was give steroid and lasix and was placed on BiPAP. Pt was transferred to [facility] for further management. Past Med Surg Social Fam HX - Past Medical History Medical history: arthritis, asthma, cancer, CHF, COPD, diabetes, hyperlipidemia , hypertension, kidney stones, malignancy, osteoporosis, peripheral artery disease, renal disease, venous stasis Psychiatric history: anxiety, depression - Past Surgical History Surgical History: appendectomy, cancer surgery, cholecystectomy, knee replacement - Social History Smoking Status: Former smoker Smokeless Tobacco Status: No Alcohol use: none Drug use: none - Family History Mother Adopted: No Family Member Ethnicity: Non- Living Status: Cause of : heart problems Hx Family Cardiac Disorders: Yes (Open heart surgery, valve problem.) Hx Family Respiratory Disorders: No Hx Family Cancer: No Hx Family GI Disorders: No Hx Family Endocrine Disorder: No Hx Family Neuromuscular Disorders: No Hx Family Neurologic Disorders: No Hx Family HEENT Disorders: No Hx Family Autoimmune Disorders: No Internal Medicine - H&P: Meds Labetalol [Trandate] 200 mg PO BID 05/30/15 [History] cloNIDine HCl [CloNIDine HCl] 0.3 mg PO BID #180 tablet 10/11/16 [Rx] Oxygen 2 l NS AD 10/22/16 [History] Allopurinol [Zyloprim 100 MG] 100 mg PO DAILY 01/16/17 [History] Albuterol Sulfate [Ventolin Hfa] 2 puff IH Q6H PRN 07/17/17 [History] Aspirin 81 mg PO BID 07/17/17 [History] Fluticasone Propionate Nasal [Flonase] 2 spr NS QAM 07/17/17 [History] Potassium Chloride [K-Tab ER] 10 meq PO DAILY 07/17/17 [History] Sertraline [Zoloft] 100 mg PO DAILY 07/17/17 [History] Benzonatate [Tessalon] 100 mg PO TID PRN #15 capsule 07/23/17 [Rx] hydrALAZINE [HydrALAZINE] 50 mg PO Q8HR #90 tablet 07/23/17 [Rx] 3 Allergy/AdvReac Type Severity Reaction Status Date / Time Amoxicillin Allergy Rash Verified 07/17/17 09:42 atorvastatin [From Lipitor] Allergy See Verified 07/17/17 09:42 Comments cefdinir [From Omnicef] Allergy Vomiting Verified 08/11/17 22:21 cephalexin [From Keflex] Allergy See Verified 07/17/17 09:42 Comments Cortisone Allergy Redness of Verified 08/11/17 22:20 Skin doxycycline Allergy See Verified 07/22/17 07:35 Comments Erythromycin Base Allergy Cramping Verified 08/11/17 22:21 of the Muscles iodine Allergy SHAKING Verified 07/17/17 09:42 levofloxacin [From Levaquin] Allergy LIP Verified 07/17/17 09:42 SWELLING sitagliptin [From Januvia] Allergy Difficulty Verified 07/17/17 09:42 Breathing sulfamethoxazole Allergy Rash Verified 07/17/17 09:42 [From Bactrim] trimethoprim [From Bactrim] Allergy Rash Verified 07/17/17 09:42 amlodipine [From Norvasc] AdvReac SEE COMMENT Verified 07/17/17 09:42 cefuroxime [From Ceftin] AdvReac MUSCLE Verified 07/17/17 09:42 CRAMPS enalaprilat [From Vasotec] AdvReac Cough Verified 08/11/17 22:17 fluoxetine [From Prozac] AdvReac SEE COMMENT Verified 07/17/17 09:42 metoprolol AdvReac Dizziness Verified 07/17/17 09:42 nifedipine AdvReac Headache Verified 07/17/17 09:42 nystatin AdvReac See Verified 08/11/17 22:21 Comments Oxycodone AdvReac Headache Verified 07/12/17 23:21 Paroxetine [From Paxil] AdvReac CHILLS AND Verified 07/17/17 09:42 ITCH Prazosin AdvReac TACHYCARDIA Verified 07/17/17 09:42 Saxagliptin [From Onglyza] AdvReac UNKNOWN Verified 07/17/17 09:42 PER PT sertraline [From Zoloft] AdvReac Hallucinati Verified 07/17/17 02:25 ng simvastatin [From Zocor] AdvReac MUSCLE Verified 07/17/17 09:42 WEAKNESS hydrin Allergy See Uncoded 08/11/17 22:20 Comments All Systems PM: A 10-system review of systems was performed and is negative for pertinent findings except as documented above in the HPI. - Constitutional Vitals: Temp Pulse Resp BP Pulse Ox 98.1 F 78 23 206/103 96 08/12/17 03:42 08/12/17 03:42 08/12/17 03:44 08/12/17 03:42 08/12/17 03:44 General appearance: Present: mild distress, A&O X 3, obese, answers questions appropriately - Head Head exam: Present: atraumatic, normocephalic - Eye Eye exam: Present: PERRL, conjuntiva pink, sclera anicteric Pupils: Present: PERRL - Neck Neck exam general surgery: Present: supple, trachea midline. Absent: lymphadenopathy - Respiratory Respiratory exam: Present: CTAB, rales (Fine crackles on b/l lung base). Absent : accessory muscle use, rhonchi, wheezes - Cardiovascular Cardiovascular exam: Present: RRR, +S1, +S2. Absent: diastolic murmur, gallop, rubs, systolic murmur - GI/Abdominal GI/Abdominal exam: Present: normal bowel sounds, soft, tenderness (Mild Lt side tenderness w/o rebound or guarding), no peritoneal signs. Absent: distended - Extremities Exam Extremities exam: Present: warm, radial pulses palpable and symmetrical. Absent : calf tenderness, cyanotic, pedal edema - Neurological Exam Neurological exam: Present: CN II-XII intact, oriented X3, no focal deficits. Absent: pronater drift, facial droop, speech deficit - Skin Skin exam: Present: dry, intact Internal Med - H&P Results - EKG Data -: EKG Interpreted by Myself EKG shows normal: sinus rhythm Rate: normal
[2017-08-12 05:30] LABS: Calcium 8.5 mg/dL (8.6-10.3); Potassium 3.6 mEq/L (3.5-5.1)
[2017-08-12 05:35] LABS: Basophils % 0.3 %; Hematocrit 32.7 % (35.3-44.9); Hemoglobin 9.8 g/dL (11.5-15.4); Immature Granulocytes % 0.3 % (0-4); Lymphocytes # 0.3 K/mcL (0.6-4.6); Lymphocytes % 7.3 %; Mean Corpuscular Hemoglobin 26.1 pg (28.0-33.3); Mean Platelet Volume 11.2 fL (9.4-12.4); Monocytes % 0.8 %; Neutrophils # 3.5 K/mcL (1.6-8.9); Platelet Count 114 K/mcL (140-400); Red Blood Count 3.76 M/mcL (3.82-4.97); Red Cell Distribution Width 14.8 % (11.5-14.5); Segmented Neutrophils % 91.3 %
[2017-08-12] MEDS: *HR* Heparin 5,000 UNIT/ML VIAL SQ SCH ×2 (05:36→18:17)
[2017-08-12] MEDS: MethylPREDNISolone 40 MG/ML VIAL IVP SCH ×2 (06:03→18:17)
[2017-08-12] MEDS: Fluticasone Propionate Nasal 50 MCG/SPRAY BOTTLE NS SCH (07:58)
[2017-08-12] MEDS: Insulin LISPRO 300 UNITS/3 ML VIAL SQ SCH ×4 (07:58→22:10)
[2017-08-12] MEDS: Aspirin 81 MG TAB.CHEW PO SCH ×2 (07:58→22:10)
[2017-08-12] MEDS ORDERED: Furosemide 40 MG/4 ML VIAL IVP SCH (09:00)
[2017-08-12] MEDS: Ipratropium/Albuterol Neb 3 ML IH SCH ×3 (10:54→21:19)
[2017-08-12] MEDS ORDERED: ALPRAZolam 0.5 MG TABLET PO PRN (12:18)
[2017-08-12] MEDS: cloNIDine HCl 0.1 MG TABLET PO SCH ×2 (13:36→22:09)
--- NOTE | 2017-08-12 15:31 | Internal Med Progress Note ---
Date of Encounter: 08/12/17 Time of Encounter: 12:30 - Assessment and plan (1) Acute diastolic congestive heart failure Current Visit: Yes Status: Acute Assessment and plan: Reviewed her 2 D Echo from 07/2017 showed preserved normal LVEF @ 60%, mild LV diastolic dysfunction noticed Cont IV diuresis with Lasix - 20mg BID Strict i & O contASA, B richard, Labetalol and statin (2) Acute and chronic respiratory failure with hypoxia Current Visit: Yes Status: Acute Assessment and plan: she does have mild resp distress , acute on chronic hypoxia.. uses 2 lit at home , currently on 3 lit o2 mostly due to CHF exacerbation will try to wean her off the O2 to 2 lit as she tolerates (3) COPD exacerbation Current Visit: No Status: Acute Assessment and plan: Cont empirical abx cont Systemic Steroids Cont Duoneb (4) Elevated troponin Current Visit: No Status: Acute Assessment and plan: Due to demand ischemia no CP Trop started trending down (5) Uncontrolled hypertension Current Visit: No Status: Acute Assessment and plan: due to CHF exacerbation resumed all home PO meds - Labetalol 200mg BID + Clonidone 0.3mg BID + Hydralazine 50mh TID (6) CAD (coronary artery disease), [place] coronary artery Current Visit: No Status: Chronic Assessment and plan: resumed home meds Qualifiers: [place] vs. transplanted heart: [place] heart Associated angina: without angina Qualified Code(s): I25.10 - Atherosclerotic heart disease of [place] coronary artery without angina pectoris - Subjective Interval history: Ms. Howard is a 77 year old female with history of diabetes, hypertension, COPD on home O2 dependent at 2 lit, left renal cancer S/P nephrectomy, presents to [place] emergency room for shortness of breath. Patient said she was admitted in hospital for pneumonia in June. After discharge, she feels weak and continuous having shortness of breath. Patient takes lasix previously but was discontinued later b/o concern for renal function. Pt has uncontrolled HTN and was placed on hydralazine 50mg po tid, which was also discontinued 4 days ago by [facility] ER with concern of side effects of weakness. Pt was admitted in the hospital placed her on groundwater monitoring technician and started on IV diuresis. Her symptoms started improving. She feels better now. Still on 3 lit O2. Denied any CP. - Constitutional Vitals: Temp Pulse Resp BP Pulse Ox 98.1 F 72 20 181/66 98 08/12/17 11:00 08/12/17 11:00 08/12/17 11:00 08/12/17 11:00 08/12/17 11:00 General appearance: Present: A&O X 3, obese, answers questions appropriately - Head Head exam: Present: atraumatic, normal inspection - Neck Neck exam general surgery: Present: supple - Respiratory Respiratory exam: Present: decreased breath sounds, rales, wheezes (moderate). Absent: respiratory distress, rhonchi - Cardiovascular Cardiovascular exam: Present: RRR, +S1, +S2. Absent: tachycardia - GI/Abdominal GI/Abdominal exam: Present: normal bowel sounds, soft. Absent: rebound, rigid, tenderness - Extremities Exam Extremities exam: Present: pedal edema (1 +). Absent: calf tenderness, tenderness - Back Exam Back exam: Absent: CVA tenderness (L), CVA tenderness (R) - Neurological Exam Neurological exam: Present: alert, oriented X3 - Psychiatric Psychiatric exam: Present: normal affect, normal mood Internal Medicine: Result - Labs CBC & Chem 7: 08/12/17 05:07 08/12/17 05:07 Labs: Short CBC 08/12/17 Range/Units 05:07 WBC 3.8 L (4.3-11.1) K/mcL Hgb 9.8 L (11.5-15.4) g/dL Hct 32.7 L (35.3-44.9) % Plt Count 114 L (140-400) K/mcL Neutrophils # 3.5 (1.6-8.9) K/mcL BMP 08/12/17 05:07 Sodium 141 Potassium 3.6 Chloride 99 Carbon Dioxide 33 H BUN 19 Creatinine 1.10 Glucose 285 H Calcium 8.5 L Cardiac Enzymes 08/12/17 08/12/17 Range/Units 05:07 11:11 Troponin I 0.08 H* 0.05 H* (< 0.04) ng/mL Consult Discharge Plan - Plan Referrals: Gisselle Jeffery, SPOTLIGHT OPERATOR [Primary Care Provider] -
[2017-08-12] MEDS: hydrALAZINE 25 MG TABLET PO SCH (16:37)
[2017-08-12] MEDS: Furosemide 40 MG/4 ML VIAL IVP SCH (22:08)
[2017-08-13] MEDS: hydrALAZINE 25 MG TABLET PO SCH ×5 (01:25→16:36)
[2017-08-13] MEDS: Ipratropium/Albuterol Neb 3 ML IH SCH ×4 (03:42→22:22)
[2017-08-13 06:00] LABS: Hematocrit 29.2 % (35.3-44.9); Immature Granulocytes % 0.7 % (0-4); Lymphocytes # 0.5 K/mcL (0.6-4.6); Lymphocytes % 7.9 %; Mean Corpuscular HGB Conc 30.8 g/dL (31.6-35.5); Mean Corpuscular Hemoglobin 26.5 pg (28.0-33.3); Mean Corpuscular Volume 85.9 fL (83.0-100.0); Mean Platelet Volume 10.8 fL (9.4-12.4); Monocytes # 0.3 K/mcL (0.0-1.3); Monocytes % 4.9 %; Neutrophils # 5.1 K/mcL (1.6-8.9); Platelet Count 142 K/mcL (140-400); Red Cell Distribution Width 14.8 % (11.5-14.5); Segmented Neutrophils % 86.5 %
[2017-08-13] MEDS: *HR* Heparin 5,000 UNIT/ML VIAL SQ SCH ×2 (06:17→17:24)
[2017-08-13] MEDS: MethylPREDNISolone 40 MG/ML VIAL IVP SCH (06:17)
[2017-08-13 06:18] LABS: Calcium 8.1 mg/dL (8.6-10.3); Magnesium 1.6 mg/dL (1.6-2.6); Potassium 3.2 mEq/L (3.5-5.1)
[2017-08-13] MEDS: cloNIDine HCl 0.1 MG TABLET PO SCH ×2 (09:14→20:43)
[2017-08-13] MEDS: Furosemide 40 MG/4 ML VIAL IVP SCH ×2 (09:14→20:43)
[2017-08-13] MEDS: Azithromycin 250 MG TABLET PO SCH (09:15)
[2017-08-13] MEDS: Aspirin 81 MG TAB.CHEW PO SCH ×2 (09:16→20:43)
[2017-08-13] MEDS: Fluticasone Propionate Nasal 50 MCG/SPRAY BOTTLE NS SCH (09:22)
[2017-08-13] MEDS: Insulin LISPRO 300 UNITS/3 ML VIAL SQ SCH ×4 (09:35→20:45)
--- NOTE | 2017-08-13 15:09 | Internal Med Progress Note ---
Date of Encounter: 08/13/17 Time of Encounter: 15:07 - Assessment and plan (1) Acute diastolic congestive heart failure Current Visit: Yes Status: Acute Assessment and plan: Reviewed her 2 D Echo from 07/2017 showed preserved normal LVEF @ 60%, mild LV diastolic dysfunction noticed Cont IV diuresis with Lasix - 20mg BID Strict I & O cont ASA, B richard, Labetalol and statin (2) Acute and chronic respiratory failure with hypoxia Current Visit: Yes Status: Acute Assessment and plan: she does have mild resp distress , acute on chronic hypoxia.. uses 2 lit at home , currently on 3 lit o2 mostly due to CHF exacerbation will try to wean her off the O2 to 2 lit as she tolerates (3) COPD exacerbation Current Visit: No Status: Inactive Assessment and plan: Cont empirical abx switched to PO Prednisone Cont Duoneb (4) Elevated troponin Current Visit: No Status: Inactive Assessment and plan: Due to demand ischemia no CP Trop started trending down (5) Uncontrolled hypertension Current Visit: No Status: Inactive Assessment and plan: due to CHF exacerbation + Resp distress still fairly controlled.. Apparently pt refused to take her Hydraalzine I counseled the pt and explained to her about BP medications. resumed all home PO meds - Labetalol 200mg BID + Clonidone 0.3mg BID + Hydralazine 50mh TID If BP still not get better will inc Hydralazine to 100mg TID cont Hydralazine IV PRN (6) CAD (coronary artery disease), [place] coronary artery Current Visit: No Status: Chronic Assessment and plan: resumed home meds Qualifiers: [place] vs. transplanted heart: [place] heart Associated angina: without angina Qualified Code(s): I25.10 - Atherosclerotic heart disease of [place] coronary artery without angina pectoris - Subjective Interval history: Ms. Howard is a 77 year old female with history of diabetes, hypertension, COPD on home O2 dependent at 2 lit, left renal cancer S/P nephrectomy, presents to [place] emergency room for shortness of breath. Patient said she was admitted in hospital for pneumonia in June. After discharge, she feels weak and continuous having shortness of breath. Patient takes lasix previously but was discontinued later b/o concern for renal function. Pt has uncontrolled HTN and was placed on hydralazine 50mg po tid, which was also discontinued 4 days ago by [facility] ER with concern of side effects of weakness. Pt was admitted in the hospital placed her on telemetry monitor and started on IV diuresis. Her symptoms started improving. She feels better now. Still on 3 lit O2. Denied any CP. Did use BiPAP last night. Apparently pt did refuse hydralazine 50mg tabs - Constitutional Vitals: Temp Pulse Resp BP Pulse Ox 97.8 F 65 20 180/73 98 08/13/17 13:00 08/13/17 13:00 08/13/17 13:00 08/13/17 13:00 08/13/17 13:00 General appearance: Present: A&O X 3, obese, answers questions appropriately - Head Head exam: Present: atraumatic, normal inspection - Neck Neck exam general surgery: Present: supple - Respiratory Respiratory exam: Present: decreased breath sounds, wheezes (moderate). Absent : rales, respiratory distress, rhonchi - Cardiovascular Cardiovascular exam: Present: RRR, +S1, +S2. Absent: tachycardia - GI/Abdominal GI/Abdominal exam: Present: normal bowel sounds, soft. Absent: rebound, rigid, tenderness - Extremities Exam Extremities exam: Present: pedal edema (improving). Absent: calf tenderness, tenderness - Back Exam Back exam: Absent: CVA tenderness (L), CVA tenderness (R) - Neurological Exam Neurological exam: Present: alert, oriented X3 - Psychiatric Psychiatric exam: Present: normal affect, normal mood Internal Medicine: Result - Labs CBC & Chem 7: 08/13/17 05:39 08/13/17 05:39 Labs: Short CBC 08/13/17 Range/Units 05:39 WBC 5.9 D (4.3-11.1) K/mcL Hgb 9.0 L (11.5-15.4) g/dL Hct 29.2 L (35.3-44.9) % Plt Count 142 (140-400) K/mcL Neutrophils # 5.1 (1.6-8.9) K/mcL BMP 08/13/17 05:39 Sodium 140 Potassium 3.2 L Chloride 98 Carbon Dioxide 37 H BUN 25 H Creatinine 1.18 Glucose 243 H Calcium 8.1 L Consult Discharge Plan - Plan Referrals: Gisselle Jeffery, BILLING REP [Primary Care Provider] - 08/19/17 1:15 pm
[2017-08-14] MEDS: hydrALAZINE 25 MG TABLET PO SCH ×3 (00:27→17:32)
[2017-08-14] MEDS: Ipratropium/Albuterol Neb 3 ML IH SCH ×4 (04:10→21:53)
[2017-08-14] MEDS: *HR* Heparin 5,000 UNIT/ML VIAL SQ SCH ×2 (05:31→17:32)
[2017-08-14] MEDS: Insulin LISPRO 300 UNITS/3 ML VIAL SQ SCH ×4 (09:09→21:14)
[2017-08-14] MEDS: Azithromycin 250 MG TABLET PO SCH (09:10)
[2017-08-14] MEDS: Aspirin 81 MG TAB.CHEW PO SCH ×2 (09:10→21:13)
[2017-08-14] MEDS: Fluticasone Propionate Nasal 50 MCG/SPRAY BOTTLE NS SCH (09:10)
[2017-08-14] MEDS: cloNIDine HCl 0.1 MG TABLET PO SCH ×2 (09:10→21:13)
[2017-08-14] MEDS: predniSONE 20 MG TABLET PO SCH (09:10)
[2017-08-14] MEDS: Furosemide 40 MG/4 ML VIAL IVP SCH (09:11)
[2017-08-14 12:21] LABS: Eosinophils % 0.2 %; Hematocrit 32.5 % (35.3-44.9); Hemoglobin 9.8 g/dL (11.5-15.4); Immature Granulocytes % 0.4 % (0-4); Lymphocytes # 1.1 K/mcL (0.6-4.6); Lymphocytes % 11.9 %; Mean Corpuscular HGB Conc 30.2 g/dL (31.6-35.5); Mean Corpuscular Hemoglobin 26.6 pg (28.0-33.3); Mean Corpuscular Volume 88.1 fL (83.0-100.0); Mean Platelet Volume 10.6 fL (9.4-12.4); Monocytes # 1.1 K/mcL (0.0-1.3); Monocytes % 11.8 %; Neutrophils # 6.9 K/mcL (1.6-8.9); Platelet Count 198 K/mcL (140-400); Red Blood Count 3.69 M/mcL (3.82-4.97); Red Cell Distribution Width 15.3 % (11.5-14.5); Segmented Neutrophils % 75.7 %
[2017-08-14 12:35] LABS: Calcium 8.2 mg/dL (8.6-10.3); Magnesium 1.7 mg/dL (1.6-2.6); Potassium 2.9 mEq/L (3.5-5.1)
[2017-08-14] MEDS ORDERED: Sennosides/Docusate Sodium TABLET PO PRN (13:04)
--- NOTE | 2017-08-14 13:38 | Internal Med Progress Note ---
Date of Encounter: 08/14/17 Time of Encounter: 11:00 - Assessment and plan (1) Acute diastolic congestive heart failure Current Visit: Yes Status: Acute Assessment and plan: Reviewed her 2 D Echo from 07/2017 showed preserved normal LVEF @ 60%, mild LV diastolic dysfunction noticed Improved.. seems euvolemic today held Lasix since her Cr went up to 1.4 Strict I & O cont ASA, B richard, Labetalol and statin (2) Acute and chronic respiratory failure with hypoxia Current Visit: Yes Status: Acute Assessment and plan: she does have mild resp distress , acute on chronic hypoxia.. uses 2 lit at home , currently on 3 lit o2 mostly due to CHF exacerbation and COPD exacerbation will try to wean her off the O2 to 2 lit as she tolerates (3) COPD exacerbation Current Visit: No Status: Inactive Assessment and plan: Cont empirical abx cont tapering steroids Prednisone Cont Duoneb (4) Elevated troponin Current Visit: No Status: Inactive Assessment and plan: Due to demand ischemia no CP Trop started trending down (5) Uncontrolled hypertension Current Visit: No Status: Inactive Assessment and plan: due to CHF exacerbation + Resp distress little better today Cont all home PO meds - Labetalol 200mg BID + Clonidone 0.3mg BID + Hydralazine 50mh TID inc Hydralazine to 75 mg TID cont Hydralazine IV PRN (6) CAD (coronary artery disease), [place] coronary artery Current Visit: No Status: Chronic Assessment and plan: resumed home meds Qualifiers: [place] vs. transplanted heart: [place] heart Associated angina: without angina Qualified Code(s): I25.10 - Atherosclerotic heart disease of [place] coronary artery without angina pectoris (7) Physical deconditioning Current Visit: Yes Status: Acute Assessment and plan: PT / OT working with her may need SNF / Swing bed placement for short term rehab - Subjective Interval history: Ms. Howard is a 77 year old female with history of diabetes, hypertension, COPD on home O2 dependent at 2 lit, left renal cancer S/P nephrectomy, presents to [place] emergency room for shortness of breath. Patient said she was admitted in hospital for pneumonia in June. After discharge, she feels weak and continuous having shortness of breath. Patient takes lasix previously but was discontinued later b/o concern for renal function. Pt has uncontrolled HTN and was placed on hydralazine 50mg po tid, which was also discontinued 4 days ago by [facility] ER with concern of side effects of weakness. Pt was admitted in the hospital placed her on monitoring coordinator and started on IV diuresis. Her symptoms started improving. She feels better now. Still on 3 lit O2. Denied any CP. Over all feeling better today.. Still has some cough. - Constitutional Vitals: Temp Pulse Resp BP Pulse Ox 98.0 F 62 15 154/62 98 08/14/17 07:17 08/14/17 07:17 08/14/17 07:17 08/14/17 07:17 08/14/17 07:17 General appearance: Present: A&O X 3, obese, answers questions appropriately - Head Head exam: Present: atraumatic, normal inspection - Neck Neck exam general surgery: Present: supple - Respiratory Respiratory exam: Present: decreased breath sounds, wheezes (mild). Absent: rales, respiratory distress, rhonchi - Cardiovascular Cardiovascular exam: Present: RRR, +S1, +S2. Absent: tachycardia - GI/Abdominal GI/Abdominal exam: Present: normal bowel sounds, soft. Absent: rebound, rigid, tenderness - Extremities Exam Extremities exam: Present: pedal edema (trace..improving). Absent: calf tenderness, tenderness - Back Exam Back exam: Absent: CVA tenderness (L), CVA tenderness (R) - Neurological Exam Neurological exam: Present: alert, oriented X3 - Skin Skin exam: Absent: rash Internal Medicine: Result - Labs CBC & Chem 7: 08/14/17 11:33 08/14/17 11:33 Labs: Short CBC 08/14/17 Range/Units 11:33 WBC 9.1 D (4.3-11.1) K/mcL Hgb 9.8 L (11.5-15.4) g/dL Hct 32.5 L (35.3-44.9) % Plt Count 198 (140-400) K/mcL Neutrophils # 6.9 (1.6-8.9) K/mcL BMP 08/14/17 11:33 Sodium 142 Potassium 2.9 L Chloride 99 Carbon Dioxide 35 H BUN 33 H Creatinine 1.41 H Glucose 164 H Calcium 8.2 L Consult Discharge Plan - Plan Referrals: Gisselle Jeffery, CLAIM INSPECTOR [Primary Care Provider] - 08/19/17 1:15 pm
[2017-08-15] MEDS: hydrALAZINE 25 MG TABLET PO SCH ×3 (00:33→16:52)
[2017-08-15] MEDS: Ipratropium/Albuterol Neb 3 ML IH SCH ×3 (04:19→16:02)
[2017-08-15 04:49] LABS: Calcium 8.3 mg/dL (8.6-10.3); Potassium 3.7 mEq/L (3.5-5.1)
[2017-08-15] MEDS: *HR* Heparin 5,000 UNIT/ML VIAL SQ SCH (05:54)
[2017-08-15 07:56] VITALS: BP 153/92
[2017-08-15] MEDS: predniSONE 20 MG TABLET PO SCH (08:54)
[2017-08-15] MEDS: cloNIDine HCl 0.1 MG TABLET PO SCH (08:54)
[2017-08-15] MEDS: Aspirin 81 MG TAB.CHEW PO SCH (08:54)
[2017-08-15] MEDS: Fluticasone Propionate Nasal 50 MCG/SPRAY BOTTLE NS SCH (08:55)
[2017-08-15] MEDS: Insulin LISPRO 300 UNITS/3 ML VIAL SQ SCH ×3 (08:55→16:55)
[2017-08-15] MEDS ORDERED: Azithromycin 250 MG TABLET PO SCH (09:00)
--- NOTE | 2017-08-15 11:03 | Discharge Summary ---
Date of Encounter: 08/15/17 Time of Encounter: 10:20 - Discharge Diagnosis (1) Acute diastolic congestive heart failure Priority: Primary Status: Acute (2) Acute and chronic respiratory failure with hypoxia Priority: Primary Status: Acute (3) COPD exacerbation Priority: Primary Status: Inactive (4) Elevated troponin Priority: Secondary Status: Inactive (5) Uncontrolled hypertension Priority: Secondary Status: Inactive (6) CAD (coronary artery disease), [place] coronary artery Priority: Secondary Status: Chronic Qualifiers: [place] vs. transplanted heart: [place] heart Associated angina: without angina Qualified Code(s): I25.10 - Atherosclerotic heart disease of [place] coronary artery without angina pectoris (7) Physical deconditioning Priority: Secondary Status: Acute - Discharge Medications Prescriptions: Furosemide [Lasix] 20 mg PO DAILY 30 Days tablet Hydralazine HCl 100 mg PO TID #90 tablet Home Medications: Labetalol [Trandate] 200 mg PO BID 05/30/15 [History] cloNIDine HCl [CloNIDine HCl] 0.3 mg PO BID #180 tablet 10/11/16 [Rx] Oxygen 2 l NS AD 10/22/16 [History] Allopurinol [Zyloprim 100 MG] 100 mg PO DAILY 01/16/17 [History] Albuterol Sulfate [Ventolin Hfa] 2 puff IH Q6H PRN 07/17/17 [History] Aspirin 81 mg PO BID 07/17/17 [History] Fluticasone Propionate Nasal [Flonase] 2 spr NS QAM 07/17/17 [History] Potassium Chloride [K-Tab ER] 10 meq PO BID 07/17/17 [History] Sertraline [Zoloft] 100 mg PO HS 07/17/17 [History] ALPRAZolam [Xanax 0.5 MG Tablet] 0.5 mg PO TID PRN 08/12/17 [History] Furosemide [Lasix] 40 mg PO DAILY 08/12/17 [History] Azithromycin [Zithromax] 250 mg PO DAILY 2 Days tablet 08/15/17 [Rx] GuaiFENesin/Dextromethorphan [Robitussin/Dm] 10 ml PO Q6HR PRN udc 08/15/17 [Rx ] Hydralazine HCl 100 mg PO TID #90 tablet 08/15/17 [Rx] Ipratropium/Albuterol Neb [Duoneb] 3 ml IH [id number] PRN inhsol 08/15/17 [Rx] Sennosides/Docusate Sodium [Senna Plus] 1 each PO BID PRN tablet 08/15/17 [Rx] predniSONE [PredniSONE] 30 mg PO DAILY #6 tablet 08/15/17 [Rx] Furosemide [Lasix] 20 mg PO DAILY 30 Days tablet 08/18/17 [Rx] Allergies/Adverse Reactions: 3 Allergy/AdvReac Type Severity Reaction Status Date / Time Amoxicillin Allergy Rash Verified 07/17/17 09:42 atorvastatin [From Lipitor] Allergy See Verified 07/17/17 09:42 Comments cefdinir [From Omnicef] Allergy Vomiting Verified 08/11/17 22:21 cephalexin [From Keflex] Allergy See Verified 07/17/17 09:42 Comments Cortisone Allergy Redness of Verified 08/11/17 22:20 Skin doxycycline Allergy See Verified 07/22/17 07:35 Comments Erythromycin Base Allergy Cramping Verified 08/11/17 22:21 of the Muscles iodine Allergy SHAKING Verified 07/17/17 09:42 levofloxacin [From Levaquin] Allergy LIP Verified 07/17/17 09:42 SWELLING sitagliptin [From Januvia] Allergy Difficulty Verified 07/17/17 09:42 Breathing sulfamethoxazole Allergy Rash Verified 07/17/17 09:42 [From Bactrim] trimethoprim [From Bactrim] Allergy Rash Verified 07/17/17 09:42 amlodipine [From Norvasc] AdvReac SEE COMMENT Verified 07/17/17 09:42 cefuroxime [From Ceftin] AdvReac MUSCLE Verified 07/17/17 09:42 CRAMPS enalaprilat [From Vasotec] AdvReac Cough Verified 08/11/17 22:17 fluoxetine [From Prozac] AdvReac SEE COMMENT Verified 07/17/17 09:42 metoprolol AdvReac Dizziness Verified 07/17/17 09:42 nifedipine AdvReac Headache Verified 07/17/17 09:42 nystatin AdvReac See Verified 08/11/17 22:21 Comments Oxycodone AdvReac Headache Verified 07/12/17 23:21 Paroxetine [From Paxil] AdvReac CHILLS AND Verified 07/17/17 09:42 ITCH Prazosin AdvReac TACHYCARDIA Verified 07/17/17 09:42 Saxagliptin [From Onglyza] AdvReac UNKNOWN Verified 07/17/17 09:42 PER PT sertraline [From Zoloft] AdvReac Hallucinati Verified 07/17/17 02:25 ng simvastatin [From Zocor] AdvReac MUSCLE Verified 07/17/17 09:42 WEAKNESS hydrin Allergy See Uncoded 08/11/17 22:20 Comments Date of admission: 08/12/17 04:28 Primary care physician: Gisselle Jeffery CNP Consults: 08/12/17 12:29 Consult to Physical Therapy [CONS] Routine Comment: Evaluate, develop and implement POC Reason for Consult: Weakness and SOB since previous admission 08/12/17 12:30 Consult to Occupational Therapy [CONS] Routine Comment: Evaluate, develop and implement POC Reason for Consult: Weakness and SOB since previous admission earlier this month 08/13/17 15:16 Consult to Agile Coach [CONS] Routine Reason for SW Consult: SNF placement - Patient Status Disposition: Transfer SNF Condition: Good Overall status at discharge: patient is back to baseline - Ambulatory Orders Ambulatory Orders: Basic Metabolic Panel [CHEM] Time Frame: 08/18/17, Facility: [facility], Location: Lab - Discharge Instructions Instructions: Heart Failure (DC), Calcium and Osteoporosis (DC), Diabetes Mellitus Type 2 in Adults (DC), Fall Prevention for Older Adults (GEN), Chronic Hypertension (DC), Anemia (GEN), Pneumonia (DC) Follow Up With: Gisselle Jeffery CNP [Primary Care Provider] - 08/19/17 1:15 pm Additional Instructions: Recommended to continue holding Lasix for another 2 days Please go for BMP on Friday, depending on Cr, you can resume her Lasix at 20mg pO daily. - Diet and Activity Activity: as per physical therapy, increase activity as tolerated, wear oxygen at all times Diet: low salt diet Hospital course: Ms. Howard is a 77 year old female with history of diabetes, hypertension, COPD on home O2 dependent at 2 lit, left renal cancer S/P nephrectomy, presents to [place] emergency room for shortness of breath. Patient said she was admitted in hospital for pneumonia in June. After discharge, she feels weak and continuous having shortness of breath. Patient takes lasix previously but was discontinued later b/o concern for renal function. Pt has uncontrolled HTN and was placed on hydralazine 50mg po tid, which was also discontinued 4 days ago by [facility] ER with concern of side effects of weakness. Pt was admitted in the hospital placed her on threat monitoring analyst and started on IV diuresis. Her symptoms started improving. She was also in acute COPD exacerbation mostly triggered by acute bronchitis She was started on systemic steroids, duoneb and empirical abx with Azithromycin. She feels better now. Still on 2.5 lit O2. She did have uncontrolled BP, we titrated her medication inc Hydralazine to 100mg TID and Continued Labetalol 200mg BID + Clonidine 0.3mg BID.. Held her lasix y/d since her Cr went up little bit, today her Cr came down to 1.3, so recommend to continue holding Lasix for another 2 days, go for BMP on Friday, depending on Cr, they can resume her Lasix at 20mg pO daily. I did discuss these instructions with the pt. - Time Spent with Patient Total time spent providing and/or coordinating discharge services: - Constitutional Vitals: Temp Pulse Resp BP Pulse Ox 97.8 F 91 18 153/92 97 08/15/17 07:47 08/15/17 07:47 08/15/17 07:47 08/15/17 07:47 08/15/17 07:47 General appearance: Present: A&O X 3, obese, answers questions appropriately - Head Head exam: Present: atraumatic, normal inspection - Respiratory Respiratory exam: Present: decreased breath sounds, wheezes (mild). Absent: respiratory distress, rhonchi - Cardiovascular Cardiovascular exam: Present: RRR, +S1, +S2. Absent: tachycardia - GI/Abdominal GI/Abdominal exam: Present: normal bowel sounds, soft. Absent: rebound, rigid, tenderness - Extremities Exam Extremities exam: Present: pedal edema (improved edema). Absent: calf tenderness, tenderness - Back Exam Back exam: Absent: CVA tenderness (L), CVA tenderness (R) - Neurological Exam Neurological exam: Present: alert, oriented X3 - Psychiatric Psychiatric exam: Present: normal affect, normal mood - Skin Skin exam: Absent: rash
--- NOTE | 2017-08-15 13:47 | Physician Discharge Referral ---
ExtendedCare Referral Info Transfer To: ECF / Swing bed Provider in Charge after Transfer: PCP Institutional Level of Care: Skilled - Diagnosis (1) Acute diastolic congestive heart failure Status: Acute (2) Acute and chronic respiratory failure with hypoxia Status: Acute (3) COPD exacerbation Status: Inactive (4) Elevated troponin Status: Inactive (5) Uncontrolled hypertension Status: Inactive (6) CAD (coronary artery disease), [place] coronary artery Status: Chronic (7) Physical deconditioning Status: Acute - Transfer Medications Prescriptions: Furosemide [Lasix] 20 mg PO DAILY 30 Days tablet Hydralazine HCl 100 mg PO TID #90 tablet Home Medications: Labetalol [Trandate] 200 mg PO BID 05/30/15 [History] cloNIDine HCl [CloNIDine HCl] 0.3 mg PO BID #180 tablet 10/11/16 [Rx] Oxygen 2 l NS AD 10/22/16 [History] Allopurinol [Zyloprim 100 MG] 100 mg PO DAILY 01/16/17 [History] Albuterol Sulfate [Ventolin Hfa] 2 puff IH Q6H PRN 07/17/17 [History] Aspirin 81 mg PO BID 07/17/17 [History] Fluticasone Propionate Nasal [Flonase] 2 spr NS QAM 07/17/17 [History] Potassium Chloride [K-Tab ER] 10 meq PO BID 07/17/17 [History] Sertraline [Zoloft] 100 mg PO HS 07/17/17 [History] ALPRAZolam [Xanax 0.5 MG Tablet] 0.5 mg PO TID PRN 08/12/17 [History] Furosemide [Lasix] 40 mg PO DAILY 08/12/17 [History] Azithromycin [Zithromax] 250 mg PO DAILY 2 Days tablet 08/15/17 [Rx] GuaiFENesin/Dextromethorphan [Robitussin/Dm] 10 ml PO Q6HR PRN udc 08/15/17 [Rx ] Hydralazine HCl 100 mg PO TID #90 tablet 08/15/17 [Rx] Ipratropium/Albuterol Neb [Duoneb] 3 ml IH [id number] PRN inhsol 08/15/17 [Rx] Sennosides/Docusate Sodium [Senna Plus] 1 each PO BID PRN tablet 08/15/17 [Rx] predniSONE [PredniSONE] 30 mg PO DAILY #6 tablet 08/15/17 [Rx] Furosemide [Lasix] 20 mg PO DAILY 30 Days tablet 08/18/17 [Rx] Allergies/Adverse Reactions: 3 Allergy/AdvReac Type Severity Reaction Status Date / Time Amoxicillin Allergy Rash Verified 07/17/17 09:42 atorvastatin [From Lipitor] Allergy See Verified 07/17/17 09:42 Comments cefdinir [From Omnicef] Allergy Vomiting Verified 08/11/17 22:21 cephalexin [From Keflex] Allergy See Verified 07/17/17 09:42 Comments Cortisone Allergy Redness of Verified 08/11/17 22:20 Skin doxycycline Allergy See Verified 07/22/17 07:35 Comments Erythromycin Base Allergy Cramping Verified 08/11/17 22:21 of the Muscles iodine Allergy SHAKING Verified 07/17/17 09:42 levofloxacin [From Levaquin] Allergy LIP Verified 07/17/17 09:42 SWELLING sitagliptin [From Januvia] Allergy Difficulty Verified 07/17/17 09:42 Breathing sulfamethoxazole Allergy Rash Verified 07/17/17 09:42 [From Bactrim] trimethoprim [From Bactrim] Allergy Rash Verified 07/17/17 09:42 amlodipine [From Norvasc] AdvReac SEE COMMENT Verified 07/17/17 09:42 cefuroxime [From Ceftin] AdvReac MUSCLE Verified 07/17/17 09:42 CRAMPS enalaprilat [From Vasotec] AdvReac Cough Verified 08/11/17 22:17 fluoxetine [From Prozac] AdvReac SEE COMMENT Verified 07/17/17 09:42 metoprolol AdvReac Dizziness Verified 07/17/17 09:42 nifedipine AdvReac Headache Verified 07/17/17 09:42 nystatin AdvReac See Verified 08/11/17 22:21 Comments Oxycodone AdvReac Headache Verified 07/12/17 23:21 Paroxetine [From Paxil] AdvReac CHILLS AND Verified 07/17/17 09:42 ITCH Prazosin AdvReac TACHYCARDIA Verified 07/17/17 09:42 Saxagliptin [From Onglyza] AdvReac UNKNOWN Verified 07/17/17 09:42 PER PT sertraline [From Zoloft] AdvReac Hallucinati Verified 07/17/17 02:25 ng simvastatin [From Zocor] AdvReac MUSCLE Verified 07/17/17 09:42 WEAKNESS hydrin Allergy See Uncoded 08/11/17 22:20 Comments - Respiratory Orders Smoking Cessation: Smoking cessation has been advised. For more information, call the [place] Tobacco Quit Line at 6-204-YRUF-NOW. CERTIFICATION: I certify that the transfer of the above named patient to an Extended Care Facility is necessary for the continuing treatment of the diagnosis listed. The above information is true and accurate reflection of patient's current condition. Confidential - Redisclosure prohibited without a patient's written consent.
== END 2017-08-15 18:25 | DRG 291 ==
LOC: 2NENU
PROVIDERS: ADMIT Internal Medicine; ATTEND Family Medicine

== ENCOUNTER 2018-04-05 19:21 | Observation (INO) ==
--- NOTE | 2018-04-05 19:42 | Emergency Department Note ---
Disposition Clinical Impression: Weakness, Shortness of breath, Hypertensive urgency Disposition: Admitted As Inpatient Condition: Fair Referrals: Rita Zhao CNP [Primary Care Provider] - Forms: ED Satisfaction Letter General Adult HPI - General Chief complaint: ED Shortness of Breath/Dyspnea Stated complaint: BHARGAVI Time Seen by Provider: 04/05/18 19:25 Source: patient Mode of arrival: EMS Limitations: other Nursing Notes Reviewed: Yes Vital Signs Reviewed: Yes - History of Present Illness HPI Narrative: 78-year-old female with a history of hypertension who presents to the ER with a complaint of "numbness all over and shortness of breath". The patient states she went to her daughter's house earlier today. She then started developing shortness of breath. She is an incredibly poor historian. EMS was called and the patient was brought in for evaluation. She reports that she felt numb all over like she could not move. She had no focal deficits then. States it was difficult to open her eyes. No prior history of stroke. She is not on any anticoagulation that she is aware of. She had no chest pain. Has a little bit shortness of breath. No cough. No other complaints. Pt Subjective Complaint: Shortness of breath, numbness all over Onset (ago): hour(s) Pain Scale: 0 Improves with: nothing Worsens with: nothing Associated symptoms: Reports: shortness of breath. Denies: chest pain, headaches Treatments Prior to Arrival: none - Related Data Home Medications Medication Instructions Recorded Confirmed Oxygen 2 l NS AD 10/22/16 02/12/18 Fluticasone Propionate Nasal 2 spr NS QAM 07/17/17 02/12/18 [Flonase] Cholecalciferol (D-3) [Vitamin D] 1,000 unit PO DAILY 09/11/17 02/12/18 Sertraline [Zoloft] 50 mg PO DAILY 09/11/17 02/12/18 Bumetanide 0.5 mg PO DAILY 11/11/17 02/12/18 Promethazine HCl 12.5 mg PO Q6H PRN 11/11/17 02/12/18 Previous Rx's Medication Instructions Recorded Allopurinol [Zyloprim 100 MG] 100 mg PO DAILY #30 tablet 08/28/17 Ascorbic Acid [Vitamin C] 500 mg PO DAILY@0630 #30 tablet 08/28/17 Aspirin 81 mg PO DAILY #0 08/28/17 Cyanocobalamin (B-12) [Vitamin B12] 1,000 mcg PO DAILY #30 tablet 08/28/17 Ferrous Sulfate 325 mg PO DAILY@0630 #30 tablet 08/28/17 Hydralazine HCl 100 mg PO TID #90 tablet 08/28/17 Labetalol [Trandate] 200 mg PO BID #120 tablet 08/28/17 Magnesium Oxide [Mag-Ox] 400 mg PO DAILY #7 tablet 08/28/17 cloNIDine HCl [Clonidine HCl] 0.6 mg PO Q8H #180 tab 08/28/17 Pantoprazole Sodium [Protonix] 40 mg PO DAILY 7 Days #7 tablet.dr 11/14/17 Potassium Chloride [K-Tab ER] 40 meq PO BID 14 Days #28 tablet.er 11/14/17 Sennosides/Docusate Sodium [Senna 2 each PO BID 14 Days #56 tablet 11/14/17 Plus] Nitrofurantoin (BID) [Macrobid] 100 mg PO BID #14 capsule 02/22/18 Allergies Allergy/AdvReac Type Severity Reaction Status Date / Time Amoxicillin Allergy Rash Verified 02/22/18 10:35 atorvastatin [From Lipitor] Allergy See Verified 02/22/18 10:35 Comments cefdinir [From Omnicef] Allergy Vomiting Verified 02/22/18 10:35 cephalexin [From Keflex] Allergy See Verified 02/22/18 10:35 Comments Cortisone Allergy Redness of Verified 02/22/18 10:35 Skin doxycycline Allergy See Verified 02/22/18 10:35 Comments Erythromycin Base Allergy Cramping Verified 02/22/18 10:35 of the Muscles iodine Allergy SHAKING Verified 02/22/18 10:35 levofloxacin [From Levaquin] Allergy LIP Verified 02/22/18 10:35 SWELLING sitagliptin [From Januvia] Allergy Difficulty Verified 02/22/18 10:35 Breathing sulfamethoxazole Allergy Rash Verified 02/22/18 10:35 [From Bactrim] trimethoprim [From Bactrim] Allergy Rash Verified 02/22/18 10:35 amlodipine [From Norvasc] AdvReac SEE COMMENT Verified 02/22/18 10:35 cefuroxime [From Ceftin] AdvReac MUSCLE Verified 02/22/18 10:35 CRAMPS enalaprilat [From Vasotec] AdvReac Cough Verified 02/22/18 10:35 fluoxetine [From Prozac] AdvReac SEE COMMENT Verified 02/22/18 10:35 isosorbide [From Imdur] AdvReac Rash Verified 02/22/18 10:35 metoprolol AdvReac Dizziness Verified 02/22/18 10:35 nifedipine AdvReac Headache Verified 02/22/18 10:35 nystatin AdvReac See Verified 02/22/18 10:35 Comments Oxycodone AdvReac Headache Verified 02/22/18 10:35 Paroxetine [From Paxil] AdvReac CHILLS AND Verified 02/22/18 10:35 ITCH Prazosin AdvReac TACHYCARDIA Verified 02/22/18 10:35 Saxagliptin [From Onglyza] AdvReac UNKNOWN Verified 02/22/18 10:35 PER PT simvastatin [From Zocor] AdvReac MUSCLE Verified 02/22/18 10:35 WEAKNESS hydrin Allergy See Uncoded 02/22/18 10:35 Comments All systems ED: reviewed and negative except as stated. Constitutional: Denies: fever Cardiovascular: Denies: chest pain Respiratory: Reports: dyspnea. Denies: cough Gastrointestinal: Denies: abdominal pain, nausea, vomiting Neurological: Reports: numbness. Denies: headache, weakness Past Medical History - Past Medical History Attestation: Yes The following information was validated with the patient. Source: patient Medical history: Reports: COPD, diabetes, hypertension Surgical history: Reports: knee replacement Psychiatric history: Reports: anxiety, depression PERSONAL COMPANION history: Reports: no PERSONAL COMPANION history - Social History Smoking Status: Never smoker Smokeless Tobacco Status: No Alcohol use: Reports: none Drug use: Reports: none Physical Exam - General Limitations: no limitations General appearance: alert, in no apparent distress - Head Head exam: atraumatic, normocephalic, normal inspection - Eye Eye exam: Present: normal appearance, PERRL, EOMI - ENT ENT exam: normal exam - Neck Neck exam: Present: normal inspection - Chest Chest inspection: Present: normal inspection, symmetric chest wall rise - Respiratory Respiratory exam: Present: normal lung sounds bilaterally - Cardiovascular Cardiovascular exam: Present: regular rate, normal rhythm, normal heart sounds - Abdominal Exam Abdominal exam: Present: soft, Non-Tender. Absent: tenderness, distention, rigidity - Extremities Exam Extremities exam: Present: normal inspection, full ROM - Expanded Upper Extremity Exam Shoulder exam: Present: normal inspection, full ROM Arm exam: Present: normal inspection, full ROM Elbow exam: Present: normal inspection, full ROM Forearm/Wrist exam: Present: normal inspection, full ROM Hand exam: Present: normal inspection, full ROM Vascular exam: Normal: radial pulse - Expanded Lower Extremity Exam Hip/Pelvis exam: Present: normal inspection, full ROM Upper leg exam: Present: normal inspection, full ROM Knee exam: Present: normal inspection, full ROM Lower leg exam: Present: normal inspection, full ROM Ankle exam: Present: normal inspection, full ROM Foot/toe exam: Present: normal inspection, full ROM Neurovascular/Tendon exam: Absent: motor deficit, sensory deficit - Neurological Exam Neurological exam: Present: alert, CN II-XII intact - Expanded Neurological Exam Speech: Present: fluid speech Cranial nerves: EOM function (II, III, IV, ): Normal, facial sensation (V): Normal, spinal accessory function (XI): Normal, tongue deviation (XII): Normal Motor strength - LUE: 4/5 Motor strength - RUE: 4/5 Motor strength - LLE: 4/5 Motor strength - RLE: 4/5 Sensory exam upper extremity: light touch: Normal Sensory exam lower extremity: light touch: Normal Coma Scale Eye Opening: Spontaneous Coma Scale Motor Response: Obeys Commands Coma Scale Verbal Response: Oriented Coma Scale Total: 15 - Skin Skin exam: Present: warm, dry Course Course Narrative: Patient seen and examined. Vital signs reviewed. Plan for EKG, chest x-ray, CT head, labs. Plan for hydralazine for hypertension. - Reevaluation(s) Reevaluation #1: Discussed findings with patient. She reports mild improvement in her breathing. She still has sensation of numbness and generalized weakness. Vital Signs Temperature 98.3 F 04/05/18 19:25 Pulse Rate 60 04/05/18 19:25 Respiratory Rate 22 04/05/18 19:25 Blood Pressure 202/103 04/05/18 19:25 O2 Sat by Pulse Oximetry 100 04/05/18 19:25 Temperature 98.3 F 04/05/18 19:25 Pulse Rate 64 04/05/18 21:03 Respiratory Rate 16 04/05/18 21:03 Blood Pressure 174/63 04/05/18 21:03 O2 Sat by Pulse Oximetry 99 04/05/18 21:03 Oxygen Delivery Oxygen Delivery Room Air[facility]Located Within [facility] Medical Decision Making - MDM Narrative Medical decision making narrative: 70-year-old female presents for shortness of breath as well as numbness and weakness. No focal distribution. Was noted to be hypertensive upon arrival which was improved with intervention. Her symptoms have mildly improved however she remains numb and weak. The patient is admitted to the hospitalist service in stable condition. - Lab Data Lab results reviewed: Yes I reviewed the patient's lab results. Result diagrams: 04/05/18 19:45 04/05/18 19:45 Lab Results 04/05/18 04/05/18 04/05/18 Range/Units 19:45 19:45 19:45 WBC 6.5 (4.3-11.1) K/mcL RBC 3.72 L (3.82-4.97) M/mcL Hgb 11.2 L (11.5-15.4) g/dL Hct 33.6 L (35.3-44.9) % MCV 90.3 (83.0-100.0) fL MCH 30.1 (28.0-33.3) pg MCHC 33.3 (31.6-35.5) g/dL RDW 14.3 (11.5-14.5) % Plt Count 142 (140-400) K/mcL MPV 10.9 (9.4-12.4) fL Immature Gran % 0.2 (0-4) % Seg Neutrophils % 58.3 % Lymphocytes % 30.8 % Monocytes % 7.6 % Eosinophils % 2.5 % Basophils % 0.6 % Neutrophils # 3.8 (1.6-8.9) K/mcL Lymphocytes # 2.0 (0.6-4.6) K/mcL Monocytes # 0.5 (0.0-1.3) K/mcL Eosinophils # 0.2 (0.0-0.6) K/mcL Basophils # 0.0 (0.0-0.2) K/mcL PT 11.2 (9.4-12.1) Seconds INR 1.0 Sodium 140 (136-145) mEq/L Potassium 3.4 L (3.5-5.1) mEq/L Chloride 103 (98-107) mEq/L Carbon Dioxide 27 (23-29) mEq/L BUN 18 (8-23) mg/dL Creatinine 1.47 H (0.60-1.20) mg/dL Est GFR ( Amer) 42 L (> 60) Est GFR (Non-Af Amer) 34 L (> 60) BUN/Creatinine Ratio 12 (6-26) Glucose 118 H (70-105) mg/dL Calculated Osmolality 293 (280-300) Calcium 9.3 (8.6-10.3) mg/dL Troponin I < 0.03 (< 0.04) ng/mL B-Natriuretic Peptide (Less than 100) pg/mL Urine Color (Yellow) Urine Clarity (Clear) Urine pH (5.0-8.0) pH Units Ur Specific [place] (1.010-1.025) Urine Protein (Neg-Trace) mg/dL Urine Glucose (UA) (Normal) mg/dL Urine Ketones (Negative) mg/dL Urine Blood (Negative) Urine Nitrite (Negative) Urine Bilirubin (Negative) Urine Urobilinogen (Normal) mg/dL Ur Leukocyte Esterase (Negative) Urine Microscopic RBC (0-3) per hpf Urine Microscopic WBC (0-3) per hpf Ur Squamous Epith Cells (None-Few) per lpf Urine Bacteria (None-Few) per hpf Hyaline Casts (None-Few) per lpf Ur Culture Indicated? (NO) 04/05/18 04/05/18 Range/Units 19:45 Unknown WBC (4.3-11.1) K/mcL RBC (3.82-4.97) M/mcL Hgb (11.5-15.4) g/dL Hct (35.3-44.9) % MCV (83.0-100.0) fL MCH (28.0-33.3) pg MCHC (31.6-35.5) g/dL RDW (11.5-14.5) % Plt Count (140-400) K/mcL MPV (9.4-12.4) fL Immature Gran % (0-4) % Seg Neutrophils % % Lymphocytes % % Monocytes % % Eosinophils % % Basophils % % Neutrophils # (1.6-8.9) K/mcL Lymphocytes # (0.6-4.6) K/mcL Monocytes # (0.0-1.3) K/mcL Eosinophils # (0.0-0.6) K/mcL Basophils # (0.0-0.2) K/mcL PT (9.4-12.1) Seconds INR Sodium (136-145) mEq/L Potassium (3.5-5.1) mEq/L Chloride (98-107) mEq/L Carbon Dioxide (23-29) mEq/L BUN (8-23) mg/dL Creatinine (0.60-1.20) mg/dL Est GFR ( Amer) (> 60) Est GFR (Non-Af Amer) (> 60) BUN/Creatinine Ratio (6-26) Glucose (70-105) mg/dL Calculated Osmolality (280-300) Calcium (8.6-10.3) mg/dL Troponin I (< 0.04) ng/mL B-Natriuretic Peptide 220 H (Less than 100) pg/mL Urine Color Yellow (Yellow) Urine Clarity Clear (Clear) Urine pH 7.5 (5.0-8.0) pH Units Ur Specific [place] < 1.005 L (1.010-1.025) Urine Protein Trace (Neg-Trace) mg/dL Urine Glucose (UA) Normal (Normal) mg/dL Urine Ketones Negative (Negative) mg/dL Urine Blood Negative (Negative) Urine Nitrite Negative (Negative) Urine Bilirubin Negative (Negative) Urine Urobilinogen Normal (Normal) mg/dL Ur Leukocyte Esterase Negative (Negative) Urine Microscopic RBC 0-3 (0-3) per hpf Urine Microscopic WBC 0-3 (0-3) per hpf Ur Squamous Epith Cells Many H (None-Few) per lpf Urine Bacteria None Seen (None-Few) per hpf Hyaline Casts None Seen (None-Few) per lpf Ur Culture Indicated? NO (NO) - Radiology Data Radiology results reviewed: Yes I reviewed the patient's radiology results. Chest X-Ray 04/05/18 19:26 IMPRESSION: 1. Chronic appearing coarse interstitial densities predominate parahilar regions and lung bases, typical of sequela from smoking or other previous infectious/inflammatory process. 2. Sequela from old granulomatous disease. 3. Calcific atherosclerosis aorta. 4. Cardiomegaly. 5. No appreciable change from prior study D/ / Je Ralph / Je Ralph Interpreting Provider: Je Ralph - EKG Data EKG #1 EKG attestation: Yes I reviewed and interpreted this EKG. EKG results narrative: EKG demonstrates sinus rhythm. Normal axis. Normal intervals. Normal R-wave progression. No gross ST elevations or depressions. No acute ischemic findings. S.Jesica - Ana M Situation: Demographics, MOA Background: Presenting Complaint, Relevant PMH, Meds, & Allergies Assessment: Vital Signs, Course and respsone to treatment, Exam Concerns, Patient/Family Expectation, Pertinant Lab Results, Outstanding Labs Recommendation: Barrier(s) to disposition, Recommendation based on pending studies, treatments, or consults S.B.Dora Report Given to: Dr. Maribeth Viramontes Repor Time: 21:34 Attestation Statement - Attestation Attestation: I, Rhys Gore DO, examined this patient [id number] and my medical decision-making was reviewed with Dr. Patrick Gomez, Resident Physician. I agree with the documented findings, disposition and treatment plan as described except to the extent set forth below. Please see my progress notes for details.
[2018-04-05 19:55] LABS: Bilirubin,Urine Negative (Negative); Blood,Urine Negative (Negative); Clarity,Urine Clear (Clear); Color,Urine Yellow (Yellow); Glucose,Urine (UA) Normal (Normal); Ketones,Urine Negative (Negative); Leukocyte Esterase,Urine Negative (Negative); Nitrite,Urine Negative (Negative); PH,Urine 7.5 pH Units (5.0-8.0); Protein,Urine Trace mg/dL (Neg-Trace); Specific Gravity,Urine < 1.005 (1.010-1.025); Urobilinogen,Urine Normal (Normal)
[2018-04-05 19:56] LABS: Bacteria,Urine None Seen per hpf (None-Few); Hyaline Casts,Urine None Seen per lpf (None-Few); RBC,Urine 0-3 per hpf (0-3); Squamous Epithelial Cell,Urine Many per lpf (None-Few); WBC,Urine 0-3 per hpf (0-3)
[2018-04-05 20:02] LABS: Basophils % 0.6 %; Eosinophils # 0.2 K/mcL (0.0-0.6); Eosinophils % 2.5 %; Hematocrit 33.6 % (35.3-44.9); Hemoglobin 11.2 g/dL (11.5-15.4); Immature Granulocytes % 0.2 % (0-4); Lymphocytes % 30.8 %; Mean Corpuscular HGB Conc 33.3 g/dL (31.6-35.5); Mean Corpuscular Hemoglobin 30.1 pg (28.0-33.3); Mean Corpuscular Volume 90.3 fL (83.0-100.0); Mean Platelet Volume 10.9 fL (9.4-12.4); Monocytes # 0.5 K/mcL (0.0-1.3); Monocytes % 7.6 %; Neutrophils # 3.8 K/mcL (1.6-8.9); Platelet Count 142 K/mcL (140-400); Red Blood Count 3.72 M/mcL (3.82-4.97); Red Cell Distribution Width 14.3 % (11.5-14.5); Segmented Neutrophils % 58.3 %
[2018-04-05 20:07] LABS: Prothrombin Time 11.2 Seconds (9.4-12.1)
[2018-04-05 20:25] LABS: BUN/Creatinine Ratio 12 (6-26); Blood Urea Nitrogen 18 mg/dL (8-23); Calcium 9.3 mg/dL (8.6-10.3); Carbon Dioxide 27 mEq/L (23-29); Chloride 103 mEq/L (98-107); Glucose 118 mg/dL (70-105); Osmolality,Calculated 293 (280-300); Potassium 3.4 mEq/L (3.5-5.1); Sodium 140 mEq/L (136-145); Troponin I < 0.03 ng/mL (< 0.04); eGFR For Non-African Americans 34 (> 60)
--- NOTE | 2018-04-05 20:42 | Emergency Department Note ---
Disposition Clinical Impression: Weakness, Shortness of breath Disposition: Admitted As Inpatient Condition: Fair Referrals: Rita Zhao CNP [Primary Care Provider] - Forms: ED Satisfaction Letter Time of Disposition: 21:28 General Adult HPI - General Chief complaint: ED Shortness of Breath/Dyspnea Stated complaint: BHARGAVI Time Seen by Provider: 04/05/18 19:25 Source: patient Mode of arrival: EMS Limitations: no limitations - History of Present Illness Pain Scale: 0 Improves with: nothing Worsens with: nothing Associated symptoms: Reports: shortness of breath. Denies: chest pain, headaches Treatments Prior to Arrival: none - Related Data Home Medications Medication Instructions Recorded Confirmed Oxygen 2 l NS AD 10/22/16 02/12/18 Fluticasone Propionate Nasal 2 spr NS QAM 07/17/17 02/12/18 [Flonase] Cholecalciferol (D-3) [Vitamin D] 1,000 unit PO DAILY 09/11/17 02/12/18 Sertraline [Zoloft] 50 mg PO DAILY 09/11/17 02/12/18 Bumetanide 0.5 mg PO DAILY 11/11/17 02/12/18 Promethazine HCl 12.5 mg PO Q6H PRN 11/11/17 02/12/18 Previous Rx's Medication Instructions Recorded Allopurinol [Zyloprim 100 MG] 100 mg PO DAILY #30 tablet 08/28/17 Ascorbic Acid [Vitamin C] 500 mg PO DAILY@0630 #30 tablet 08/28/17 Aspirin 81 mg PO DAILY #0 08/28/17 Cyanocobalamin (B-12) [Vitamin B12] 1,000 mcg PO DAILY #30 tablet 08/28/17 Ferrous Sulfate 325 mg PO DAILY@0630 #30 tablet 08/28/17 Hydralazine HCl 100 mg PO TID #90 tablet 08/28/17 Labetalol [Trandate] 200 mg PO BID #120 tablet 08/28/17 Magnesium Oxide [Mag-Ox] 400 mg PO DAILY #7 tablet 08/28/17 cloNIDine HCl [Clonidine HCl] 0.6 mg PO Q8H #180 tab 08/28/17 Pantoprazole Sodium [Protonix] 40 mg PO DAILY 7 Days #7 tablet.dr 11/14/17 Potassium Chloride [K-Tab ER] 40 meq PO BID 14 Days #28 tablet.er 11/14/17 Sennosides/Docusate Sodium [Senna 2 each PO BID 14 Days #56 tablet 11/14/17 Plus] Nitrofurantoin (BID) [Macrobid] 100 mg PO BID #14 capsule 02/22/18 Allergies Allergy/AdvReac Type Severity Reaction Status Date / Time Amoxicillin Allergy Rash Verified 02/22/18 10:35 atorvastatin [From Lipitor] Allergy See Verified 02/22/18 10:35 Comments cefdinir [From Omnicef] Allergy Vomiting Verified 02/22/18 10:35 cephalexin [From Keflex] Allergy See Verified 02/22/18 10:35 Comments Cortisone Allergy Redness of Verified 02/22/18 10:35 Skin doxycycline Allergy See Verified 02/22/18 10:35 Comments Erythromycin Base Allergy Cramping Verified 02/22/18 10:35 of the Muscles iodine Allergy SHAKING Verified 02/22/18 10:35 levofloxacin [From Levaquin] Allergy LIP Verified 02/22/18 10:35 SWELLING sitagliptin [From Januvia] Allergy Difficulty Verified 02/22/18 10:35 Breathing sulfamethoxazole Allergy Rash Verified 02/22/18 10:35 [From Bactrim] trimethoprim [From Bactrim] Allergy Rash Verified 02/22/18 10:35 amlodipine [From Norvasc] AdvReac SEE COMMENT Verified 02/22/18 10:35 cefuroxime [From Ceftin] AdvReac MUSCLE Verified 02/22/18 10:35 CRAMPS enalaprilat [From Vasotec] AdvReac Cough Verified 02/22/18 10:35 fluoxetine [From Prozac] AdvReac SEE COMMENT Verified 02/22/18 10:35 isosorbide [From Imdur] AdvReac Rash Verified 02/22/18 10:35 metoprolol AdvReac Dizziness Verified 02/22/18 10:35 nifedipine AdvReac Headache Verified 02/22/18 10:35 nystatin AdvReac See Verified 02/22/18 10:35 Comments Oxycodone AdvReac Headache Verified 02/22/18 10:35 Paroxetine [From Paxil] AdvReac CHILLS AND Verified 02/22/18 10:35 ITCH Prazosin AdvReac TACHYCARDIA Verified 02/22/18 10:35 Saxagliptin [From Onglyza] AdvReac UNKNOWN Verified 02/22/18 10:35 PER PT simvastatin [From Zocor] AdvReac MUSCLE Verified 02/22/18 10:35 WEAKNESS hydrin Allergy See Uncoded 02/22/18 10:35 Comments Constitutional: Denies: fever Cardiovascular: Denies: chest pain Respiratory: Reports: dyspnea. Denies: cough Gastrointestinal: Denies: abdominal pain, nausea, vomiting Neurological: Reports: numbness. Denies: headache, weakness Past Medical History - Past Medical History Medical history: Reports: COPD, diabetes, hypertension Surgical history: Reports: knee replacement Psychiatric history: Reports: anxiety, depression [employer] history: Reports: no [employer] history - Social History Smoking Status: Never smoker Smokeless Tobacco Status: No Alcohol use: Reports: none Drug use: Reports: none Physical Exam - General Limitations: no limitations General appearance: alert, in no apparent distress Course Vital Signs Temperature 98.3 F 04/05/18 19:25 Pulse Rate 60 04/05/18 19:25 Respiratory Rate 22 04/05/18 19:25 Blood Pressure 202/103 04/05/18 19:25 O2 Sat by Pulse Oximetry 100 04/05/18 19:25 Temperature 98.3 F 04/05/18 19:25 Pulse Rate 64 04/05/18 21:03 Respiratory Rate 16 04/05/18 21:03 Blood Pressure 174/63 04/05/18 21:03 O2 Sat by Pulse Oximetry 99 04/05/18 21:03 Oxygen Delivery Oxygen Delivery Room Air,[facility] Medical Decision Making - Lab Data Result diagrams: 04/05/18 19:45 04/05/18 19:45 Lab Results 04/05/18 04/05/18 04/05/18 Range/Units 19:45 19:45 19:45 WBC 6.5 (4.3-11.1) K/mcL RBC 3.72 L (3.82-4.97) M/mcL Hgb 11.2 L (11.5-15.4) g/dL Hct 33.6 L (35.3-44.9) % MCV 90.3 (83.0-100.0) fL MCH 30.1 (28.0-33.3) pg MCHC 33.3 (31.6-35.5) g/dL RDW 14.3 (11.5-14.5) % Plt Count 142 (140-400) K/mcL MPV 10.9 (9.4-12.4) fL Immature Gran % 0.2 (0-4) % Seg Neutrophils % 58.3 % Lymphocytes % 30.8 % Monocytes % 7.6 % Eosinophils % 2.5 % Basophils % 0.6 % Neutrophils # 3.8 (1.6-8.9) K/mcL Lymphocytes # 2.0 (0.6-4.6) K/mcL Monocytes # 0.5 (0.0-1.3) K/mcL Eosinophils # 0.2 (0.0-0.6) K/mcL Basophils # 0.0 (0.0-0.2) K/mcL PT 11.2 (9.4-12.1) Seconds INR 1.0 Sodium 140 (136-145) mEq/L Potassium 3.4 L (3.5-5.1) mEq/L Chloride 103 (98-107) mEq/L Carbon Dioxide 27 (23-29) mEq/L BUN 18 (8-23) mg/dL Creatinine 1.47 H (0.60-1.20) mg/dL Est GFR ( Amer) 42 L (> 60) Est GFR (Non-Af Amer) 34 L (> 60) BUN/Creatinine Ratio 12 (6-26) Glucose 118 H (70-105) mg/dL Calculated Osmolality 293 (280-300) Calcium 9.3 (8.6-10.3) mg/dL Troponin I < 0.03 (< 0.04) ng/mL B-Natriuretic Peptide (Less than 100) pg/mL Urine Color (Yellow) Urine Clarity (Clear) Urine pH (5.0-8.0) pH Units Ur Specific [place] (1.010-1.025) Urine Protein (Neg-Trace) mg/dL Urine Glucose (UA) (Normal) mg/dL Urine Ketones (Negative) mg/dL Urine Blood (Negative) Urine Nitrite (Negative) Urine Bilirubin (Negative) Urine Urobilinogen (Normal) mg/dL Ur Leukocyte Esterase (Negative) Urine Microscopic RBC (0-3) per hpf Urine Microscopic WBC (0-3) per hpf Ur Squamous Epith Cells (None-Few) per lpf Urine Bacteria (None-Few) per hpf Hyaline Casts (None-Few) per lpf Ur Culture Indicated? (NO) 04/05/18 04/05/18 Range/Units 19:45 Unknown WBC (4.3-11.1) K/mcL RBC (3.82-4.97) M/mcL Hgb (11.5-15.4) g/dL Hct (35.3-44.9) % MCV (83.0-100.0) fL MCH (28.0-33.3) pg MCHC (31.6-35.5) g/dL RDW (11.5-14.5) % Plt Count (140-400) K/mcL MPV (9.4-12.4) fL Immature Gran % (0-4) % Seg Neutrophils % % Lymphocytes % % Monocytes % % Eosinophils % % Basophils % % Neutrophils # (1.6-8.9) K/mcL Lymphocytes # (0.6-4.6) K/mcL Monocytes # (0.0-1.3) K/mcL Eosinophils # (0.0-0.6) K/mcL Basophils # (0.0-0.2) K/mcL PT (9.4-12.1) Seconds INR Sodium (136-145) mEq/L Potassium (3.5-5.1) mEq/L Chloride (98-107) mEq/L Carbon Dioxide (23-29) mEq/L BUN (8-23) mg/dL Creatinine (0.60-1.20) mg/dL Est GFR ( Amer) (> 60) Est GFR (Non-Af Amer) (> 60) BUN/Creatinine Ratio (6-26) Glucose (70-105) mg/dL Calculated Osmolality (280-300) Calcium (8.6-10.3) mg/dL Troponin I (< 0.04) ng/mL B-Natriuretic Peptide 220 H (Less than 100) pg/mL Urine Color Yellow (Yellow) Urine Clarity Clear (Clear) Urine pH 7.5 (5.0-8.0) pH Units Ur Specific [place] < 1.005 L (1.010-1.025) Urine Protein Trace (Neg-Trace) mg/dL Urine Glucose (UA) Normal (Normal) mg/dL Urine Ketones Negative (Negative) mg/dL Urine Blood Negative (Negative) Urine Nitrite Negative (Negative) Urine Bilirubin Negative (Negative) Urine Urobilinogen Normal (Normal) mg/dL Ur Leukocyte Esterase Negative (Negative) Urine Microscopic RBC 0-3 (0-3) per hpf Urine Microscopic WBC 0-3 (0-3) per hpf Ur Squamous Epith Cells Many H (None-Few) per lpf Urine Bacteria None Seen (None-Few) per hpf Hyaline Casts None Seen (None-Few) per lpf Ur Culture Indicated? NO (NO) Attestation Statement - Attestation Attestation: I, Rhys Gore DO, examined this patient [id number] and my medical decision-making was reviewed with Dr. Patrick Gomez, Resident Physician. I agree with the documented findings, disposition and treatment plan as described except to the extent set forth below. Please see my progress notes for details. 78-year-old female presents emergency room complaining of shortness of breath and generalized malaise. Patient said the symptoms for several days now. Progressively gotten worse according to her. She denies any fevers or chills denies any chest pain headache vision changes nausea vomiting or diarrhea. Patient says that she feels so weak that she is unable to use her arms or legs. She denies any trauma or injury. Patient was not hypoxic and transport. She is alert she is or issue speaking full sentences. Vital signs are reviewed and are stable on presentation. EMS had no abnormalities during transport. Patient is sitting in the bed speaking full sentences she has a normal- appearing head she has pupils are equal round reactive extraocular muscles are intact her oropharynx is patent. Trachea is midline. Her lungs are clear to auscultation in all 4 listing witt are heart is regular. Her abdomen is soft nontender nondistended no guarding no rigidity no peritoneal symptoms of this time. Patient moves her extremities without any difficulty but does describe generalized weakness. She has normal neuromotor function complaint of the weakness patient does require cardiac evaluation along with medication for her respiratory related issues. Patient is going to be provided with chest x-ray CBC chemistry EKG troponin and BNP. Symptomatically control along with breathing treatments and steroids will be added on. Patient is otherwise clinically stable. Disposition pending the full workup and treatment course. See detailed documentation of the physical exam, medical intervention, medical decision-making and disposition in the resident physician's note. No critical care provider the patient's treatment course at this time 2124 Patient is still generally weak. The imaging modalities as well as workup appear to be unremarkable this time onset of the patient is unable to get up and take care of herself. Patient does live by herself in attempts to take care of Jaya ask of daily living at home. Patient will be admitted for symptomatically control observation and reevaluation. No other acute concerns or issues are noted this time. Patient is unable to care for herself at home at this point. Contacted the understand that. Patient will be admitted for definitive management. Patient will be observed here in the emergency room to the admission process is completed
--- NOTE | 2018-04-05 23:02 | Internal Med History&Physical ---
Date of Encounter: 04/05/18 Time of Encounter: 22:56 Internal Medicine - H&P: HPI Chief complaint: weakness Admitted From: Home Plans for Post Hospital Care: Home History of present illness: Ms. Howard is a 78 year old female who on review of old records is seen to have a PMH of CHFpEF, COPD, HTN, CKD III with solitary kidney, COPD, HLD, Chronic resp failure on home O2; last admitted here for acute diverticulitis a few months ago. She presents now brought in by her sister with the complaint of generalized weakness and numbness. It is reported that for the past week she has progressively been feeling unwell and is scheduled for outpatient endoscopy and colonoscopy in this coming week due to bloating and abdominal pain. However today she states she became acutely weak and somewhat short of breath, feeling a tingling sensation all over her body and was unable to stand up to ambulate due to fatigue. There were no focal deficits at any time. She denied any prior trauma. As per EMS there were no abnormalities noted en route and on arrival the patient was alert and able to speak in full sentences. She was found to have a blood pressure systolic of 220mmHg and was given 5mg hydralazine IVP. Her physical exam was benign. Her lab work was grossly unrevealing except a potassium level of 3.4. EKG showed no ischemic changes and a head CT obtained was reported as follows: Small vessel chronic ischemic changes without acute hemorrhage or definite evidence for acute ischemia. Small areas of acute ischemia cannot be excluded. Given the benign nature of her findings and improvement in her blood pressure, it was recommended she be discharged from the ER and follow up as an outpatient however she continued to report fatigue and an inability to ambulate because of this while her sister who was present stated she will not be able to take her home and care for her stating that the patient lives alone. For this reason she is admitted under observation status and case management assistance with disposition. Past Med Surg Social Fam HX - Past Medical History Medical history: COPD, diabetes, hypertension Additional medical history: Kidney cancer Psychiatric history: anxiety, depression - Past Surgical History Surgical History: knee replacement Additional surgical history: Left nephrectomy. Left knee replacement. Left femur plate - Social History Smoking Status: Never smoker Smokeless Tobacco Status: No Alcohol use: none Drug use: none - Family History Mother Adopted: No Family Member Ethnicity: Non- Living Status: Hx Family Cardiac Disorders: Yes (Open heart surgery, valve problem.) Hx Family Respiratory Disorders: No Hx Family Cancer: No Hx Family GI Disorders: No Hx Family Endocrine Disorder: No Hx Family Neuromuscular Disorders: No Hx Family Neurologic Disorders: No Hx Family HEENT Disorders: No Hx Family Autoimmune Disorders: No Internal Medicine - H&P: Meds Oxygen 2 l NS AD 10/22/16 [History] Fluticasone Propionate Nasal [Flonase] 2 spr NS QAM 07/17/17 [History] Allopurinol [Zyloprim 100 MG] 100 mg PO DAILY #30 tablet 08/28/17 [Rx] Ascorbic Acid [Vitamin C] 500 mg PO DAILY@0630 #30 tablet 08/28/17 [Rx] Aspirin 81 mg PO DAILY #0 08/28/17 [Rx] Cyanocobalamin (B-12) [Vitamin B12] 1,000 mcg PO DAILY #30 tablet 08/28/17 [Rx] Ferrous Sulfate 325 mg PO DAILY@0630 #30 tablet 08/28/17 [Rx] Hydralazine HCl 100 mg PO TID #90 tablet 08/28/17 [Rx] Labetalol [Trandate] 200 mg PO BID #120 tablet 08/28/17 [Rx] Magnesium Oxide [Mag-Ox] 400 mg PO DAILY #7 tablet 08/28/17 [Rx] cloNIDine HCl [Clonidine HCl] 0.6 mg PO Q8H #180 tab 08/28/17 [Rx] Cholecalciferol (D-3) [Vitamin D] 1,000 unit PO DAILY 09/11/17 [History] Sertraline [Zoloft] 50 mg PO DAILY 09/11/17 [History] Bumetanide 0.5 mg PO DAILY 11/11/17 [History] Promethazine HCl 12.5 mg PO Q6H PRN 11/11/17 [History] Pantoprazole Sodium [Protonix] 40 mg PO DAILY 7 Days #7 tabletMattdr 11/14/17 [Rx] Potassium Chloride [K-Tab ER] 40 meq PO BID 14 Days #28 tablet.er 11/14/17 [Rx] Sennosides/Docusate Sodium [Senna Plus] 2 each PO BID 14 Days #56 tablet [Rx] Nitrofurantoin (BID) [Macrobid] 100 mg PO BID #14 capsule 02/22/18 [Rx] 3 Allergy/AdvReac Type Severity Reaction Status Date / Time Amoxicillin Allergy Rash Verified 02/22/18 10:35 atorvastatin [From Lipitor] Allergy See Verified 02/22/18 10:35 Comments cefdinir [From Omnicef] Allergy Vomiting Verified 02/22/18 10:35 cephalexin [From Keflex] Allergy See Verified 02/22/18 10:35 Comments Cortisone Allergy Redness of Verified 02/22/18 10:35 Skin doxycycline Allergy See Verified 02/22/18 10:35 Comments Erythromycin Base Allergy Cramping Verified 02/22/18 10:35 of the Muscles iodine Allergy SHAKING Verified 02/22/18 10:35 levofloxacin [From Levaquin] Allergy LIP Verified 02/22/18 10:35 SWELLING sitagliptin [From Januvia] Allergy Difficulty Verified 02/22/18 10:35 Breathing sulfamethoxazole Allergy Rash Verified 02/22/18 10:35 [From Bactrim] trimethoprim [From Bactrim] Allergy Rash Verified 02/22/18 10:35 amlodipine [From Norvasc] AdvReac SEE COMMENT Verified 02/22/18 10:35 cefuroxime [From Ceftin] AdvReac MUSCLE Verified 02/22/18 10:35 CRAMPS enalaprilat [From Vasotec] AdvReac Cough Verified 02/22/18 10:35 fluoxetine [From Prozac] AdvReac SEE COMMENT Verified 02/22/18 10:35 isosorbide [From Imdur] AdvReac Rash Verified 02/22/18 10:35 metoprolol AdvReac Dizziness Verified 02/22/18 10:35 nifedipine AdvReac Headache Verified 02/22/18 10:35 nystatin AdvReac See Verified 02/22/18 10:35 Comments Oxycodone AdvReac Headache Verified 02/22/18 10:35 Paroxetine [From Paxil] AdvReac CHILLS AND Verified 02/22/18 10:35 ITCH Prazosin AdvReac TACHYCARDIA Verified 02/22/18 10:35 Saxagliptin [From Onglyza] AdvReac UNKNOWN Verified 02/22/18 10:35 PER PT simvastatin [From Zocor] AdvReac MUSCLE Verified 02/22/18 10:35 WEAKNESS hydrin Allergy See Uncoded 02/22/18 10:35 Comments All Systems PM: A 10-system review of systems was performed and is negative for pertinent findings except as documented above in the HPI. - Constitutional Vitals: Temp Pulse Resp BP Pulse Ox 98.3 F 70 14 131/63 99 04/05/18 19:25 04/05/18 21:47 04/05/18 21:47 04/05/18 21:47 04/05/18 21:47 Exam: Vitals: Reviewed General: Asthenic appearing but no signs of acute distress. Skin: Pale, warm. HEENT: Slightly dry oral mucous membranes. Mild conjunctivae pallor. Neck: No lymphadenopathy. No JVD. No carotid bruits. No palpable thyroid. Chest: Normal thoracic expansion. Normal breath sounds. Clear to auscultation. Heart: Normal S1 & S2; rhythmic. Abdomen: Non-distended, soft and non-tender to palpation. Extremities: No clubbing, cyanosis or edema. No calf tenderness. Normal distal pulses. Neurological: Awake, alert and oriented to person, place and time. No focal deficits apparent. 4/5 strength x all extremities. Psych: Affect appropriate. Internal Med - H&P Results - Labs CBC & Chem 7: 04/05/18 19:45 04/05/18 19:45 Labs: Urine 04/05/18 Range/Units Unknown Urine Color Yellow (Yellow) Urine Clarity Clear (Clear) Urine pH 7.5 (5.0-8.0) pH Units Ur Specific [place] < 1.005 L (1.010-1.025) Urine Protein Trace (Neg-Trace) mg/dL Urine Glucose (UA) Normal (Normal) mg/dL - Assessment and plan (1) Hypertensive urgency Current Visit: Yes Status: Acute Assessment and plan: The patient has poorly controlled hypertension and the fact that she is on extremely high doses of clonidine is a testament to this. Her BP responded well to hydralazine. Will resume her home anti-hypertensives and continue to monitor her BP. (2) Shortness of breath Current Visit: Yes Status: Acute Assessment and plan: Seems to have resolved. She was not tachypneic or hypoxic or tachycardic at any time. The strain from her high BP may have had something to do with it. Will continue respiratory watch. If there is a decline we will consider chest CT w/ contrast. (3) Weakness Current Visit: Yes Status: Acute Assessment and plan: Seems to be more of a chronic process which acutely worsened in the setting of a hypertensive crisis. She has a non-focal exam. Given the CT report if the inability to exclude an acute infarct, will consider a brain MRI to ensure there is no new vascular process. No other organic processes appear to be at play. Consider PT consult. (4) Anemia Current Visit: Yes Status: Chronic Assessment and plan: Chronic. Continue iron supplementation and ascorbic acid. Qualifiers: Anemia type: iron deficiency Iron deficiency anemia type: inadequate dietary iron intake Qualified Code(s): D50.8 - Other iron deficiency anemias (5) Hypokalemia Current Visit: Yes Status: Acute Assessment and plan: Very mild. Possibly associated wit her use of diuretics. Home med reconciliation shows she takes potassium supplementation chronically. Will give 1 dose of KCL tonight. (6) DVT prophylaxis Current Visit: Yes Status: Acute Assessment and plan: SubQ heparin. - Time Spent With Patient Total time spent is greater than 50% in coordination of care (as documented) at patient's floor/unit and/or counseling patient: 25 - 35 minutes
[2018-04-06] MEDS ORDERED: Ascorbic Acid 500 MG TABLET PO SCH (06:30)
[2018-04-06] MEDS: cloNIDine HCl 0.1 MG TABLET PO SCH ×2 (06:46→15:05)
[2018-04-06] MEDS: *HR* Heparin 5,000 UNIT/ML VIAL SQ SCH ×2 (06:47→15:07)
[2018-04-06] MEDS: hydrALAZINE 25 MG TABLET PO SCH ×2 (08:14→15:05)
[2018-04-06] MEDS ORDERED: Aspirin 81 MG TAB.CHEW PO SCH (09:00)
[2018-04-06] MEDS ORDERED: Sennosides/Docusate Sodium TABLET PO SCH (09:00)
[2018-04-06] MEDS ORDERED: Magnesium Oxide 400 MG TABLET PO SCH (09:00)
[2018-04-06] MEDS ORDERED: Fluticasone Propionate Nasal 50 MCG/SPRAY BOTTLE NS SCH (09:00)
[2018-04-06] MEDS ORDERED: Cyanocobalamin (B-12) 1,000 MCG TABLET PO SCH (09:00)
[2018-04-06] MEDS ORDERED: Bumetanide 1 MG TABLET PO SCH (09:00)
[2018-04-06] MEDS ORDERED: Cholecalciferol (D-3) 1,000 UNIT TABLET PO SCH (09:00)
[2018-04-06 11:16] VITALS: BP 137/69
--- NOTE | 2018-04-06 13:45 | Discharge Summary ---
Orders not resulted at time of discharge: Pending orders 04/05/18 22:53 MR head/brain wo con [MR] Routine Date of Encounter: 04/06/18 Time of Encounter: 13:30 - Discharge Diagnosis (1) Hypertensive urgency Priority: Primary Status: Acute (2) Hypertensive renal disease with renal failure Priority: Secondary Status: Chronic (3) COPD with hypoxia Priority: Secondary Status: Chronic (4) Hypokalemia Priority: Secondary Status: Acute (5) Weakness Priority: Secondary Status: Acute Hospital course: The patient was admitted to the hospitalist service with uncontrolled/high blood pressure. Her systolic blood pressure was 220 at home, when checked by paramedics. She got IV hydralazine. Her first blood pressure recorded in the emergency room was 202/103. It was 174/63 about 2 hours later. This patient had generalized her symptoms of weakness/not feeling well, as well as a generalized numbness/tingling in the last 7 days preceding this admission. The patient was not able to stand up on her own due to generalized weaknesswhen evaluated by the ER physician. We decided to get her to observation admission. We restarted her previous antihypertensives including clonidine, labetalol and hydralazine. We added amlodipine at 10 mg by mouth daily. CONDITION AT DISCHARGE: The patient feels good. Her generalized symptoms described above nearly completely subsided. Denies chest pain. Denies difficulty breathing. She ambulates on her own. Skin: Free of rash and discoloration. Respiratory: Normal breath sounds with no crackles and wheezes bilaterally. CV: Heart is regular with no gallop or murmur. GI: Abdomen is flat and soft with no palpable mass or visceromegaly. Neuro exam: There is no focal deficits. Normal speech, swallowing and gait. SEE DISCHARGE ORDERS/MEDICATIONS.. - Time Spent with Patient Total time spent providing and/or coordinating discharge services: Greater than 30 minutes (50 minutes) - Discharge Medications Prescriptions: Amlodipine Besylate 10 mg PO QDPC #30 tablet Pantoprazole Sodium [Protonix] 40 mg PO QDPC #30 tablet.dr Hernandez Medications: Oxygen 2 l NS AD 10/22/16 [History] Fluticasone Propionate Nasal [Flonase] 2 spr NS QAM 07/17/17 [History] Allopurinol [Zyloprim 100 MG] 100 mg PO DAILY #30 tablet 08/28/17 [Rx] Ascorbic Acid [Vitamin C] 500 mg PO DAILY@0630 #30 tablet 08/28/17 [Rx] Aspirin 81 mg PO DAILY #0 08/28/17 [Rx] Cyanocobalamin (B-12) [Vitamin B12] 1,000 mcg PO DAILY #30 tablet 08/28/17 [Rx] Ferrous Sulfate 325 mg PO DAILY@0630 #30 tablet 08/28/17 [Rx] Labetalol [Trandate] 200 mg PO BID #120 tablet 08/28/17 [Rx] Magnesium Oxide [Mag-Ox] 400 mg PO DAILY #7 tablet 08/28/17 [Rx] cloNIDine HCl [Clonidine HCl] 0.6 mg PO Q8H #180 tab 08/28/17 [Rx] Cholecalciferol (D-3) [Vitamin D] 1,000 unit PO DAILY 09/11/17 [History] Sertraline [Zoloft] 50 mg PO DAILY 09/11/17 [History] Bumetanide 0.5 mg PO DAILY 11/11/17 [History] Promethazine HCl 12.5 mg PO Q6H PRN 11/11/17 [History] Amlodipine Besylate 10 mg PO QDPC #30 tablet 04/06/18 [Rx] Hydralazine HCl 100 mg PO Q8HR #0 04/06/18 [Rx] Losartan [Cozaar] 25 mg PO BID 04/06/18 [History] Lubiprostone [Amitiza] 8 mcg PO BID 04/06/18 [History] Pantoprazole Sodium [Protonix] 40 mg PO QDPC #30 carmen. 04/06/18 [Rx] Potassium Chloride [K-Tab ER] 40 meq PO Q8HR #0 04/06/18 [Rx] Sennosides/Docusate Sodium [Senna Plus] 2 each PO BID tablet 04/06/18 [Rx] Allergies/Adverse Reactions: 3 Allergy/AdvReac Type Severity Reaction Status Date / Time Amoxicillin Allergy Rash Verified 02/22/18 10:35 atorvastatin [From Lipitor] Allergy See Verified 02/22/18 10:35 Comments cefdinir [From Omnicef] Allergy Vomiting Verified 02/22/18 10:35 cephalexin [From Keflex] Allergy See Verified 02/22/18 10:35 Comments Cortisone Allergy Redness of Verified 02/22/18 10:35 Skin doxycycline Allergy See Verified 02/22/18 10:35 Comments Erythromycin Base Allergy Cramping Verified 02/22/18 10:35 of the Muscles iodine Allergy SHAKING Verified 02/22/18 10:35 levofloxacin [From Levaquin] Allergy LIP Verified 02/22/18 10:35 SWELLING sitagliptin [From Januvia] Allergy Difficulty Verified 02/22/18 10:35 Breathing sulfamethoxazole Allergy Rash Verified 02/22/18 10:35 [From Bactrim] trimethoprim [From Bactrim] Allergy Rash Verified 02/22/18 10:35 amlodipine [From Norvasc] AdvReac SEE COMMENT Verified 02/22/18 10:35 cefuroxime [From Ceftin] AdvReac MUSCLE Verified 02/22/18 10:35 CRAMPS enalaprilat [From Vasotec] AdvReac Cough Verified 02/22/18 10:35 fluoxetine [From Prozac] AdvReac SEE COMMENT Verified 02/22/18 10:35 isosorbide [From Imdur] AdvReac Rash Verified 02/22/18 10:35 metoprolol AdvReac Dizziness Verified 02/22/18 10:35 nifedipine AdvReac Headache Verified 02/22/18 10:35 nystatin AdvReac See Verified 02/22/18 10:35 Comments Oxycodone AdvReac Headache Verified 02/22/18 10:35 Paroxetine [From Paxil] AdvReac CHILLS AND Verified 02/22/18 10:35 ITCH Prazosin AdvReac TACHYCARDIA Verified 02/22/18 10:35 Saxagliptin [From Onglyza] AdvReac UNKNOWN Verified 02/22/18 10:35 PER PT simvastatin [From Zocor] AdvReac MUSCLE Verified 02/22/18 10:35 WEAKNESS hydrin Allergy See Uncoded 02/22/18 10:35 Comments Date of admission: 04/05/18 22:30 Primary care physician: Rita Zhao CNP Discharging clinician: Eduardo Trent Anticipated date of discharge: 04/06/18 - Constitutional Vitals: Temp Pulse Resp BP Pulse Ox 98.6 F 56 18 137/69 99 04/06/18 11:15 04/06/18 11:15 04/06/18 11:15 04/06/18 11:15 04/06/18 11:15 General appearance: Present: A&O X 3, no acute distress, answers questions appropriately Exam: xxx - Patient Status Disposition: Home, Self-Care Condition: Fair Functional capacity at discharge: wheelchair bound Overall status at discharge: patient is progressing back to baseline - Discharge Instructions Instructions: Coronary Artery Disease (GEN), Chronic Hypertension (GEN) Follow Up With: Rita Zhao CNP [Primary Care Provider] - 04/13/18 9:45 am (Please follow up as schedule...) - Diet and Activity Activity: other (a wheel-chair) Diet: diabetic diet - VTE Deep Vein Thrombosis/Pulmonary Embolism Present on Admission: No
--- NOTE | 2018-04-06 15:36 | Electrocardiograph Report ---
[address] [address] Test Date: 2018-04-05 Pat Name: Sherice Howard Department: Room: 2A13 Gender: F Hospitalist Physician: : [id number] Requested By: Patrick Gomez Order Number: [id number] Reading MD: Dmitry Anton Measurements Intervals [place] Rate: 59 P: 73 MD: 143 QRS: 113 QRSD: 115 T: 42 QT: 495 QTc: 491 Interpretive Statements Sinus rhythm Probable left atrial enlargement Electronically Signed On 04-06-2018 15:34:42 EDT by Dmitry Anton
== END 2018-04-06 16:51 | disposition home or self-care (01) ==
LOC: 2ANU 19:21 → EMEROOARM 19:21 → SUATTDRO 22:30 → 2ANU 22:33
PROVIDERS: ADMIT Internal Medicine; ATTEND Internal Medicine

== ENCOUNTER 2018-05-21 13:03 | Observation (INO) ==
--- NOTE | 2018-05-21 13:18 | Emergency Department Note ---
Disposition Clinical Impression: Cellulitis Qualifiers: Site of cellulitis: unspecified site Qualified Code(s): L03.90 - Cellulitis, unspecified Disposition: Admitted As Inpatient Condition: Good Forms: ED Satisfaction Letter General Adult HPI - General Chief complaint: ED Extremity Problem,Nontraumatic Stated complaint: bilateral leg pain Time Seen by Provider: 05/21/18 13:12 Source: EMS Mode of arrival: ambulatory Limitations: no limitations Nursing Notes Reviewed: Yes Vital Signs Reviewed: Yes - History of Present Illness HPI Narrative: Patient presents via EMS for evaluation of bilateral lower extremity swelling with associated redness to the right leg. Patient's symptoms started several days ago and been progressively worse in nature. Was seen at urgent care and came back today for a recheck. The patient swelling is gotten worse. She has noticed serous fluid drainage within the wrapping itself. The patient has not had any significant chest pain or shortness of breath. Patient is in a wheelchair so she is not ambulatory except for transitioning from the wheelchair to be better the couch. The patient does not have any associated orthopnea. The patient has not had any recent surgeries or trauma. The patient has not had any previous history of DVT. Evaluation for blood clot versus cellulitis has been ordered. DVT studies pending. - Related Data Home Medications Medication Instructions Recorded Confirmed Oxygen 2 l NS AD 10/22/16 05/04/18 Fluticasone Propionate Nasal 2 spr NS QAM 07/17/17 05/04/18 [Flonase] Cholecalciferol (D-3) [Vitamin D] 1,000 unit PO DAILY 09/11/17 05/04/18 Sertraline [Zoloft] 50 mg PO DAILY 09/11/17 05/04/18 Promethazine HCl 12.5 mg PO Q6H PRN 11/11/17 05/04/18 Losartan [Cozaar] 25 mg PO BID 04/06/18 05/04/18 Lubiprostone [Amitiza] 8 mcg PO BID 04/06/18 05/04/18 Previous Rx's Medication Instructions Recorded Allopurinol [Zyloprim 100 MG] 100 mg PO DAILY #30 tablet 08/28/17 Ascorbic Acid [Vitamin C] 500 mg PO DAILY@0630 #30 tablet 08/28/17 Ferrous Sulfate 325 mg PO DAILY@0630 #30 tablet 08/28/17 Labetalol [Trandate] 200 mg PO BID #120 tablet 08/28/17 Magnesium Oxide [Mag-Ox] 400 mg PO DAILY #7 tablet 08/28/17 cloNIDine HCl [Clonidine HCl] 0.6 mg PO Q8H #180 tab 08/28/17 Pantoprazole Sodium [Protonix] 40 mg PO QDPC #30 tablet. 04/06/18 Sennosides/Docusate Sodium [Senna 2 each PO BID tablet 04/06/18 Plus] Albuterol Sulfate [Albuterol 2 puff IH Q4H PRN #1 inhaler 04/24/18 Inhaler] Aspirin 81 mg PO Q48H 365 Days tab.chew 04/24/18 Lactobacillus [Culturelle] 1 each PO BID #6 cap.sprink 04/24/18 Potassium Chloride [K-Tab ER] 20 meq PO BID 365 Days tablet.er 04/24/18 Pramoxine HCl/Diphenhydramine 1 appl TP QID PRN #118 lotion 05/03/18 [Solarhist 1%-2% Lotion] Ranitidine HCl [Zantac] 300 mg PO HS #30 tablet 05/03/18 methylPREDNISolone [Medrol] 4 mg PO DAILY 6 Days #21 tablet 05/04/18 Allergies Allergy/AdvReac Type Severity Reaction Status Date / Time Amoxicillin Allergy Rash Verified 05/03/18 18:14 atorvastatin [From Lipitor] Allergy See Verified 05/03/18 18:14 Comments cefdinir [From Omnicef] Allergy Vomiting Verified 05/03/18 18:14 cephalexin [From Keflex] Allergy See Verified 05/03/18 18:14 Comments Cortisone Allergy Redness of Verified 05/03/18 18:14 Skin doxycycline Allergy See Verified 05/03/18 18:14 Comments Erythromycin Base Allergy Cramping Verified 05/03/18 18:14 of the Muscles iodine Allergy SHAKING Verified 05/03/18 18:14 levofloxacin [From Levaquin] Allergy LIP Verified 05/03/18 18:14 SWELLING sitagliptin [From Januvia] Allergy Difficulty Verified 05/03/18 18:14 Breathing sulfamethoxazole Allergy Rash Verified 05/03/18 18:14 [From Bactrim] trimethoprim [From Bactrim] Allergy Rash Verified 05/03/18 18:14 amlodipine [From Norvasc] AdvReac SEE COMMENT Verified 05/03/18 18:14 cefuroxime [From Ceftin] AdvReac MUSCLE Verified 05/03/18 18:14 CRAMPS enalaprilat [From Vasotec] AdvReac Cough Verified 05/03/18 18:14 fluoxetine [From Prozac] AdvReac SEE COMMENT Verified 05/03/18 18:14 isosorbide [From Imdur] AdvReac Rash Verified 05/03/18 18:14 metoprolol AdvReac Dizziness Verified 05/03/18 18:14 nifedipine AdvReac Headache Verified 05/03/18 18:14 nystatin AdvReac See Verified 05/03/18 18:14 Comments Oxycodone AdvReac Headache Verified 05/03/18 18:14 Paroxetine [From Paxil] AdvReac CHILLS AND Verified 05/03/18 18:14 ITCH Prazosin AdvReac TACHYCARDIA Verified 05/03/18 18:14 Saxagliptin [From Onglyza] AdvReac UNKNOWN Verified 05/03/18 18:14 PER PT simvastatin [From Zocor] AdvReac MUSCLE Verified 05/03/18 18:14 WEAKNESS hydrin Allergy See Uncoded 05/03/18 18:14 Comments Review of Systems: CONSTITUTIONAL: No weight loss, fever, chills, weakness or fatigue. HEENT: Eyes: No visual changes. Ears, Nose, Throat: No hearing loss, difficulty talking or unable to swallow. SKIN: Erythema to the right lower extremity CARDIOVASCULAR: No chest pain, chest pressure or chest discomfort. No palpitations or edema. RESPIRATORY: No shortness of breath, cough or sputum. GASTROINTESTINAL: No anorexia, nausea, vomiting or diarrhea. No abdominal pain or blood. GENITOURINARY: No burning on urination or hematuria. NEUROLOGICAL: No headache, dizziness, syncope, paralysis, ataxia, numbness or tingling in the extremities. No change in bowel or bladder control. 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 - Social History Smoking Status: Never smoker Smokeless Tobacco Status: No Alcohol use: Reports: none Drug use: Reports: none Physical Exam General: Well appearing, nontoxic, no acute distress Head: Normocephalic Atraumatic Eyes: PERRL, EOMI ENT: Airway patent, no stridor Neck: supple, no meningismus Chest: Lungs clear to auscultation bilateral Cardiac: Regular rate and rhythm, no murmurs, rubs or gallops Abdomen: soft, nontender, nondistended; no guarding, rebound, or tenderness to percussion Musculoskeletal: Both calves are swollen with the right worse than the left and associated +2 pitting edema with palpable DP pulses bilaterally. Skin: Erythema to the right leg most significant in the anterior portion of the lower leg Neuro: Alert and Oriented to person, place, and time; No focal deficit Course - Reevaluation(s) Reevaluation #1: DVT study is negative. Patient has mildly elevated inflammatory markers. I did discuss the patient and the need for antibiotics. Patient is concerned secondary to her living alone at home and she does not feel comfortable going home with the swelling and erythema of the lower extremities. Even her diabetes and comorbidities I do believe it is reasonable to bring her in the hospital as she has partial circumferential erythema of most of the right lower extremity. Patient will be given a dose of vancomycin. Her Vanco levels will need to be monitored closely as she has a single solitary kidney. - Consultations Consultation #1: Discussed with hospitalist. Patient accepted for admission. Vital Signs Temperature 98.6 F 05/21/18 13:15 Pulse Rate 69 05/21/18 13:15 Respiratory Rate 17 05/21/18 13:15 Blood Pressure 168/67 05/21/18 13:15 O2 Sat by Pulse Oximetry 96 05/21/18 13:15 Temperature 98.6 F 05/21/18 13:15 Pulse Rate 69 05/21/18 15:12 Respiratory Rate 18 05/21/18 15:12 Blood Pressure 174/65 05/21/18 15:12 O2 Sat by Pulse Oximetry 96 05/21/18 15:12 Oxygen Delivery Oxygen Delivery Room Air Medical Decision Making - Lab Data Result diagrams: 05/21/18 13:44 05/21/18 13:44 Lab Results 05/21/18 05/21/18 05/21/18 Range/Units 13:44 13:44 13:44 WBC (4.3-11.1) K/mcL RBC (3.82-4.97) M/mcL Hgb (11.5-15.4) g/dL Hct (35.3-44.9) % MCV (83.0-100.0) fL MCH (28.0-33.3) pg MCHC (31.6-35.5) g/dL RDW (11.5-14.5) % Plt Count (140-400) K/mcL MPV (9.4-12.4) fL Immature Gran % (0-4) % Seg Neutrophils % % Lymphocytes % % Monocytes % % Eosinophils % % Basophils % % Neutrophils # (1.6-8.9) K/mcL Lymphocytes # (0.6-4.6) K/mcL Monocytes # (0.0-1.3) K/mcL Eosinophils # (0.0-0.6) K/mcL Basophils # (0.0-0.2) K/mcL ESR 45 H (0-15) mm/hr PT 11.1 (9.4-12.1) Seconds INR 1.0 Sodium (136-145) mEq/L Potassium (3.5-5.1) mEq/L Chloride (98-107) mEq/L Carbon Dioxide (23-29) mEq/L BUN (8-23) mg/dL Creatinine (0.60-1.20) mg/dL Est GFR ( Amer) (> 60) Est GFR (Non-Af Amer) (> 60) BUN/Creatinine Ratio (6-26) Glucose (70-105) mg/dL Calculated Osmolality (280-300) Calcium (8.6-10.3) mg/dL Troponin I (< 0.04) ng/mL C-Reactive Protein (Less than 10) mg/L B-Natriuretic Peptide 111 H (Less than 100) pg/mL 05/21/18 05/21/18 05/21/18 Range/Units 13:44 13:44 13:44 WBC 5.9 (4.3-11.1) K/mcL RBC 3.24 L (3.82-4.97) M/mcL Hgb 9.4 L (11.5-15.4) g/dL Hct 29.8 L (35.3-44.9) % MCV 92.0 (83.0-100.0) fL MCH 29.0 (28.0-33.3) pg MCHC 31.5 L (31.6-35.5) g/dL RDW 15.5 H (11.5-14.5) % Plt Count 120 L (140-400) K/mcL MPV 10.3 (9.4-12.4) fL Immature Gran % 0.2 (0-4) % Seg Neutrophils % 60.7 % Lymphocytes % 24.1 % Monocytes % 10.8 % Eosinophils % 3.7 % Basophils % 0.5 % Neutrophils # 3.6 (1.6-8.9) K/mcL Lymphocytes # 1.4 (0.6-4.6) K/mcL Monocytes # 0.6 (0.0-1.3) K/mcL Eosinophils # 0.2 (0.0-0.6) K/mcL Basophils # 0.0 (0.0-0.2) K/mcL ESR (0-15) mm/hr PT (9.4-12.1) Seconds INR Sodium 141 (136-145) mEq/L Potassium 3.2 L (3.5-5.1) mEq/L Chloride 102 (98-107) mEq/L Carbon Dioxide 30 H (23-29) mEq/L BUN 25 H (8-23) mg/dL Creatinine 1.55 H (0.60-1.20) mg/dL Est GFR ( Amer) 39 L (> 60) Est GFR (Non-Af Amer) 32 L (> 60) BUN/Creatinine Ratio 16 (6-26) Glucose 145 H (70-105) mg/dL Calculated Osmolality 299 (280-300) Calcium 9.1 (8.6-10.3) mg/dL Troponin I < 0.03 (< 0.04) ng/mL C-Reactive Protein 12 H (Less than 10) mg/L B-Natriuretic Peptide (Less than 100) pg/mL
[2018-05-21 14:01] LABS: Basophils % 0.5 %; Eosinophils # 0.2 K/mcL (0.0-0.6); Eosinophils % 3.7 %; Hematocrit 29.8 % (35.3-44.9); Hemoglobin 9.4 g/dL (11.5-15.4); Immature Granulocytes % 0.2 % (0-4); Lymphocytes # 1.4 K/mcL (0.6-4.6); Lymphocytes % 24.1 %; Mean Corpuscular HGB Conc 31.5 g/dL (31.6-35.5); Mean Platelet Volume 10.3 fL (9.4-12.4); Monocytes # 0.6 K/mcL (0.0-1.3); Monocytes % 10.8 %; Neutrophils # 3.6 K/mcL (1.6-8.9); Platelet Count 120 K/mcL (140-400); Red Blood Count 3.24 M/mcL (3.82-4.97); Red Cell Distribution Width 15.5 % (11.5-14.5); Segmented Neutrophils % 60.7 %
[2018-05-21 14:07] LABS: Prothrombin Time 11.1 Seconds (9.4-12.1)
[2018-05-21 14:29] LABS: Troponin I < 0.03 ng/mL (< 0.04)
[2018-05-21 14:32] LABS: BUN/Creatinine Ratio 16 (6-26); Blood Urea Nitrogen 25 mg/dL (8-23); Calcium 9.1 mg/dL (8.6-10.3); Carbon Dioxide 30 mEq/L (23-29); Chloride 102 mEq/L (98-107); Glucose 145 mg/dL (70-105); Osmolality,Calculated 299 (280-300); Potassium 3.2 mEq/L (3.5-5.1); Sodium 141 mEq/L (136-145); eGFR For Non-African Americans 32 (> 60)
[2018-05-21] MEDS ORDERED: DIPHENHYDRAMINE TP PRN (17:08)
[2018-05-21] MEDS ORDERED: PRAMOXINE HCL TP PRN (17:08)
[2018-05-21] MEDS ORDERED: cloNIDine HCl 0.1 MG TABLET PO SCH (17:15)
[2018-05-21] MEDS ORDERED: Naloxone 0.4 MG/ML INJ IVP PRN (17:26)
[2018-05-21] MEDS ORDERED: Acetaminophen 325 MG TABLET PO PRN (17:26)
[2018-05-21] MEDS ORDERED: traMADol 50 MG TABLET PO PRN (17:26)
--- NOTE | 2018-05-21 17:33 | Internal Med History&Physical ---
Date of Encounter: 05/21/18 Time of Encounter: 17:33 Internal Medicine - H&P: HPI Admitted From: Home Plans for Post Hospital Care: Home History of present illness: Ms. Howard is a 78 year old female with past medical history of CHF, COPD, diabetes, and chronic renal disease presented via EMS for evaluation of bilateral lower extremity swelling with associated redness to the right leg. Patient's symptoms started several days ago and been progressively worse in nature. Was seen at urgent care and came back today for a recheck. The patient swelling is gotten worse. She has noticed serous fluid drainage within the wrapping itself. The patient has not had any significant chest pain or shortness of breath. Patient is in a wheelchair so she is not ambulatory except for transitioning from the wheelchair to be better the couch. The patient does not have any associated orthopnea. The patient has not had any recent surgeries or trauma. The patient has not had any previous history of DVT. Evaluation for blood clot versus cellulitis has been ordered. At the ED, her blood pressure was notably high, labs revealed hemoglobin 9.7, potassium 3.2, borderline BNP, elevated creatinine and BUN. DVT study to both lower extremities were negative. She received 1 dose of vancomycin at ED, she will be admitted as observation for further evaluation and treatment. Past Med Surg Social Fam HX - Past Medical History Medical history: asthma, CHF, COPD, diabetes, kidney stones, renal disease Additional medical history: Kidney cancer , HAS RIGHT KIDNEY Psychiatric history: anxiety, depression - Past Surgical History Surgical History: knee replacement Additional surgical history: Left nephrectomy. Left knee replacement. Left femur plate - Social History Smoking Status: Never smoker Smokeless Tobacco Status: No Alcohol use: none Drug use: none - Family History Mother Adopted: No Family Member Ethnicity: Non- Living Status: Hx Family Cardiac Disorders: Yes (Open heart surgery, valve problem.) Hx Family Respiratory Disorders: No Hx Family Cancer: No Hx Family GI Disorders: No Hx Family Endocrine Disorder: No Hx Family Neuromuscular Disorders: No Hx Family Neurologic Disorders: No Hx Family HEENT Disorders: No Hx Family Autoimmune Disorders: No Internal Medicine - H&P: Meds Oxygen 2 l NS AD 10/22/16 [History] Fluticasone Propionate Nasal [Flonase] 2 spr NS QAM 07/17/17 [History] Allopurinol [Zyloprim 100 MG] 100 mg PO DAILY #30 tablet 08/28/17 [Rx] Ascorbic Acid [Vitamin C] 500 mg PO DAILY@0630 #30 tablet 08/28/17 [Rx] Ferrous Sulfate 325 mg PO DAILY@0630 #30 tablet 08/28/17 [Rx] Labetalol [Trandate] 200 mg PO BID #120 tablet 08/28/17 [Rx] Magnesium Oxide [Mag-Ox] 400 mg PO DAILY #7 tablet 08/28/17 [Rx] cloNIDine HCl [Clonidine HCl] 0.6 mg PO Q8H #180 tab 08/28/17 [Rx] Cholecalciferol (D-3) [Vitamin D] 1,000 unit PO DAILY 09/11/17 [History] Sertraline [Zoloft] 50 mg PO DAILY 09/11/17 [History] Promethazine HCl 12.5 mg PO Q6H PRN 11/11/17 [History] Losartan [Cozaar] 25 mg PO BID 04/06/18 [History] Lubiprostone [Amitiza] 8 mcg PO BID 04/06/18 [History] Pantoprazole Sodium [Protonix] 40 mg PO QDPC #30 tablet. 04/06/18 [Rx] Sennosides/Docusate Sodium [Senna Plus] 2 each PO BID tablet 04/06/18 [Rx] Albuterol Sulfate [Albuterol Inhaler] 2 puff IH Q4H PRN #1 inhaler 04/24/18 [Rx] Aspirin 81 mg PO Q48H 365 Days tab.chew 04/24/18 [Rx] Lactobacillus [Culturelle] 1 each PO BID #6 cap.sprink 04/24/18 [Rx] Potassium Chloride [K-Tab ER] 20 meq PO BID 365 Days tablet.er 04/24/18 [Rx] Pramoxine HCl/Diphenhydramine [Solarhist 1%-2% Lotion] 1 appl TP QID PRN #118 lotion 05/03/18 [Rx] Ranitidine HCl [Zantac] 300 mg PO HS #30 tablet 05/03/18 [Rx] Bumetanide [Bumetanide] 0.5 mg PO DAILY 05/21/18 [History] 3 Allergy/AdvReac Type Severity Reaction Status Date / Time Amoxicillin Allergy Rash Verified 05/03/18 18:14 atorvastatin [From Lipitor] Allergy See Verified 05/03/18 18:14 Comments cefdinir [From Omnicef] Allergy Vomiting Verified 05/03/18 18:14 cephalexin [From Keflex] Allergy See Verified 05/03/18 18:14 Comments Cortisone Allergy Redness of Verified 05/03/18 18:14 Skin doxycycline Allergy See Verified 05/03/18 18:14 Comments Erythromycin Base Allergy Cramping Verified 05/03/18 18:14 of the Muscles iodine Allergy SHAKING Verified 05/03/18 18:14 levofloxacin [From Levaquin] Allergy LIP Verified 05/03/18 18:14 SWELLING sitagliptin [From Januvia] Allergy Difficulty Verified 05/03/18 18:14 Breathing sulfamethoxazole Allergy Rash Verified 05/03/18 18:14 [From Bactrim] trimethoprim [From Bactrim] Allergy Rash Verified 05/03/18 18:14 amlodipine [From Norvasc] AdvReac SEE COMMENT Verified 05/03/18 18:14 cefuroxime [From Ceftin] AdvReac MUSCLE Verified 05/03/18 18:14 CRAMPS enalaprilat [From Vasotec] AdvReac Cough Verified 05/03/18 18:14 fluoxetine [From Prozac] AdvReac SEE COMMENT Verified 05/03/18 18:14 isosorbide [From Imdur] AdvReac Rash Verified 05/03/18 18:14 metoprolol AdvReac Dizziness Verified 05/03/18 18:14 nifedipine AdvReac Headache Verified 05/03/18 18:14 nystatin AdvReac See Verified 05/03/18 18:14 Comments Oxycodone AdvReac Headache Verified 05/03/18 18:14 Paroxetine [From Paxil] AdvReac CHILLS AND Verified 05/03/18 18:14 ITCH Prazosin AdvReac TACHYCARDIA Verified 05/03/18 18:14 Saxagliptin [From Onglyza] AdvReac UNKNOWN Verified 05/03/18 18:14 PER PT simvastatin [From Zocor] AdvReac MUSCLE Verified 05/03/18 18:14 WEAKNESS hydrin Allergy See Uncoded 05/03/18 18:14 Comments All Systems PM: A 10-system review of systems was performed and is negative for pertinent findings except as documented above in the HPI. Review of systems: REVIEW OF SYSTEMS: CONSTITUTIONAL: No weight loss, fever, chills, weakness or fatigue. HEENT: Eyes: No visual loss, blurred vision, double vision or yellow sclerae. Ears, Nose, Throat: No hearing loss, sneezing, congestion, runny nose or sore throat. SKIN: No rash or itching. CARDIOVASCULAR: No chest pain, chest pressure or chest discomfort. No palpitations or edema. RESPIRATORY: No shortness of breath, cough or sputum. GASTROINTESTINAL: No anorexia, nausea, vomiting or diarrhea. No abdominal pain or blood. GENITOURINARY: No dysuria, urgency, or frequency. NEUROLOGICAL: No headache, dizziness, syncope, paralysis, ataxia, numbness or tingling in the extremities. No change in bowel or bladder control. MUSCULOSKELETAL: see HPI. HEMATOLOGIC: No anemia, bleeding or bruising. LYMPHATICS: No enlarged nodes. No history of splenectomy. PSYCHIATRIC: No history of depression or anxiety. ENDOCRINOLOGIC: No reports of sweating, cold or heat intolerance. No polyuria or polydipsia. - Constitutional Vitals: Temp Pulse Resp BP Pulse Ox 98.6 F 70 18 168/61 97 05/21/18 13:15 05/21/18 16:53 05/21/18 16:53 05/21/18 16:53 05/21/18 16:53 General appearance: Present: A&O X 3 Exam: PHYSICAL EXAMINATION: GENERAL APPEARANCE: The patient is alert, oriented and in no acute distress. HEENT: Head is normocephalic. The sinuses are nontender. Pupils are equal and reactive. The nares are patent. Oropharynx clear without lesions. NECK: Supple without lymphadenopathy. HEART: Regular rate and rhythm. LUNGS: No crackles or wheezes are heard. ABDOMEN: Soft, nontender, nondistended with good bowel sounds heard. Inguinal area is normal. EXTREMITIES: 2+ pitting edema on BLE, right leg has diffuse erythema and bruises. NEUROLOGICAL: Gross nonfocal. SKIN: Warm and dry without any rash. Internal Med - H&P Results - Labs CBC & Chem 7: 05/21/18 13:44 05/21/18 13:44 - Assessment and plan (1) Cellulitis Current Visit: Yes Status: Acute Assessment and plan: 89 year old female with chronic leg swelling, CHF, COPD, diabetes, and chronic kidney disease presented with acute onset of swelling and redness of right leg. DVT study was negative to both lower extremities. Patient takes Bumex at home for CHF and chronic leg swelling. On physical exam right leg he is more swollen and and red than the left side. - Signs and symptoms were consistent with cellulitis. Pending blood culture. Continue vancomycin. - The Bumex by mouth to IV. Monitor swelling. Qualifiers: Site of cellulitis: unspecified site Qualified Code(s): L03.90 - Cellulitis , unspecified (2) CKD (chronic kidney disease) stage 3, GFR 30-59 ml/min Current Visit: No Status: Chronic Assessment and plan: Creatinine at the baseline, continue monitoring. (3) Gout Current Visit: No Status: Chronic Assessment and plan: Continue home medications allopurinol. Qualifiers: Gout site: unspecified site Gout etiology: unspecified cause Chronicity: chronic Presence of tophus: without tophus Qualified Code(s): M1A.9XX0 - Chronic gout, unspecified, without tophus (tophi) (4) Hypertension Current Visit: No Status: Chronic Assessment and plan: BP was notably high at the ED, will continue monitoring, adjust medications if indicated. Qualifiers: Hypertension type: essential hypertension Qualified Code(s): I10 - Essential (primary) hypertension (5) Hypokalemia Current Visit: Yes Status: Acute Assessment and plan: Potassium 3.2 at the ED, patient home potassium supplement at home, we will order one time potassium, continue home dose of potassium. Repeat BMP in the morning. (6) Diastolic CHF Current Visit: No Status: Chronic Assessment and plan: Last echocardiogram 07/2017 showed ejection fraction 60%, mild LV diastolic dysfunction, mild aortic stenosis. BNP 111. Patient seems slightly fluid overloaded on physical exam. change Bumex from oral to IV. Low sodium diet, fluid restrictions, daily weight. Qualifiers: Heart failure chronicity: chronic Qualified Code(s): I50.32 - Chronic diastolic (congestive) heart failure (7) COPD (chronic obstructive pulmonary disease) Current Visit: No Status: Chronic Assessment and plan: Respiratory status stable, continue home medications. Qualifiers: COPD type: unspecified COPD Qualified Code(s): J44.9 - Chronic obstructive pulmonary disease, unspecified (8) Type 2 diabetes mellitus Current Visit: No Status: Chronic Assessment and plan: Patient not on insulin or oral agent at home, continue monitoring. Qualifiers: Diabetes mellitus terminal block assembler insulin use: without fci use Diabetes mellitus complication status: with kidney complications Diabetes mellitus complication detail: with chronic kidney disease Chronic kidney disease stage : stage 3 (moderate) Qualified Code(s): E11.22 - Type 2 diabetes mellitus with diabetic chronic kidney disease; N18.3 - Chronic kidney disease, stage 3 ( moderate); N18.3 - Chronic kidney disease, stage 3 (moderate) - Time Spent With Patient Total time spent is greater than 50% in coordination of care (as documented) at patient's floor/unit and/or counseling patient: Greater than 35 minutes
[2018-05-21] MEDS ORDERED: Vancomycin 1 EACH in 0.9 % Sodium Chloride 250 ML IVPB SCH (18:00)
[2018-05-21] MEDS: Sennosides/Docusate Sodium TABLET PO SCH (20:26)
[2018-05-21] MEDS: (Lubiprostone [Amitiza] 8 MCG) PO SCH (20:53)
[2018-05-21] MEDS ORDERED: Famotidine 20 MG TABLET PO SCH (21:00)
[2018-05-21] MEDS: Aspirin 81 MG TAB.CHEW PO SCH (21:07)
[2018-05-21] MEDS: Lactobacillus 1 EACH CAP.SPRINK PO SCH (21:07)
[2018-05-21] MEDS: *HR* Heparin 5,000 UNIT/ML VIAL SQ SCH (21:09)
[2018-05-21] MEDS: cloNIDine HCl 0.1 MG TABLET PO SCH (23:00)
[2018-05-22 02:07] LABS: Basophils % 0.4 %; Eosinophils # 0.3 K/mcL (0.0-0.6); Eosinophils % 5.4 %; Hematocrit 30.8 % (35.3-44.9); Hemoglobin 9.5 g/dL (11.5-15.4); Immature Granulocytes % 0.2 % (0-4); Lymphocytes # 1.7 K/mcL (0.6-4.6); Lymphocytes % 32.7 %; Mean Corpuscular HGB Conc 30.8 g/dL (31.6-35.5); Mean Corpuscular Hemoglobin 28.8 pg (28.0-33.3); Mean Corpuscular Volume 93.3 fL (83.0-100.0); Mean Platelet Volume 11.3 fL (9.4-12.4); Monocytes # 0.6 K/mcL (0.0-1.3); Monocytes % 11.5 %; Neutrophils # 2.6 K/mcL (1.6-8.9); Platelet Count 120 K/mcL (140-400); Red Cell Distribution Width 15.3 % (11.5-14.5); Segmented Neutrophils % 49.8 %
[2018-05-22 02:23] LABS: Calcium 8.5 mg/dL (8.6-10.3); Potassium 3.6 mEq/L (3.5-5.1)
[2018-05-22] MEDS ORDERED: hydrALAZINE 25 MG TABLET PO SCH (04:00)
[2018-05-22] MEDS: Ascorbic Acid 500 MG TABLET PO SCH (06:32)
[2018-05-22] MEDS: cloNIDine HCl 0.1 MG TABLET PO SCH ×3 (06:33→20:27)
[2018-05-22] MEDS: *HR* Heparin 5,000 UNIT/ML VIAL SQ SCH ×2 (06:33→16:15)
[2018-05-22] MEDS: Bumetanide 1 MG/4 ML VIAL IVP SCH ×2 (09:05→16:14)
[2018-05-22] MEDS: Magnesium Oxide 400 MG TABLET PO SCH (09:06)
[2018-05-22] MEDS: Sennosides/Docusate Sodium TABLET PO SCH ×2 (09:07→20:27)
[2018-05-22] MEDS: Cholecalciferol (D-3) 1,000 UNIT TABLET PO SCH (09:08)
[2018-05-22] MEDS: Lactobacillus 1 EACH CAP.SPRINK PO SCH ×2 (09:08→20:27)
[2018-05-22] MEDS: (Lubiprostone [Amitiza] 8 MCG) PO SCH (09:09)
[2018-05-22] MEDS: Fluticasone Propionate Nasal 50 MCG/SPRAY BOTTLE NS SCH (09:10)
--- NOTE | 2018-05-22 11:23 | Internal Med Progress Note ---
Hospitalist Progress Note - Encounter Date of Encounter: 05/22/18 Time of Encounter: 11:20 - Subjective Interval History: Patient continued to complain of right leg pain worse with ambulation, venous Doppler lower extremities were negative, patient denies any fever or chills. - Exam Vitals: Temp Pulse Resp BP Pulse Ox 97.6 F 58 15 132/66 94 05/22/18 06:28 05/22/18 06:28 05/22/18 06:28 05/22/18 06:28 05/22/18 09:00 Exam: PHYSICAL EXAMINATION: GENERAL APPEARANCE: The patient is alert, oriented and in no acute distress. HEENT: Head is normocephalic. The sinuses are nontender. Pupils are equal and reactive. The nares are patent. Oropharynx clear without lesions. NECK: Supple without lymphadenopathy. HEART: Regular rate and rhythm. LUNGS: No crackles or wheezes are heard. ABDOMEN: Soft, nontender, nondistended with good bowel sounds heard. Inguinal area is normal. EXTREMITIES: Marked improvement of erythema right lower extremities, tenderness right tibia and mid foot NEUROLOGICAL: Gross nonfocal. SKIN: Warm and dry without any rash. - Assessment and Plan (1) Type 2 diabetes mellitus Current Visit: No Status: Chronic (2) Gout Current Visit: No Status: Chronic (3) Hypertension Current Visit: No Status: Chronic (4) CKD (chronic kidney disease) stage 3, GFR 30-59 ml/min Current Visit: No Status: Chronic (5) Hypokalemia Current Visit: Yes Status: Acute (6) Cellulitis Current Visit: Yes Status: Acute (7) Diastolic CHF Current Visit: No Status: Chronic (8) COPD (chronic obstructive pulmonary disease) Current Visit: No Status: Chronic - Summary of Assessment and Plan Summary of Assessment and Plan: With persistent pain right leg And right foot, cannot rule out stress fracture will check x-ray right foot as well as check x-ray right leg. Continue current antibiotic, awaiting final blood culture, PTOT to evaluate. Continue diuretics , check renal function at a.m. Will check MRSA screening - Time Spent with Patient Total time spent is greater than 50% in coordination of care (as documented) at patient's floor/unit and/or counseling patient: Internal Medicine: Result - Labs CBC & Chem 7: 05/22/18 01:18 05/22/18 01:18 Labs: Short CBC 05/22/18 Range/Units 01:18 WBC 5.2 (4.3-11.1) K/mcL Hgb 9.5 L (11.5-15.4) g/dL Hct 30.8 L (35.3-44.9) % Plt Count 120 L (140-400) K/mcL Neutrophils # 2.6 (1.6-8.9) K/mcL BMP 05/22/18 01:18 Sodium 140 Potassium 3.6 Chloride 104 Carbon Dioxide 29 BUN 22 Creatinine 1.52 H Glucose 131 H Calcium 8.5 L - ABG Interpretation ABG results: PT/INR, D-dimer PT 11.1 Seconds (9.4-12.1) 05/21/18 13:44 Consult Discharge Plan - Plan Referrals: Rita Zhao CNP [Primary Care Provider] - 05/28/18 3:00 pm (1) Type 2 diabetes mellitus Qualifiers: Diabetes mellitus chcf insulin use: without entry level programmer use Diabetes mellitus complication status: with kidney complications Diabetes mellitus complication detail: with chronic kidney disease Chronic kidney disease stage: stage 3 (moderate) Qualified Code(s): E11.22 - Type 2 diabetes mellitus with diabetic chronic kidney disease; N18.3 - Chronic kidney disease, stage 3 ( moderate); N18.3 - Chronic kidney disease, stage 3 (moderate) (2) Gout Qualifiers: Gout site: unspecified site Gout etiology: unspecified cause Chronicity: chronic Presence of tophus: without tophus Qualified Code(s): M1A.9XX0 - Chronic gout, unspecified, without tophus (tophi) (3) Hypertension Qualifiers: Hypertension type: essential hypertension Qualified Code(s): I10 - Essential (primary) hypertension (6) Cellulitis Qualifiers: Site of cellulitis: unspecified site Qualified Code(s): L03.90 - Cellulitis, unspecified (7) Diastolic CHF Qualifiers: Heart failure chronicity: chronic Qualified Code(s): I50.32 - Chronic diastolic (congestive) heart failure (8) COPD (chronic obstructive pulmonary disease) Qualifiers: COPD type: unspecified COPD Qualified Code(s): J44.9 - Chronic obstructive pulmonary disease, unspecified
[2018-05-22] MEDS: hydrALAZINE 25 MG TABLET PO SCH ×2 (14:10→20:26)
--- NOTE | 2018-05-22 17:43 | Electrocardiograph Report ---
[facility] [place] [facility] Test Date: 2018-05-21 Pat Name: Sherice Howard Department: [id number] Room: 3A14 Gender: F Welfare Director: : 1940 Requested By: [id number] Order Number: [id number] Reading MD: Gustabo Canales Measurements Intervals M[place]ar[place] Rate: 73 P: 86 CO: 156 QRS: 119 QRSD: 105 T: 68 QT: 447 QTc: 493 Interpretive Statements Sinus rhythm Probable left atrial enlargement Right axis deviation Borderline prolonged QT interval Electronically Signed On 05-22-2018 17:41:48 EDT by Gustabo Canales
[2018-05-22] MEDS: Famotidine 20 MG TABLET PO SCH (20:27)
[2018-05-23] MEDS: *HR* Heparin 5,000 UNIT/ML VIAL SQ SCH ×2 (05:17→17:40)
[2018-05-23] MEDS: Ascorbic Acid 500 MG TABLET PO SCH ×2 (05:27→05:38)
[2018-05-23] MEDS: cloNIDine HCl 0.1 MG TABLET PO SCH ×5 (05:27→20:23)
[2018-05-23] MEDS: Sennosides/Docusate Sodium TABLET PO SCH ×2 (08:16→20:25)
[2018-05-23] MEDS: Cholecalciferol (D-3) 1,000 UNIT TABLET PO SCH (08:17)
[2018-05-23] MEDS: Lactobacillus 1 EACH CAP.SPRINK PO SCH ×2 (08:18→20:23)
[2018-05-23] MEDS: Magnesium Oxide 400 MG TABLET PO SCH (08:18)
[2018-05-23] MEDS: hydrALAZINE 25 MG TABLET PO SCH ×3 (08:18→20:22)
[2018-05-23] MEDS: Bumetanide 1 MG/4 ML VIAL IVP SCH (08:19)
[2018-05-23] MEDS: Fluticasone Propionate Nasal 50 MCG/SPRAY BOTTLE NS SCH (10:07)
[2018-05-23 13:31] LABS: Basophils % 0.3 %; Eosinophils # 0.2 K/mcL (0.0-0.6); Eosinophils % 3.4 %; Hematocrit 32.5 % (35.3-44.9); Immature Granulocytes % 0.3 % (0-4); Lymphocytes # 1.4 K/mcL (0.6-4.6); Lymphocytes % 24.8 %; Mean Corpuscular HGB Conc 30.8 g/dL (31.6-35.5); Mean Corpuscular Hemoglobin 28.7 pg (28.0-33.3); Mean Corpuscular Volume 93.4 fL (83.0-100.0); Mean Platelet Volume 10.7 fL (9.4-12.4); Monocytes # 0.5 K/mcL (0.0-1.3); Monocytes % 8.1 %; Neutrophils # 3.7 K/mcL (1.6-8.9); Platelet Count 122 K/mcL (140-400); Red Blood Count 3.48 M/mcL (3.82-4.97); Red Cell Distribution Width 15.1 % (11.5-14.5); Segmented Neutrophils % 63.1 %
[2018-05-23 13:50] LABS: Calcium 8.7 mg/dL (8.6-10.3); Potassium 3.1 mEq/L (3.5-5.1)
--- NOTE | 2018-05-23 15:41 | Internal Med Progress Note ---
Hospitalist Progress Note - Encounter Date of Encounter: 05/23/18 Time of Encounter: 15:39 - Subjective Interval History: Patient has persistent elevation of BP today , No CP or sob , No fever or chills , No motor or sensory changes - Exam Vitals: Temp Pulse Resp BP Pulse Ox 98.0 F 91 18 143/74 95 05/23/18 14:37 05/23/18 14:37 05/23/18 14:37 05/23/18 14:37 05/23/18 14:37 Exam: PHYSICAL EXAMINATION: GENERAL APPEARANCE: The patient is alert, oriented and in no acute distress. HEENT: Head is normocephalic. The sinuses are nontender. Pupils are equal and reactive. The nares are patent. Oropharynx clear without lesions. NECK: Supple without lymphadenopathy. HEART: Regular rate and rhythm. LUNGS: No crackles or wheezes are heard. ABDOMEN: Soft, nontender, nondistended with good bowel sounds heard. Inguinal area is normal. EXTREMITIES: No erythema right lower extremities, tenderness right tibia and mid foot NEUROLOGICAL: Gross non focal. SKIN: Warm and dry without any rash. - Assessment and Plan (1) Type 2 diabetes mellitus Current Visit: No Status: Chronic (2) Hypertension Current Visit: No Status: Chronic (3) CKD (chronic kidney disease) stage 3, GFR 30-59 ml/min Current Visit: No Status: Chronic (4) Hypokalemia Current Visit: Yes Status: Acute (5) Cellulitis Current Visit: Yes Status: Acute (6) Diastolic CHF Current Visit: No Status: Chronic - Summary of Assessment and Plan Summary of Assessment and Plan: Patient is on multiple medication for persistent hypertension, counseling patient to follow-up with nephrology endocrinology for further workup for secondary hypertension. Hold Bumex today in view of worsening renal function . Replace potassium, will add hydralazine 10 mg every 4 hours as needed for systolic blood pressure more than 150. Possible discharge next a.m. on oral antibiotic - Time Spent with Patient Total time spent is greater than 50% in coordination of care (as documented) at patient's floor/unit and/or counseling patient: 25 - 35 minutes Internal Medicine: Result - Labs CBC & Chem 7: 05/23/18 13:02 05/23/18 13:02 Labs: Short CBC 05/23/18 Range/Units 13:02 WBC 5.8 (4.3-11.1) K/mcL Hgb 10.0 L (11.5-15.4) g/dL Hct 32.5 L (35.3-44.9) % Plt Count 122 L (140-400) K/mcL Neutrophils # 3.7 (1.6-8.9) K/mcL BMP 05/23/18 13:02 Sodium 141 Potassium 3.1 L Chloride 105 Carbon Dioxide 28 BUN 22 Creatinine 1.63 H Glucose 161 H Calcium 8.7 - ABG Interpretation ABG results: PT/INR, D-dimer PT 11.1 Seconds (9.4-12.1) 05/21/18 13:44 Consult Discharge Plan - Plan Referrals: Rita Zhao, DONNA [Primary Care Provider] - 05/28/18 3:00 pm (1) Type 2 diabetes mellitus Qualifiers: Diabetes mellitus intermediate school teacher insulin use: without intermediate school teacher use Diabetes mellitus complication status: with kidney complications Diabetes mellitus complication detail: with chronic kidney disease Chronic kidney disease stage: stage 3 (moderate) Qualified Code(s): E11.22 - Type 2 diabetes mellitus with diabetic chronic kidney disease; N18.3 - Chronic kidney disease, stage 3 ( moderate); N18.3 - Chronic kidney disease, stage 3 (moderate) (2) Hypertension Qualifiers: Hypertension type: other secondary hypertension Qualified Code(s): I15.8 - Other secondary hypertension (5) Cellulitis Qualifiers: Site of cellulitis: unspecified site Qualified Code(s): L03.90 - Cellulitis, unspecified (6) Diastolic CHF Qualifiers: Heart failure chronicity: chronic Qualified Code(s): I50.32 - Chronic diastolic (congestive) heart failure
[2018-05-23] MEDS: Aspirin 81 MG TAB.CHEW PO SCH (17:40)
[2018-05-23] MEDS: Famotidine 20 MG TABLET PO SCH (20:26)
[2018-05-24] MEDS: *HR* Heparin 5,000 UNIT/ML VIAL SQ SCH (06:20)
[2018-05-24] MEDS: Ascorbic Acid 500 MG TABLET PO SCH ×2 (06:21→09:05)
[2018-05-24] MEDS ORDERED: hydrALAZINE 25 MG TABLET PO ONE (08:49)
[2018-05-24] MEDS: cloNIDine HCl 0.1 MG TABLET PO SCH (09:00)
[2018-05-24] MEDS: hydrALAZINE 25 MG TABLET PO SCH (09:00)
[2018-05-24] MEDS: Lactobacillus 1 EACH CAP.SPRINK PO SCH (09:01)
[2018-05-24] MEDS: Cholecalciferol (D-3) 1,000 UNIT TABLET PO SCH (09:01)
[2018-05-24] MEDS: Sennosides/Docusate Sodium TABLET PO SCH (09:01)
[2018-05-24] MEDS: Magnesium Oxide 400 MG TABLET PO SCH (09:02)
[2018-05-24] MEDS: Fluticasone Propionate Nasal 50 MCG/SPRAY BOTTLE NS SCH (09:02)
[2018-05-24 09:37] LABS: Calcium 8.7 mg/dL (8.6-10.3); Potassium 3.1 mEq/L (3.5-5.1)
--- NOTE | 2018-05-24 10:04 | Discharge Summary ---
- NOTES TO OUTPATIENT PROVIDER Notes to Outpatient Provider: Patient was admitted with cellulitis lower extremities. Blood culture so far is tentative continue please follow up on final blood culture, patient was placed on clindamycin. Orders not resulted at time of discharge: Pending orders 05/21/18 18:25 Culture,Blood [BC] Routine 05/23/18 12:15 MRSA Surveillance Screen [MOLMIC] Routine 05/25/18 04:00 Vancomycin,Random AM 0400 Date of Encounter: 05/24/18 Time of Encounter: 09:00 - Discharge Diagnosis (1) Type 2 diabetes mellitus Priority: Secondary Status: Chronic Qualifiers: Diabetes mellitus assisted insulin use: without lobsterman use Diabetes mellitus complication status: with kidney complications Diabetes mellitus complication detail: with chronic kidney disease Chronic kidney disease stage : stage 3 (moderate) Qualified Code(s): E11.22 - Type 2 diabetes mellitus with diabetic chronic kidney disease; N18.3 - Chronic kidney disease, stage 3 ( moderate) (2) Hypertension Priority: Secondary Status: Chronic Qualifiers: Hypertension type: other secondary hypertension Qualified Code(s): I15.8 - Other secondary hypertension (3) CKD (chronic kidney disease) stage 3, GFR 30-59 ml/min Priority: Secondary Status: Chronic (4) Hypokalemia Priority: Primary Status: Acute (5) Cellulitis Priority: Primary Status: Acute Qualifiers: Site of cellulitis: unspecified site Qualified Code(s): L03.90 - Cellulitis , unspecified (6) Diastolic CHF Priority: Secondary Status: Chronic Qualifiers: Heart failure chronicity: chronic Qualified Code(s): I50.32 - Chronic diastolic (congestive) heart failure Hospital course: Ms. Howard is a 78 year old female with past medical history of CHF, COPD, diabetes, and chronic renal disease presented via EMS for evaluation of bilateral lower extremity swelling and erythema right lower extremities. venous Doppler of the lower extremities was negative .At the ED, her blood pressure was notably high, labs revealed hemoglobin 9.7, potassium 3.2, borderline BNP, elevated creatinine and BUN. DVT study to both lower extremities were negative. We will start patient on vancomycin continue to monitor patient during hospitalization, patient had multi-drug allergy, blood culture so far is negative, patient is afebrile, her blood pressure was poorly controlled medication was adjusted, discussed with patient about follow-up with endocrinology and nephrology for possible workup for secondary hypertension hyperaldosteronism. Patient had hypokalemia, potassium was replaced counseling about ordered potassium supplement. With her signs of fluid overload patient was placed on Bumex IV instead of oral, Once condition stable patient discharged home in stable condition, her swelling resolved with her erythema lower extremities resolved x-ray tibia and ankle negative, patient had right knee swelling with loose body no evidence of gout patient stated she is not a candidate for surgery she was seen by orthopedic the past. May consider follow- up with orthopedic as an outpatient for knee joint aspiration to help the patient was mobility and function. Discharge discussed with: patient, nurse - Time Spent with Patient Total time spent providing and/or coordinating discharge services: Greater than 30 minutes - Discharge Medications Prescriptions: Clindamycin [Cleocin] 300 mg PO TID #30 capsule Lactobacillus [Culturelle] 1 each PO TID #30 cap.sprink Home Medications: Oxygen 2 l NS AD 10/22/16 [History] Fluticasone Propionate Nasal [Flonase] 2 spr NS QAM 07/17/17 [History] Allopurinol [Zyloprim 100 MG] 100 mg PO DAILY #30 tablet 08/28/17 [Rx] Ascorbic Acid [Vitamin C] 500 mg PO DAILY@0630 #30 tablet 08/28/17 [Rx] Ferrous Sulfate 325 mg PO DAILY@0630 #30 tablet 08/28/17 [Rx] Labetalol [Trandate] 200 mg PO BID #120 tablet 08/28/17 [Rx] Magnesium Oxide [Mag-Ox] 400 mg PO DAILY #7 tablet 08/28/17 [Rx] cloNIDine HCl [Clonidine HCl] 0.6 mg PO Q8H #180 tab 08/28/17 [Rx] Cholecalciferol (D-3) [Vitamin D] 1,000 unit PO DAILY 09/11/17 [History] Promethazine HCl 12.5 mg PO Q6H PRN 11/11/17 [History] Losartan [Cozaar] 25 mg PO BID 04/06/18 [History] Lubiprostone [Amitiza] 8 mcg PO BID 04/06/18 [History] Pantoprazole Sodium [Protonix] 40 mg PO QDPC #30 tablet 04/06/18 [Rx] Sennosides/Docusate Sodium [Senna Plus] 2 each PO BID tablet 04/06/18 [Rx] Albuterol Sulfate [Albuterol Inhaler] 2 puff IH Q4H PRN #1 inhaler 04/24/18 [Rx] Aspirin 81 mg PO Q48H 365 Days tab.chew 04/24/18 [Rx] Lactobacillus [Culturelle] 1 each PO BID #6 cap.sprink 04/24/18 [Rx] Ranitidine HCl [Zantac] 300 mg PO HS #30 tablet 05/03/18 [Rx] Bumetanide 0.5 mg PO DAILY 05/21/18 [History] Hydralazine HCl 50 mg PO TID 05/21/18 [History] Sertraline [Zoloft] 50 mg PO HS 05/21/18 [History] Acetaminophen [Tylenol] 650 mg PO Q6HR PRN #0 tablet 05/24/18 [Rx] Clindamycin [Cleocin] 300 mg PO TID #30 capsule 05/24/18 [Rx] Lactobacillus [Culturelle] 1 each PO TID #30 cap.sprink 05/24/18 [Rx] Potassium Chloride [K-Tab ER] 20 meq PO TID 365 Days tablet.er 05/24/18 [Rx] Allergies/Adverse Reactions: 3 Allergy/AdvReac Type Severity Reaction Status Date / Time Amoxicillin Allergy Rash Verified 05/03/18 18:14 atorvastatin [From Lipitor] Allergy See Verified 05/03/18 18:14 Comments cefdinir [From Omnicef] Allergy Vomiting Verified 05/03/18 18:14 cephalexin [From Keflex] Allergy See Verified 05/03/18 18:14 Comments Cortisone Allergy Redness of Verified 05/03/18 18:14 Skin doxycycline Allergy See Verified 05/03/18 18:14 Comments Erythromycin Base Allergy Cramping Verified 05/03/18 18:14 of the Muscles iodine Allergy SHAKING Verified 05/03/18 18:14 levofloxacin [From Levaquin] Allergy LIP Verified 05/03/18 18:14 SWELLING sitagliptin [From Januvia] Allergy Difficulty Verified 05/03/18 18:14 Breathing sulfamethoxazole Allergy Rash Verified 05/03/18 18:14 [From Bactrim] trimethoprim [From Bactrim] Allergy Rash Verified 05/03/18 18:14 amlodipine [From Norvasc] AdvReac SEE COMMENT Verified 05/03/18 18:14 cefuroxime [From Ceftin] AdvReac MUSCLE Verified 05/03/18 18:14 CRAMPS enalaprilat [From Vasotec] AdvReac Cough Verified 05/03/18 18:14 fluoxetine [From Prozac] AdvReac SEE COMMENT Verified 05/03/18 18:14 isosorbide [From Imdur] AdvReac Rash Verified 05/03/18 18:14 metoprolol AdvReac Dizziness Verified 05/03/18 18:14 nifedipine AdvReac Headache Verified 05/03/18 18:14 nystatin AdvReac See Verified 05/03/18 18:14 Comments Oxycodone AdvReac Headache Verified 05/03/18 18:14 Paroxetine [From Paxil] AdvReac CHILLS AND Verified 05/03/18 18:14 ITCH Prazosin AdvReac TACHYCARDIA Verified 05/03/18 18:14 Saxagliptin [From Onglyza] AdvReac UNKNOWN Verified 05/03/18 18:14 PER PT simvastatin [From Zocor] AdvReac MUSCLE Verified 05/03/18 18:14 WEAKNESS hydrin Allergy See Uncoded 05/03/18 18:14 Comments Date of admission: 05/21/18 16:47 Primary care physician: Rita Zhao CNP Consults: 05/21/18 20:31 Consult to Personal Lines Insurance Agent [CONS] Routine Reason for SW Consult: Patient reports possibly needing rehab upon discharge 05/22/18 12:58 Consult to Physical Therapy [CONS] Routine Comment: Evaluate, develop and implement POC Reason for Consult: Placement evaluation Does patient have active BEDREST order?: No Is patient medically & hemodynamically stable?: Yes Patient assessed for mobility or mobilized this visit?: No - Constitutional Vitals: Temp Pulse Resp BP Pulse Ox 97.7 F 54 15 166/64 92 05/24/18 07:38 05/24/18 07:38 05/24/18 07:38 05/24/18 07:38 05/24/18 07:38 General appearance: Present: A&O X 3 Exam: as above - Head Head exam: Present: atraumatic, normocephalic - Neck Neck exam general surgery: Present: supple, trachea midline. Absent: lymphadenopathy - Cardiovascular Cardiovascular exam: Present: RRR, +S1, +S2. Absent: diastolic murmur, gallop, rubs, systolic murmur - Extremities Exam Extremities exam: Present: warm, radial pulses palpable and symmetrical. Absent : calf tenderness, cyanotic, pedal edema - Patient Status Disposition: Home, Self-Care Condition: Good Functional capacity at discharge: independent ambulation Overall status at discharge: patient is progressing back to baseline - Discharge Instructions - Diet and Activity Activity: increase activity as tolerated Diet: diabetic diet, low fat, low cholesterol
[2018-05-24] MEDS ORDERED: Potassium Chloride Elixir 20 MEQ/15 ML UDC PO ONE (10:09)
[2018-05-24 10:36] VITALS: BP 174/69
[2018-05-24 12:43] LABS: Magnesium 1.9 mg/dL (1.6-2.6)
[2018-05-24] MEDS ORDERED: Aminoglycoside Consult 1 EACH MC ONE (14:49)
== END 2018-05-24 14:50 | disposition home or self-care (01) ==
LOC: EMEROOARM 13:03 → 3ANU 13:03
PROVIDERS: ADMIT Internal Medicine; ATTEND Internal Medicine

== ENCOUNTER 2019-02-17 09:48 | Observation (INO) ==
[2019-02-17 11:14] LABS: Bilirubin,Urine Negative (Negative); Blood,Urine Negative (Negative); Clarity,Urine Clear (Clear); Color,Urine Yellow (Yellow); Glucose,Urine (UA) Normal (Normal); Ketones,Urine Negative (Negative); Leukocyte Esterase,Urine Trace (Negative); Nitrite,Urine Negative (Negative); PH,Urine 7.5 pH Units (5.0-8.0); Protein,Urine >=300 mg/dL (Neg-Trace); Specific Gravity,Urine 1.014 (1.010-1.025); Urobilinogen,Urine Normal (Normal)
[2019-02-17 11:15] LABS: Basophils % 0.5 %; Eosinophils # 0.2 K/mcL (0.0-0.6); Eosinophils % 2.1 %; Hematocrit 37.7 % (35.3-44.9); Hemoglobin 11.8 g/dL (11.5-15.4); Immature Granulocytes % 0.3 % (0-4); Lymphocytes # 1.8 K/mcL (0.6-4.6); Lymphocytes % 23.9 %; Mean Corpuscular HGB Conc 31.3 g/dL (31.6-35.5); Mean Corpuscular Hemoglobin 28.8 pg (28.0-33.3); Mean Platelet Volume 10.5 fL (9.4-12.4); Monocytes # 0.5 K/mcL (0.0-1.3); Monocytes % 6.5 %; Neutrophils # 5.2 K/mcL (1.6-8.9); Platelet Count 149 K/mcL (140-400); Red Cell Distribution Width 14.4 % (11.5-14.5); Segmented Neutrophils % 66.7 %; White Blood Count 7.7 K/mcL (4.3-11.1)
[2019-02-17 11:16] LABS: Bacteria,Urine Few per hpf (None-Few); Hyaline Casts,Urine None Seen per lpf (None-Few); RBC,Urine 0-3 per hpf (0-3); Squamous Epithelial Cell,Urine Many per lpf (None-Few)
[2019-02-17 11:35] LABS: BUN/Creatinine Ratio 15 (6-26); Blood Urea Nitrogen 23 mg/dL (8-23); Carbon Dioxide 29 mEq/L (23-29); Chloride 103 mEq/L (98-107); Ethanol < 10 mg/dL (Less than 10); Glucose 148 mg/dL (70-105); Osmolality,Calculated 298 (280-300); Sodium 141 mEq/L (136-145); eGFR For African Americans 39 (> 60); eGFR For Non-African Americans 32 (> 60)
[2019-02-17 11:50] LABS: Creatine Kinase 54 Units/L (30-223)
[2019-02-17 11:51] LABS: Troponin I < 0.03 ng/mL (< 0.04)
[2019-02-17] MEDS ORDERED: Morphine Sulfate 2 MG/ML SYRINGE IVP ONE (11:51)
[2019-02-17] MEDS ORDERED: Ondansetron 4 MG/2 ML VIAL IVP ONE (13:31)
[2019-02-17] MEDS ORDERED: cloNIDine HCl 0.1 MG TABLET PO STA (13:38)
[2019-02-17] MEDS ORDERED: hydrALAZINE 25 MG TABLET PO ONE (13:38)
[2019-02-17] MEDS ORDERED: Naloxone 0.4 MG/ML INJ IVP PRN ×2 (14:41→17:43)
[2019-02-17] MEDS ORDERED: *HR* Labetalol 20 MG/4 ML SYRINGE IVP ONE (15:16)
[2019-02-17] MEDS ORDERED: *HR* Promethazine 25 MG/ML VIAL IVP ONE (15:16)
[2019-02-17] MEDS ORDERED: Melatonin 3 MG TABLET PO PRN (17:41)
[2019-02-17] MEDS ORDERED: Acetaminophen 325 MG TABLET PO PRN (17:43)
[2019-02-17] MEDS ORDERED: Morphine Sulfate 2 MG/ML SYRINGE IVP PRN (17:45)
[2019-02-17] MEDS: Ondansetron 4 MG/2 ML VIAL IVP SCH (18:47)
[2019-02-17] MEDS ORDERED: D5% in 0.9% NACL 1,000 ML IVC SCH (19:45)
[2019-02-17] MEDS: cloNIDine HCl 0.1 MG TABLET PO SCH (19:49)
[2019-02-17] MEDS: hydrALAZINE 25 MG TABLET PO SCH ×2 (19:56→23:02)
[2019-02-17] MEDS ORDERED: 0.9 % Sodium Chloride 1,000 ML IVC SCH (20:30)
[2019-02-18] MEDS: Ondansetron 4 MG/2 ML VIAL IVP SCH ×4 (00:17→17:40)
[2019-02-18 07:02] LABS: Basophils % 0.5 %; Eosinophils # 0.1 K/mcL (0.0-0.6); Eosinophils % 1.4 %; Hematocrit 36.5 % (35.3-44.9); Hemoglobin 11.2 g/dL (11.5-15.4); Immature Granulocytes % 0.3 % (0-4); Lymphocytes # 2.2 K/mcL (0.6-4.6); Lymphocytes % 33.7 %; Mean Corpuscular HGB Conc 30.7 g/dL (31.6-35.5); Mean Corpuscular Hemoglobin 28.9 pg (28.0-33.3); Mean Corpuscular Volume 94.3 fL (83.0-100.0); Mean Platelet Volume 11.2 fL (9.4-12.4); Monocytes # 0.6 K/mcL (0.0-1.3); Monocytes % 8.7 %; Neutrophils # 3.6 K/mcL (1.6-8.9); Platelet Count 146 K/mcL (140-400); Red Blood Count 3.87 M/mcL (3.82-4.97); Red Cell Distribution Width 14.4 % (11.5-14.5); Segmented Neutrophils % 55.4 %; White Blood Count 6.6 K/mcL (4.3-11.1)
[2019-02-18 07:17] LABS: Albumin 3.3 g/dL (3.5-5.7); Albumin/Globulin Ratio 1.4 (1.1-2.2); Bilirubin,Total 0.4 mg/dL (0.3-1.0); Calcium 8.7 mg/dL (8.6-10.3); Globulin 2.3 g/dL (2.4-3.5); Magnesium 2.2 mg/dL (1.6-2.6); Potassium 3.8 mEq/L (3.5-5.1); Total Protein 5.6 g/dL (6.4-8.9)
[2019-02-18] MEDS: hydrALAZINE 25 MG TABLET PO SCH ×3 (08:58→23:19)
[2019-02-18] MEDS: cloNIDine HCl 0.1 MG TABLET PO SCH ×3 (08:58→20:31)
[2019-02-18] MEDS ORDERED: 0.9 % Sodium Chloride 1,000 ML IVC SCH (11:28)
[2019-02-18] MEDS ORDERED: 0.9 % Sodium Chloride 500 ML IVC ONE (11:28)
[2019-02-18] MEDS ORDERED: D5% in Water 1,000 ML IVC PRN (17:01)
[2019-02-18] MEDS ORDERED: Dextrose Gel 15 GM/37.5 ML TUBE PO PRN ×2 (17:01)
[2019-02-18] MEDS ORDERED: *HR* Dextrose 50 % in Water (Syg) 50 ML SYRINGE IVP PRN (17:01)
[2019-02-18] MEDS: Insulin LISPRO 300 UNITS/3 ML VIAL SQ SCH (17:37)
[2019-02-18] MEDS ORDERED: Insulin LISPRO 300 UNITS/3 ML VIAL SQ SCH (21:00)
[2019-02-18] MEDS ORDERED: *HR* Promethazine 25 MG/ML VIAL IVP PRN (21:57)
[2019-02-19] MEDS: Insulin LISPRO 300 UNITS/3 ML VIAL SQ SCH ×2 (08:02→12:17)
[2019-02-19] MEDS: cloNIDine HCl 0.1 MG TABLET PO SCH (10:01)
[2019-02-19] MEDS: hydrALAZINE 25 MG TABLET PO SCH (10:01)
[2019-02-19 11:22] VITALS: BP 120/65
== END 2019-02-19 16:22 | disposition home or self-care (01) ==
LOC: 3BNU 09:48 → EMEROOARM 09:48 → SUATTDRO 15:00 → 3BNU 16:40
PROVIDERS: ADMIT Internal Medicine; ATTEND Family Medicine

== ENCOUNTER 2019-07-07 01:06 | Inpatient (IN) ==
[2019-07-07] MEDS ORDERED: Isovue-370 500 ML BOTTLE IVP ONE (01:45)
[2019-07-07 04:37] LABS: Troponin I < 0.03 ng/mL (< 0.04)
[2019-07-07 04:47] LABS: Alanine Aminotransferase 7 Units/L (7-52); Albumin 3.3 g/dL (3.5-5.7); Albumin/Globulin Ratio 1.4 (1.1-2.2); Alkaline Phosphatase 115 Units/L (34-104); Aspartate Amino Transferase 16 Units/L (13-39); Bilirubin,Direct 0.1 mg/dL (0.0-0.2); Bilirubin,Indirect 0.3 mg/dL (0.0-1.0); Bilirubin,Total 0.4 mg/dL (0.3-1.0); Globulin 2.4 g/dL (2.4-3.5); Magnesium 2.1 mg/dL (1.6-2.6); Total Protein 5.7 g/dL (6.4-8.9)
[2019-07-07] MEDS ORDERED: Naloxone 0.4 MG/ML INJ IVP PRN (08:07)
[2019-07-07] MEDS ORDERED: *HR* Dextrose 50 % in Water (Syg) 50 ML SYRINGE IVP PRN (08:09)
[2019-07-07] MEDS ORDERED: D5% in Water 1,000 ML IVC PRN (08:09)
[2019-07-07] MEDS ORDERED: Dextrose Gel 15 GM/37.5 ML TUBE PO PRN ×2 (08:09)
[2019-07-07] MEDS ORDERED: hydrALAZINE 25 MG TABLET PO PRN (08:13)
[2019-07-07] MEDS: Insulin LISPRO 300 UNITS/3 ML VIAL SQ SCH ×3 (09:26→16:56)
[2019-07-07] MEDS: Bumetanide 1 MG TABLET PO SCH (10:31)
[2019-07-07] MEDS: Aspirin 81 MG TAB.CHEW PO SCH (10:31)
[2019-07-07] MEDS: cloNIDine HCl 0.1 MG TABLET PO SCH ×3 (10:31→21:12)
[2019-07-07 12:03] LABS: Adenovirus Not Detected (Not Detect); Bordetella Pertussis Not Detected (Not Detect); Chlamydophila pneumoniae Not Detected (Not Detect); Coronavirus 229E Not Detected (Not Detect); Coronavirus HKU1 Not Detected (Not Detect); Coronavirus NL63 Not Detected (Not Detect); Coronavirus OC43 Not Detected (Not Detect); Human Metapneumovirus Not Detected (Not Detect); Human Rhinovirus/Enterovirus Not Detected (Not Detect); Influenza A Subtype 2009 H1 Not Detected (Not Detect); Influenza A Untypeable Not Detected (Not Detect); Influenza B Not Detected (Not Detect); Mycoplasma pneumoniae Not Detected (Not Detect); Parainfluenza Virus 1 Not Detected (Not Detect); Parainfluenza Virus 2 Not Detected (Not Detect); Parainfluenza Virus 3 Not Detected (Not Detect); Parainfluenza Virus 4 Not Detected (Not Detect); Respiratory Syncytial Virus Not Detected (Not Detect)
[2019-07-07 14:51] LABS: C-Reactive Protein < 5 mg/L (Less than 10); Creatine Kinase 53 Units/L (30-223); Lactate Dehydrogenase 162 Units/L (140-271)
[2019-07-07] MEDS: hydrALAZINE 25 MG TABLET PO SCH ×2 (15:00→21:11)
[2019-07-07] MEDS: *HR* Heparin 5,000 UNIT/ML VIAL SQ SCH (21:12)
[2019-07-07] MEDS ORDERED: *HR* Metoprolol 5 MG/5 ML VIAL IVP ONE (23:25)
[2019-07-08] MEDS: *HR* Heparin 5,000 UNIT/ML VIAL SQ SCH ×3 (04:04→20:54)
[2019-07-08 05:22] LABS: Basophils % 0.5 %; Eosinophils # 0.2 K/mcL (0.0-0.6); Eosinophils % 2.8 %; Hematocrit 34.1 % (35.3-44.9); Hemoglobin 10.6 g/dL (11.5-15.4); Immature Granulocytes % 0.2 % (0-4); Lymphocytes # 1.7 K/mcL (0.6-4.6); Lymphocytes % 26.4 %; Mean Corpuscular HGB Conc 31.1 g/dL (31.6-35.5); Mean Corpuscular Hemoglobin 29.4 pg (28.0-33.3); Mean Corpuscular Volume 94.7 fL (83.0-100.0); Mean Platelet Volume 11.3 fL (9.4-12.4); Monocytes # 0.7 K/mcL (0.0-1.3); Neutrophils # 3.8 K/mcL (1.6-8.9); Platelet Count 126 K/mcL (140-400); Red Cell Distribution Width 14.1 % (11.5-14.5); Segmented Neutrophils % 59.1 %; White Blood Count 6.4 K/mcL (4.3-11.1)
[2019-07-08 05:48] LABS: Calcium 8.7 mg/dL (8.6-10.3); Potassium 3.9 mEq/L (3.5-5.1)
[2019-07-08] MEDS: Bumetanide 1 MG TABLET PO SCH (08:33)
[2019-07-08] MEDS: cloNIDine HCl 0.1 MG TABLET PO SCH ×3 (08:33→20:44)
[2019-07-08] MEDS: Aspirin 81 MG TAB.CHEW PO SCH (08:36)
[2019-07-08] MEDS: hydrALAZINE 25 MG TABLET PO SCH ×3 (08:38→20:45)
[2019-07-08] MEDS: Insulin LISPRO 300 UNITS/3 ML VIAL SQ SCH ×3 (08:40→16:10)
[2019-07-08] MEDS ORDERED: Trolamine Salicylate/Aloe Vera 85 APPL/85 GM TUBE TP PRN (10:48)
[2019-07-08] MEDS: Ondansetron 4 MG/2 ML VIAL IVP PRN (14:36)
[2019-07-09 01:35] LABS: Calcium 8.8 mg/dL (8.6-10.3); Potassium 3.6 mEq/L (3.5-5.1)
[2019-07-09] MEDS: *HR* Heparin 5,000 UNIT/ML VIAL SQ SCH ×2 (06:07→14:29)
[2019-07-09] MEDS: Insulin LISPRO 300 UNITS/3 ML VIAL SQ SCH ×3 (09:06→17:12)
[2019-07-09] MEDS: cloNIDine HCl 0.1 MG TABLET PO SCH ×3 (09:06→22:12)
[2019-07-09] MEDS: Aspirin 81 MG TAB.CHEW PO SCH (09:09)
[2019-07-09] MEDS: hydrALAZINE 25 MG TABLET PO SCH ×3 (09:09→18:07)
[2019-07-09] MEDS ORDERED: 0.9 % Sodium Chloride 1,000 ML IVC SCH (10:00)
[2019-07-09] MEDS ORDERED: Acetaminophen/Aspirin/Caffeine TABLET PO PRN (16:40)
[2019-07-10] MEDS: *HR* Heparin 5,000 UNIT/ML VIAL SQ SCH (00:31)
[2019-07-10] MEDS: Ondansetron 4 MG/2 ML VIAL IVP PRN (01:23)
[2019-07-10 07:40] LABS: Calcium 8.4 mg/dL (8.6-10.3); Potassium 3.8 mEq/L (3.5-5.1)
[2019-07-10] MEDS: Insulin LISPRO 300 UNITS/3 ML VIAL SQ SCH (10:34)
[2019-07-10] MEDS: Aspirin 81 MG TAB.CHEW PO SCH (10:41)
[2019-07-10] MEDS: hydrALAZINE 25 MG TABLET PO SCH (10:41)
[2019-07-10] MEDS: cloNIDine HCl 0.1 MG TABLET PO SCH (10:41)
[2019-07-10 11:56] VITALS: BP 183/76
== END 2019-07-10 15:01 | disposition home or self-care (01) | DRG 948 ==
LOC: 3BNU 01:06 → EMEROOARM 01:06 → SUATTDRO 06:22 → 3BNU 06:45
PROVIDERS: ADMIT Family Medicine; ATTEND Internal Medicine

== ENCOUNTER 2019-09-19 23:16 | Observation (INO) ==
[2019-09-20] MEDS ORDERED: Naloxone 0.4 MG/ML INJ IVP PRN ×2 (02:08→03:28)
[2019-09-20] MEDS ORDERED: Ondansetron ODT 4 MG TAB.RAPDIS SL PRN (02:08)
[2019-09-20] MEDS: 0.9 % Sodium Chloride 1,000 ML IVC SCH ×2 (03:24→11:56)
[2019-09-20] MEDS ORDERED: Acetaminophen IV 1,000 MG/100 ML INFUS..BTL IVPB ONE (03:31)
[2019-09-20] MEDS ORDERED: *HR* HYDROmorphone (PF) 1 MG/ML SYRINGE IVP PRN (03:36)
[2019-09-20] MEDS ORDERED: Gadolinium Contrast Agent (WT Based) IV PRN (03:50)
[2019-09-20 04:43] LABS: Basophils % 0.6 %; Eosinophils # 0.1 K/mcL (0.0-0.6); Hemoglobin 9.8 g/dL (11.5-15.4); Immature Granulocytes % 0.3 % (0-4); Lymphocytes # 1.3 K/mcL (0.6-4.6); Lymphocytes % 18.3 %; Mean Corpuscular HGB Conc 31.6 g/dL (31.6-35.5); Mean Corpuscular Hemoglobin 29.2 pg (28.0-33.3); Mean Corpuscular Volume 92.3 fL (83.0-100.0); Mean Platelet Volume 11.4 fL (9.4-12.4); Monocytes # 0.8 K/mcL (0.0-1.3); Monocytes % 10.8 %; Neutrophils # 4.8 K/mcL (1.6-8.9); Platelet Count 116 K/mcL (140-400); Red Blood Count 3.36 M/mcL (3.82-4.97); Red Cell Distribution Width 14.1 % (11.5-14.5); White Blood Count 6.9 K/mcL (4.3-11.1)
[2019-09-20 05:03] LABS: Calcium 8.5 mg/dL (8.6-10.3); Magnesium 2.1 mg/dL (1.6-2.6); Phosphorous 4.1 mg/dL (2.7-4.5); Potassium 3.7 mEq/L (3.5-5.1)
[2019-09-20 05:30] LABS: Vitamin B12 > 1500 pg/mL (250-1100)
[2019-09-20 05:50] LABS: Vitamin D 25 Hydroxy 37 ng/mL (30-80)
[2019-09-20 06:05] LABS: Prothrombin Time 11.6 Seconds (9.4-12.1)
[2019-09-20] MEDS: *HR* Heparin 5,000 UNIT/ML VIAL SQ SCH ×3 (06:13→21:56)
[2019-09-20] MEDS ORDERED: Acetaminophen 325 MG TABLET PO PRN (10:00)
[2019-09-20] MEDS ORDERED: D5% in Water 1,000 ML IVC PRN (12:03)
[2019-09-20] MEDS ORDERED: Dextrose Gel 15 GM/37.5 ML TUBE PO PRN ×2 (12:03)
[2019-09-20] MEDS ORDERED: *HR* Dextrose 50 % in Water (Syg) 50 ML SYRINGE IVP PRN (12:03)
[2019-09-20] MEDS ORDERED: Albuterol 2.5 MG/3 ML NEBULIZER IH PRN (16:54)
[2019-09-20] MEDS: Insulin LISPRO 300 UNITS/3 ML VIAL SQ SCH (17:18)
[2019-09-20] MEDS: cloNIDine HCl 0.1 MG TABLET PO SCH (21:55)
[2019-09-21] MEDS ORDERED: *HR* HYDROcodone/Acet 7.5/325 mg TABLET PO ONE
[2019-09-21] MEDS: *HR* Heparin 5,000 UNIT/ML VIAL SQ SCH ×3 (06:03→20:49)
[2019-09-21 08:10] LABS: Hematocrit 31.4 % (35.3-44.9); Mean Corpuscular HGB Conc 31.8 g/dL (31.6-35.5); Mean Corpuscular Hemoglobin 29.2 pg (28.0-33.3); Mean Corpuscular Volume 91.5 fL (83.0-100.0); Mean Platelet Volume 10.3 fL (9.4-12.4); Platelet Count 95 K/mcL (140-400); Red Blood Count 3.43 M/mcL (3.82-4.97); Red Cell Distribution Width 13.9 % (11.5-14.5); White Blood Count 4.9 K/mcL (4.3-11.1)
[2019-09-21] MEDS: cloNIDine HCl 0.1 MG TABLET PO SCH ×3 (08:18→20:48)
[2019-09-21] MEDS: Insulin LISPRO 300 UNITS/3 ML VIAL SQ SCH ×3 (08:19→17:51)
[2019-09-21] MEDS: Bumetanide 1 MG TABLET PO SCH (08:19)
[2019-09-21] MEDS: Cyanocobalamin (B-12) 1,000 MCG TABLET PO SCH (08:19)
[2019-09-21] MEDS: Fluticasone Propionate Nasal 50 MCG/SPRAY BOTTLE NS SCH (08:21)
[2019-09-21 08:44] LABS: Calcium 8.4 mg/dL (8.6-10.3); Potassium 3.4 mEq/L (3.5-5.1)
[2019-09-21] MEDS ORDERED: Aspirin Enteric Coated 81 MG Tablet PO SCH ×2 (09:00→21:00)
[2019-09-21] MEDS ORDERED: Cholecalciferol (D-3) 1,000 UNIT (25MCG) TABLET PO SCH (09:00)
[2019-09-21] MEDS ORDERED: QUEtiapine Fumarate 25 MG TABLET PO SCH ×2 (09:00→21:00)
[2019-09-21] MEDS ORDERED: Magnesium Oxide 400 MG TABLET PO SCH (09:00)
[2019-09-21] MEDS ORDERED: *HR* HYDROcodone/Acet 5/325 mg TABLET PO PRN (11:44)
[2019-09-21] MEDS: hydrALAZINE 25 MG TABLET PO SCH ×2 (15:13→20:48)
[2019-09-21] MEDS: Cholecalciferol (D-3) 1,000 UNIT (25MCG) TABLET PO SCH (15:14)
[2019-09-21] MEDS: Magnesium Oxide 400 MG TABLET PO SCH (15:15)
[2019-09-22 05:13] LABS: Hematocrit 30.4 % (35.3-44.9); Hemoglobin 9.7 g/dL (11.5-15.4); Mean Corpuscular HGB Conc 31.9 g/dL (31.6-35.5); Mean Corpuscular Hemoglobin 29.2 pg (28.0-33.3); Mean Corpuscular Volume 91.6 fL (83.0-100.0); Mean Platelet Volume 11.3 fL (9.4-12.4); Platelet Count 112 K/mcL (140-400); Red Blood Count 3.32 M/mcL (3.82-4.97); Red Cell Distribution Width 13.7 % (11.5-14.5); White Blood Count 5.2 K/mcL (4.3-11.1)
[2019-09-22 05:29] LABS: Calcium 8.6 mg/dL (8.6-10.3)
[2019-09-22] MEDS: *HR* Heparin 5,000 UNIT/ML VIAL SQ SCH ×2 (05:54→14:42)
[2019-09-22] MEDS: Insulin LISPRO 300 UNITS/3 ML VIAL SQ SCH ×2 (08:34→11:55)
[2019-09-22] MEDS: Fluticasone Propionate Nasal 50 MCG/SPRAY BOTTLE NS SCH (08:36)
[2019-09-22] MEDS: Bumetanide 1 MG TABLET PO SCH (08:36)
[2019-09-22] MEDS: cloNIDine HCl 0.1 MG TABLET PO SCH ×2 (08:36→14:43)
[2019-09-22] MEDS: Cyanocobalamin (B-12) 1,000 MCG TABLET PO SCH (08:36)
[2019-09-22] MEDS: hydrALAZINE 25 MG TABLET PO SCH ×2 (08:37→14:43)
[2019-09-22 11:25] VITALS: BP 159/74
[2019-09-22] MEDS: Cholecalciferol (D-3) 1,000 UNIT (25MCG) TABLET PO SCH (14:43)
[2019-09-22] MEDS: Magnesium Oxide 400 MG TABLET PO SCH (14:43)
== END 2019-09-22 17:38 ==
LOC: 3NENU → SUATTDRO 09-20 01:18
PROVIDERS: ADMIT Student in an Organized Health Care Education/Training Program; ATTEND Family Medicine

== ENCOUNTER 2019-11-04 13:13 | Inpatient (IN) ==
[2019-11-04] MEDS ORDERED: Naloxone 0.4 MG/ML INJ IVP PRN (16:43)
[2019-11-04] MEDS ORDERED: cloNIDine HCL 0.1 MG TABLET PO SCH (17:00)
[2019-11-04] MEDS ORDERED: Albuterol 2.5 MG/3 ML NEBULIZER IH PRN (17:35)
[2019-11-04] MEDS ORDERED: Dextrose Gel 15 GM/37.5 ML TUBE PO PRN ×2 (17:36)
[2019-11-04] MEDS ORDERED: *HR* Dextrose 50 % in Water (Syg) 50 ML SYRINGE IVP PRN (17:36)
[2019-11-04] MEDS ORDERED: D5% in Water 1,000 ML IVC PRN (17:36)
[2019-11-04] MEDS ORDERED: Furosemide 20 MG/2 ML VIAL IVP ONE (17:44)
[2019-11-04] MEDS: Insulin LISPRO 300 UNITS/3 ML VIAL SQ SCH ×2 (18:22→21:03)
[2019-11-04] MEDS: *HR* Heparin 5,000 UNIT/ML VIAL SQ SCH (18:28)
[2019-11-04] MEDS: Ipratropium/Albuterol Neb 3 ML IH SCH ×2 (20:35→23:34)
[2019-11-04] MEDS: cloNIDine HCL 0.1 MG TABLET PO SCH (21:01)
[2019-11-04] MEDS: hydrALAZINE 25 MG TABLET PO SCH (21:02)
[2019-11-04] MEDS: methylPREDNISolone 125 MG/2 ML VIAL IVP SCH (22:58)
[2019-11-05] MEDS: Ipratropium/Albuterol Neb 3 ML IH SCH ×5 (04:06→20:16)
[2019-11-05 05:10] LABS: Basophils % 0.1 %; Hemoglobin 10.2 g/dL (11.5-15.4); Immature Granulocytes % 1.1 % (0-4); Lymphocytes # 0.7 K/mcL (0.6-4.6); Lymphocytes % 4.9 %; Mean Corpuscular HGB Conc 30.9 g/dL (31.6-35.5); Mean Corpuscular Hemoglobin 28.3 pg (28.0-33.3); Mean Corpuscular Volume 91.4 fL (83.0-100.0); Mean Platelet Volume 11.3 fL (9.4-12.4); Monocytes # 0.4 K/mcL (0.0-1.3); Monocytes % 2.8 %; Neutrophils # 13.5 K/mcL (1.6-8.9); Platelet Count 151 K/mcL (140-400); Red Blood Count 3.61 M/mcL (3.82-4.97); Red Cell Distribution Width 14.5 % (11.5-14.5); Segmented Neutrophils % 91.1 %; White Blood Count 14.8 K/mcL (4.3-11.1)
[2019-11-05] MEDS: *HR* Heparin 5,000 UNIT/ML VIAL SQ SCH ×2 (05:25→17:14)
[2019-11-05 05:36] LABS: BUN/Creatinine Ratio 34 (6-26); Blood Urea Nitrogen 57 mg/dL (8-23); Calcium 8.3 mg/dL (8.6-10.3); Carbon Dioxide 27 mEq/L (23-29); Chloride 103 mEq/L (98-107); Glucose 231 mg/dL (70-105); Osmolality,Calculated 307 (280-300); Potassium 3.9 mEq/L (3.5-5.1); Sodium 137 mEq/L (136-145); Troponin I < 0.03 ng/mL (< 0.04); eGFR For African Americans 36 (> 60); eGFR For Non-African Americans 30 (> 60)
[2019-11-05] MEDS: hydrALAZINE 25 MG TABLET PO SCH ×3 (08:15→21:23)
[2019-11-05] MEDS: cloNIDine HCL 0.1 MG TABLET PO SCH ×3 (08:15→21:22)
[2019-11-05] MEDS: methylPREDNISolone 125 MG/2 ML VIAL IVP SCH (08:16)
[2019-11-05] MEDS: Insulin LISPRO 300 UNITS/3 ML VIAL SQ SCH ×7 (08:18→21:24)
[2019-11-05] MEDS ORDERED: Magnesium Oxide 400 MG TABLET PO SCH (10:30)
[2019-11-05] MEDS ORDERED: Azithromycin 250 MG TABLET PO ONE (10:45)
[2019-11-05] MEDS: Bumetanide 1 MG TABLET PO SCH (11:52)
[2019-11-05] MEDS ORDERED: amLODIPine 5 MG TABLET PO SCH (14:45)
[2019-11-05] MEDS: Sennosides/Docusate Sodium TABLET PO SCH (21:23)
[2019-11-06] MEDS: Ipratropium/Albuterol Neb 3 ML IH SCH ×5 (00:09→15:51)
[2019-11-06 03:01] LABS: Basophils % 0.1 %; Hematocrit 32.2 % (35.3-44.9); Hemoglobin 9.8 g/dL (11.5-15.4); Immature Granulocytes % 1.7 % (0-4); Lymphocytes # 1.2 K/mcL (0.6-4.6); Lymphocytes % 9.7 %; Mean Corpuscular HGB Conc 30.4 g/dL (31.6-35.5); Mean Corpuscular Hemoglobin 28.1 pg (28.0-33.3); Mean Corpuscular Volume 92.3 fL (83.0-100.0); Mean Platelet Volume 10.3 fL (9.4-12.4); Monocytes # 1.2 K/mcL (0.0-1.3); Monocytes % 9.6 %; Neutrophils # 9.6 K/mcL (1.6-8.9); Platelet Count 140 K/mcL (140-400); Red Blood Count 3.49 M/mcL (3.82-4.97); Red Cell Distribution Width 14.4 % (11.5-14.5); Segmented Neutrophils % 78.9 %; White Blood Count 12.2 K/mcL (4.3-11.1)
[2019-11-06 03:22] LABS: Calcium 8.3 mg/dL (8.6-10.3); Potassium 3.2 mEq/L (3.5-5.1)
[2019-11-06] MEDS: *HR* Heparin 5,000 UNIT/ML VIAL SQ SCH (05:47)
[2019-11-06] MEDS: Insulin LISPRO 300 UNITS/3 ML VIAL SQ SCH ×4 (07:32→12:10)
[2019-11-06] MEDS: Bumetanide 1 MG TABLET PO SCH (08:10)
[2019-11-06] MEDS: cloNIDine HCL 0.1 MG TABLET PO SCH ×2 (08:10→14:28)
[2019-11-06] MEDS: Sennosides/Docusate Sodium TABLET PO SCH (08:10)
[2019-11-06] MEDS: hydrALAZINE 25 MG TABLET PO SCH ×2 (08:11→14:27)
[2019-11-06] MEDS ORDERED: predniSONE 20 MG TABLET PO SCH (09:00)
[2019-11-06] MEDS ORDERED: MOM Conc 10 ML UD.LIQ PO ONE (13:12)
[2019-11-06] MEDS ORDERED: Bisacodyl 10 MG RECTAL SUPPOSITORY RC ONE (13:12)
[2019-11-06 14:27] VITALS: BP 154/65
[2019-11-06] MEDS ORDERED: Magnesium Oxide 400 MG TABLET PO SCH (15:00)
== END 2019-11-06 17:14 | disposition home or self-care (01) | DRG 291 ==
LOC: 2ANU
PROVIDERS: ADMIT Internal Medicine; ATTEND Internal Medicine

== ENCOUNTER 2020-05-12 00:55 | Observation (INO) ==
[2020-05-12 01:35] LABS: Basophils % 0.4 %; Eosinophils # 0.3 K/mcL (0.0-0.6); Eosinophils % 3.9 %; Hematocrit 25.9 % (35.3-44.9); Hemoglobin 7.8 g/dL (11.5-15.4); Immature Granulocytes % 0.4 % (0-4); Mean Corpuscular HGB Conc 30.1 g/dL (31.6-35.5); Mean Corpuscular Hemoglobin 28.6 pg (28.0-33.3); Mean Corpuscular Volume 94.9 fL (83.0-100.0); Mean Platelet Volume 11.5 fL (9.4-12.4); Monocytes # 0.7 K/mcL (0.0-1.3); Monocytes % 8.2 %; Neutrophils # 5.9 K/mcL (1.6-8.9); Platelet Count 125 K/mcL (140-400); Red Blood Count 2.73 M/mcL (3.82-4.97); Red Cell Distribution Width 14.7 % (11.5-14.5); Segmented Neutrophils % 75.1 %; White Blood Count 7.9 K/mcL (4.3-11.1)
[2020-05-12 01:36] LABS: INR 1.1; Prothrombin Time 12.4 Seconds (9.4-12.1)
[2020-05-12 01:38] LABS: Activated Partial Thrombo Time 30.4 Seconds (26.0-36.0)
[2020-05-12 01:52] LABS: BUN/Creatinine Ratio 19 (6-26); Blood Urea Nitrogen 38 mg/dL (8-23); Calcium 8.3 mg/dL (8.6-10.3); Carbon Dioxide 29 mEq/L (23-29); Chloride 105 mEq/L (98-107); Glucose 187 mg/dL (70-105); Osmolality,Calculated 304 (280-300); Potassium 3.8 mEq/L (3.5-5.1); Sodium 140 mEq/L (136-145); eGFR For African Americans 30 (> 60); eGFR For Non-African Americans 24 (> 60)
[2020-05-12 01:53] LABS: Troponin I < 0.03 ng/mL (< 0.04)
[2020-05-12] MEDS ORDERED: 0.9 % Sodium Chloride 1,000 ML IVC ONE ×2 (02:38→02:48)
[2020-05-12] MEDS ORDERED: Naloxone 0.4 MG/ML INJ IVP PRN (03:19)
[2020-05-12] MEDS ORDERED: Acetaminophen 325 MG TABLET PO ONE (03:24)
[2020-05-12] MEDS ORDERED: *HR* HYDROcodone/Acet 10/325 mg TABLET PO ONE (03:34)
[2020-05-12] MEDS ORDERED: Dextrose Gel 15 GM/37.5 ML TUBE PO PRN ×2 (05:04)
[2020-05-12] MEDS ORDERED: D5% in Water 1,000 ML IVC PRN (05:04)
[2020-05-12] MEDS ORDERED: *HR* Dextrose 50 % in Water (Vial) 50 ML VIAL IVP PRN (05:04)
[2020-05-12 05:17] LABS: Hematocrit 23.7 % (35.3-44.9); Hemoglobin 7.2 g/dL (11.5-15.4); Mean Corpuscular HGB Conc 30.4 g/dL (31.6-35.5); Mean Corpuscular Hemoglobin 29.3 pg (28.0-33.3); Mean Corpuscular Volume 96.3 fL (83.0-100.0); Mean Platelet Volume 11.2 fL (9.4-12.4); Platelet Count 122 K/mcL (140-400); Red Blood Count 2.46 M/mcL (3.82-4.97); Red Cell Distribution Width 14.6 % (11.5-14.5); White Blood Count 7.1 K/mcL (4.3-11.1)
[2020-05-12 05:37] LABS: Calcium 8.2 mg/dL (8.6-10.3); Potassium 4.2 mEq/L (3.5-5.1)
[2020-05-12] MEDS: Insulin LISPRO 300 UNITS/3 ML VIAL SQ SCH ×3 (07:55→16:42)
[2020-05-12 14:26] LABS: Hematocrit 22.2 % (35.3-44.9); Hemoglobin 6.7 g/dL (11.5-15.4)
[2020-05-12] MEDS ORDERED: Ondansetron ODT 4 MG TAB.RAPDIS PO PRN (16:47)
[2020-05-12] MEDS ORDERED: Albuterol 2.5 MG/3 ML NEBULIZER IH PRN (16:47)
[2020-05-12] MEDS ORDERED: 0.9 % Sodium Chloride 250 ML ONE (19:27)
[2020-05-12] MEDS: hydrALAZINE 25 MG TABLET PO SCH (22:32)
[2020-05-12] MEDS: cloNIDine HCL 0.1 MG TABLET PO SCH (22:32)
[2020-05-12] MEDS: Aspirin Enteric Coated 81 MG Tablet PO SCH (22:32)
[2020-05-13 04:51] LABS: Hemoglobin 7.6 g/dL (11.5-15.4); Mean Corpuscular HGB Conc 31.7 g/dL (31.6-35.5); Mean Corpuscular Volume 94.9 fL (83.0-100.0); Mean Platelet Volume 11.3 fL (9.4-12.4); Platelet Count 109 K/mcL (140-400); Red Blood Count 2.53 M/mcL (3.82-4.97); Red Cell Distribution Width 15.2 % (11.5-14.5)
[2020-05-13 05:06] LABS: Calcium 8.2 mg/dL (8.6-10.3); Potassium 3.8 mEq/L (3.5-5.1)
[2020-05-13] MEDS: Insulin LISPRO 300 UNITS/3 ML VIAL SQ SCH ×3 (09:27→16:18)
[2020-05-13] MEDS: Bumetanide 1 MG TABLET PO SCH (09:28)
[2020-05-13] MEDS: Cyanocobalamin (B-12) 1,000 MCG TABLET PO SCH (09:28)
[2020-05-13] MEDS: Fluticasone Propionate Nasal 50 MCG/SPRAY BOTTLE NS SCH (09:29)
[2020-05-13] MEDS: allopurinoL 100 MG TABLET PO SCH (09:29)
[2020-05-13] MEDS: hydrALAZINE 25 MG TABLET PO SCH ×3 (09:29→22:06)
[2020-05-13] MEDS: cloNIDine HCL 0.1 MG TABLET PO SCH ×3 (09:29→22:05)
[2020-05-13 15:07] LABS: Hematocrit 24.8 % (35.3-44.9); Hemoglobin 7.9 g/dL (11.5-15.4)
[2020-05-13] MEDS ORDERED: Morphine Sulfate 2 MG/ML SYRINGE IVP ONE (16:04)
[2020-05-13] MEDS: Cholecalciferol (D-3) 1,000 UNIT (25MCG) TABLET PO SCH (16:17)
[2020-05-13] MEDS: Magnesium Oxide 400 MG TABLET PO SCH (16:17)
[2020-05-13] MEDS ORDERED: *HR* HYDROcodone/Acet 5/325 mg TABLET PO ONE (16:26)
[2020-05-13 18:55] LABS: Bilirubin,Urine Negative (Negative); Blood,Urine Negative (Negative); Clarity,Urine Clear (Clear); Color,Urine Colorless (Yellow); Glucose,Urine (UA) Normal (Normal); Ketones,Urine Negative (Negative); Leukocyte Esterase,Urine Negative (Negative); Nitrite,Urine Negative (Negative); Protein,Urine 50 mg/dL (Neg-Trace); RBC,Urine 0-3 per hpf (0-3); Specific Gravity,Urine 1.011 (1.010-1.025); Squamous Epithelial Cell,Urine Few per hpf (None-Few); Urobilinogen,Urine Normal (Normal); WBC,Urine 0-3 per hpf (0-3)
[2020-05-13] MEDS: QUEtiapine Fumarate 25 MG TABLET PO SCH (22:00)
[2020-05-13] MEDS: Aspirin Enteric Coated 81 MG Tablet PO SCH (22:04)
[2020-05-14 02:29] LABS: Hematocrit 24.7 % (35.3-44.9); Hemoglobin 7.6 g/dL (11.5-15.4); Mean Corpuscular HGB Conc 30.8 g/dL (31.6-35.5); Mean Corpuscular Hemoglobin 28.9 pg (28.0-33.3); Mean Corpuscular Volume 93.9 fL (83.0-100.0); Mean Platelet Volume 11.9 fL (9.4-12.4); Platelet Count 107 K/mcL (140-400); Red Blood Count 2.63 M/mcL (3.82-4.97); White Blood Count 7.8 K/mcL (4.3-11.1)
[2020-05-14 02:48] LABS: Calcium 8.3 mg/dL (8.6-10.3); Potassium 3.4 mEq/L (3.5-5.1)
[2020-05-14] MEDS ORDERED: DiphenhydraMINE CREAM 28.4 GM TUBE TP PRN (03:34)
[2020-05-14 07:11] LABS: Hematocrit 24.1 % (35.3-44.9); Hemoglobin 7.4 g/dL (11.5-15.4)
[2020-05-14] MEDS: Insulin LISPRO 300 UNITS/3 ML VIAL SQ SCH ×3 (08:03→16:30)
[2020-05-14] MEDS: cloNIDine HCL 0.1 MG TABLET PO SCH ×3 (09:17→22:24)
[2020-05-14] MEDS: Bumetanide 1 MG TABLET PO SCH (09:17)
[2020-05-14] MEDS: hydrALAZINE 25 MG TABLET PO SCH ×3 (09:18→22:25)
[2020-05-14] MEDS: allopurinoL 100 MG TABLET PO SCH (09:19)
[2020-05-14] MEDS: Cyanocobalamin (B-12) 1,000 MCG TABLET PO SCH (09:19)
[2020-05-14] MEDS: Fluticasone Propionate Nasal 50 MCG/SPRAY BOTTLE NS SCH (09:21)
[2020-05-14 11:35] LABS: Hematocrit 23.1 % (35.3-44.9); Hemoglobin 7.1 g/dL (11.5-15.4)
[2020-05-14 15:10] LABS: Hematocrit 23.3 % (35.3-44.9); Hemoglobin 7.1 g/dL (11.5-15.4)
[2020-05-14] MEDS: Cholecalciferol (D-3) 1,000 UNIT (25MCG) TABLET PO SCH (15:21)
[2020-05-14] MEDS: Magnesium Oxide 400 MG TABLET PO SCH (15:21)
[2020-05-14 19:16] LABS: Hematocrit 23.6 % (35.3-44.9); Hemoglobin 7.2 g/dL (11.5-15.4)
[2020-05-14 22:19] VITALS: BP 162/66
[2020-05-14] MEDS: Aspirin Enteric Coated 81 MG Tablet PO SCH (22:24)
[2020-05-14] MEDS: QUEtiapine Fumarate 25 MG TABLET PO SCH (22:32)
[2020-05-14 23:55] LABS: Hematocrit 25.2 % (35.3-44.9); Hemoglobin 7.9 g/dL (11.5-15.4)
[2020-05-15 04:20] LABS: Hematocrit 23.4 % (35.3-44.9); Hemoglobin 7.2 g/dL (11.5-15.4); Mean Corpuscular HGB Conc 30.8 g/dL (31.6-35.5); Mean Corpuscular Hemoglobin 28.9 pg (28.0-33.3); Mean Platelet Volume 11.5 fL (9.4-12.4); Platelet Count 105 K/mcL (140-400); Red Blood Count 2.49 M/mcL (3.82-4.97); Red Cell Distribution Width 14.5 % (11.5-14.5); White Blood Count 7.2 K/mcL (4.3-11.1)
[2020-05-15 04:41] LABS: Calcium 8.1 mg/dL (8.6-10.3); Potassium 3.4 mEq/L (3.5-5.1)
[2020-05-15] MEDS: Insulin LISPRO 300 UNITS/3 ML VIAL SQ SCH ×2 (08:10→12:16)
[2020-05-15] MEDS: cloNIDine HCL 0.1 MG TABLET PO SCH ×2 (09:16→14:04)
[2020-05-15] MEDS: hydrALAZINE 25 MG TABLET PO SCH ×2 (09:16→14:04)
[2020-05-15] MEDS: Bumetanide 1 MG TABLET PO SCH (09:17)
[2020-05-15] MEDS: allopurinoL 100 MG TABLET PO SCH (09:18)
[2020-05-15] MEDS: Cyanocobalamin (B-12) 1,000 MCG TABLET PO SCH (09:19)
[2020-05-15] MEDS: Fluticasone Propionate Nasal 50 MCG/SPRAY BOTTLE NS SCH (09:22)
[2020-05-15] MEDS: Cholecalciferol (D-3) 1,000 UNIT (25MCG) TABLET PO SCH (14:04)
[2020-05-15] MEDS: Magnesium Oxide 400 MG TABLET PO SCH (14:04)
== END 2020-05-15 16:47 | disposition home health service (06) ==
LOC: 3BNU 00:55 → EMEROOARM 00:55 → SUATTDRO 03:11 → 3BNU 03:58
PROVIDERS: ADMIT Internal Medicine; ATTEND Nurse Practitioner Adult Health